=== PATIENT | female | born 1980 | race Caucasian/White ===

== ENCOUNTER 2023-11-29 10:17 | Outpatient (REF) | payer BC, SELFPAY ==
--- OUTSIDE RECORDS SUMMARY | 2023-11-29 10:22 | XMS_ITS | Referral Summary ---
Author Organization [facility] Address [address] [place] [address]. [place] [address] Care Team Providers Care Graphics Artist Name Role Phone Sanjuana Ambrocio PA-C Primary Care Provide r Encounters Date Type Department Care Team Description 09/10/2023 Medical Correspondence [facility] [address] [place] [address] Scan, Non-Provider 09/10/2023 Transcribe Orders GENERIC EXTERNAL DATA DEPARTMENT Provider, Generic External Data Hypothyroidism (Primary Dx) from Last 3 Months Allergies No known active allergies Medications Medication Sig Dispensed Refills Start Date End Date Status ARMOUR THYROID PO Take 135 mg by mouth daily 04/19/2020 Active Vit-Fe Fumarate-FA ( MULTIVITAMIN W/IRON) 27-0.8 MG tablet Take 1 tablet by mouth At Bedtime Active Vitamin D3 (CHOLECALCIFEROL) 25 mcg (1000 units) tablet Take 1 tablet by mouth daily Active oxyCODONE (ROXICODONE) 5 MG tabletIndications:Po stoperative pain One or two tablets PO q4h prn pain 12 tablet 08/24/2022 Active Additional Information Patient not taking.Reported on 09/25/2022 Active Problems Problem Noted Date Diagnosed Date Vaginal bleeding 08/23/2022 Hyponatremia 01/20/2022 Anemia due to blood loss, acute 01/20/2022 Hypothyroidism 01/20/2022 Pre-eclampsia, severe 01/20/2022 PIH ( induced hypertension) 01/16/2022 , 30 wks gestation 01/05/2022 Delivery with history of 04/21/2020 Status post 04/20/2020 Iron deficiency anemia, unspecified 01/26/2020 PIH ( induced hypertension), antepartum 04/07/2018 Resolved Problems Problem Noted Date Diagnosed Date Resolved Date Encounter for triage in patient 01/04/2022 01/05/2022 Social History Tobacco Use Types Packs/Day Years Used Date Smoking Tobacco: Never Smokeless Tobacco: Never Tobacco Cessation:Counseling Given: Not Answered Alcohol Use Standard Drinks/Week Comments Not Currently 0 (1 standard drink = 0.6 oz pur e alcohol) [place] Depression Scale Answer Date Recorded Last EPDS Total Score Not on file 01/21/2022 The thought of harming myself has occurred to me . Never 01/21/2022 Adolescent Education Answer Date Record ed Getting School Help Needed Not on file 01/12 Sex and Gender Information Value Date Recorded Sex Assigned at Not on file Gender Identity Not on file Sexual Orientation Not on file Last Filed Vital Signs Vital Sign Reading Time Taken Comments Blood Pressure 119/77 10/25/2022 11:48 AM CDT Pulse 62 10/25/2022 11:48 AM CDT Temperature 36.5 ??C (97.7 ??F) 10/25/2022 8:24 AM CD T Respiratory Rate 16 10/25/2022 8:24 AM CDT Oxygen Saturation 95% 10/25/2022 8:24 AM CDT Inhaled Oxygen Concentration - - Weight 89.9 kg (198 lb 3.1 oz) 08/23/2022 10:27 PM CDT Height 160 cm (5' 3) 08/23/2022 10:27 PM CDT Body Mass Index 35.11 08/23/2022 10:27 PM CDT Plan of Treatment Upcoming Encounters Date Type Department Care Team (Late st Contact Info) Description 05/05/2024 11:00 AM NREMT Virtual Visit [facility] [address] [place] [address] Lexi Low MD [address] [place] [address] Procedures Procedure Name Priority Date/Time Associated Diagnosis Comments GLUCOSE BY METER Routine 08/24/2022 6:02 AM CDT HIV 1&2 ANTIBODY (EXTERNAL RESULT) Routine 08/07/2021 from Last 3 Months or Most Recently Relevant to Health Maintenance Results * (ABNORMAL) Glucose by meter (08/24/2022 6:02 AM CDT) GLUCOSE BY METER POCT 127(H) 70 - 99 mg/dL 08/24/2022 6:09 AM CDT [facility] POCT RESULTS Blood, Capillary BLOOD SPECIMEN / Unknown 08/24/2022 6:02 AM CDT 08/24/2022 6:09 AM CDT Matheus Gordillo MD LAB - BEAKER POCT Performing Organization Address City/[facility]/ZIP Co de Phone Number [facility] POCT RESULTS [address] [place] [address] * HIV-1 Antibody (External Result) (08/07/2021) HIV 1&2 Antibody (External) Nonreactive Nonreactive EXTERNAL LAB 08/07/2021 Patient Reported LAB - HIM EXTERNAL R ESULT Performing Organization Address City/[facility]/ZIP Co de Phone Number EXTERNAL LAB External Lab from Last 3 Months or Most Recently Relevant to Health Maintenance Advance Directives For more information, please contact: [phone] * Full Code (Latest Code Status on File) Date Activated Date Inactivated Comments 08/23/2022 10:20 PM 08/24/2022 10:23 PM All basic an d advanced life-sustaining interventions are performed as appropriate Question Answer Comments Code status determined by: Other (please tucker t) * Full Code Date Activated Date Inactivated Comments 01/18/2022 12:15 PM 01/22/2022 4:37 PM All basic a nd advanced life-sustaining interventions are performed as appropriate Question Answer Comments Code status determined by: Other (please tucker t) * Full Code Date Activated Date Inactivated Comments 01/16/2022 7:34 PM 01/18/2022 12:15 PM All basic a nd advanced life-sustaining interventions are performed as appropriate Question Answer Comments Code status determined by: Other (please tucker t) * Full Code Date Activated Date Inactivated Comments 01/05/2022 6:11 AM 01/05/2022 2:12 PM All basic an d advanced life-sustaining interventions are performed as appropriate Question Answer Comments Code status determined by: Other (please tucker t) Care Teams Graphics Artist Relationship Specialty Start Date End Date Sanjuana Ambrocio PA-C [facility] [address] [place] [address] PCP - General deicer kit assembler 09/11/23
--- OUTSIDE RECORDS SUMMARY | 2023-11-29 10:22 | XMS_ITS | Clinical Summary ---
Author Organization [facility] Address [address] [place] [address] Care Team Providers Care Newsperson Name Role Phone Sanjuana Ambrocio PAKadie Primary Care Provide r Allergies No known active allergies Medications Medication [...] Encounter for triage in patient 01/04/2022 01/05/2022 Encounters Date Type Department Care Team Description 09/10/2023 Medical Correspondence [facility] Info Mgmt Srvcs [address] [address] Scan, Non-Provider 09/10/2023 Transcribe Orders GENERIC EXTERNAL DATA DEPARTMENT Provider, Generic External Data Hypothyroidism (Primary Dx) from Last 3 Months Social History Tobacco Use Types Packs/Day Years Used Date Smoking Tobacco: Never Smokeless Tobacco: Never Tobacco Cessation:Counseling Given: Not Answered Alcohol Use Standard Drinks/Week Comments Not Currently 0 (1 standard drink = 0.6 oz pur e alcohol) [place] Depression Scale Answer Date Recorded Last EPDS [...] st Contact Info) Description 05/05/2024 11:00 AM BROADCAST MAINTENANCE ENGINEER Virtual Visit [facility] [address] [place] [address] Lexi Low MD [address] [place] [address] Health Maintenance Due Date Last Done Comments ADVANCE CARE PLANNING 1981 ANNUAL REVIEW OF HM ORDERS 1981 MAMMO SCREENING 1981 TSH W/FREE T4 REFLEX 1981 YEARLY PREVENTIVE VISIT 1981 HEPATITIS C SCREENING 11/07/1999 HEPATITIS B IMMUNIZATION (1 of 3 - 19+ 3-dose series) 2000 DTAP/TDAP/TD IMMUNIZATION (1 - Tdap) 2006 LIPID 2021 PAP 10/28/2022 10/29/2019, 10/29/2019 COVID-19 Vaccine ( season) 2022 PHQ-2 (once per calendar year) 2023 INFLUENZA VACCINE (#1) 2023 GLUCOSE 08/24/2025 08/24/2022, 05/0 07/2022, 01/20/2022, Additional history exists HIV SCREENING Completed 08/07/2021, 08/07/2021 HPV IMMUNIZATION Aged Out No longer e ligible based on patient's age to complete this topic IPV IMMUNIZATION Aged Out No longer e ligible based on patient's age to complete this topic MENINGITIS IMMUNIZATION Aged Out No l onger eligible based on patient's age to complete this topic Pneumococcal Vaccine: Pediatrics (0 to 5 Years) and At-Risk Patients (6 to 64 Years) Aged Out No longer eligible based on patient's age to complete this topic RSV MONOCLONAL ANTIBODY Aged Out No l onger eligible based on patient's age to complete this topic Procedures Procedure Name Priority Date/Time Associated Diagnosis Comments GLUCOSE BY METER Routine 08/24/2022 6:02 AM CDT HIV 1&2 ANTIBODY (EXTERNAL RESULT) Routine 08/07/2021 from Last 3 Months or Most Recently Relevant to Health Maintenance Results * (ABNORMAL) Glucose by meter (08/24/2022 6:02 AM CDT) GLUCOSE BY METER POCT 127(H) 70 - 99 mg/dL 08/24/2022 6:09 AM CDT [facility] POCT RESULTS Blood, Capillary BLOOD SPECIMEN / Unknown 08/24/2022 6:02 AM CDT 08/24/2022 6:09 AM CDT Matheus Gordillo MD LAB - CHRYSTALAKER POCT [facility] POCT RESULTS [address] [place] [address] * HIV-1 Antibody (External Result) (08/07/2021) HIV 1&2 Antibody (External) Nonreactive Nonreactive EXTERNAL LAB 08/07/2021 Patient Reported LAB - HIM EXTERNAL R ESULT EXTERNAL LAB External Lab from Last 3 Months or Most Recently Relevant to Health Maintenance Advance Directives For more information, please contact: [phone] * Full Code (Latest Code Status on File) Date Activated Date Inactivated Comments 08/23/2022 10:20 PM 08/24/2022 10:23 PM All basic an d advanced life-sustaining interventions are performed as appropriate Question Answer Comments Code status determined by: Other (please documen t) * Full Code Date Activated Date Inactivated Comments 01/18/2022 12:15 PM 01/22/2022 4:37 PM All basic a nd advanced life-sustaining interventions are performed as appropriate Question Answer Comments Code status determined by: Other (please documen t) * Full Code Date Activated Date Inactivated Comments 01/16/2022 7:34 PM 01/18/2022 12:15 PM All basic a nd advanced life-sustaining interventions are performed as appropriate Question Answer Comments Code status determined by: Other (please documen t) * Full Code Date Activated Date Inactivated Comments 01/05/2022 6:11 AM 01/05/2022 2:12 PM All basic an d advanced life-sustaining interventions are performed as appropriate Question Answer Comments Code status determined by: Other (please tucker balderas) Care Teams Newsperson Relationship Specialty Start Date End Date Sanjuana Ambrocio PA-C [facility] [address] [address] PCP - General desktop support engineer 09/11/23
--- OUTSIDE RECORDS SUMMARY | 2023-11-29 10:23 | XMS_ITS | Encounter Summary ---
Author Organization [facility] Address [facility] [place] [address] Care Team Providers Care Epidemiology Intern Name Role Phone Luan Inman MD Primary Care Provide r Reason for Referral * Consultation (Routine) - Pending Review Specialty Diagnoses / Procedures Referred By Contac t Referred To Contact Endocrinology, Diabetes, and Metabolism Diagnoses Hypothyroidism Generic External Data Department Referral ID Status Reason Start Date Expiration Date V isits Requested Visits Authorized [id number] Pending Review 09/10/2023 09/09/2024 1 1 Question Answer Reason for Referral: Thyroid Scheduling Instructions: Link Trigger will call you to coordinate your care as prescribed by the provider. If you don? t hear from a entry level sales representative within 2 business days, please call [phone]. Comments Referred by: Nicolette Ambrocio [facility] Link Trigger will call you to coordinate your care as prescribed by the provider. If you don? t hear from a entry level sales representative within 2 business days, please call [phone]. Encounter Details Date Type Department Care Team (Latest Contact Info) Description 09/10/2023 Transcribe Orders GENERIC EXTERNAL DATA DEPARTMENT Provider, Generic External Data Hypothyroidism (Primary Dx) Social History Tobacco Use Types Packs/Day Years Used Date Smoking Tobacco: Never Smokeless Tobacco: Never Alcohol Use Standard Drinks/Week Comments Not Currently 0 (1 standard drink = 0.6 oz pur e alcohol) [place] Depression Scale Answer Date Recorded Last EPDS Total Score Not on file 01/21/2022 The thought of harming myself has occurred to me . Never 01/21/2022 Adolescent Education Answer Date Record ed Getting School Help Needed Not on file 01/12 Sex and Gender Information Value Date Recorded Sex Assigned at Not on file Gender Identity Not on file Sexual Orientation Not on file documented as of this encounter Plan of Treatment Upcoming Encounters Date Type Department Care Team (Late st Contact Info) Description 05/05/2024 11:00 AM ROOF FIXER Virtual Visit [facility] [address] [address] Lexi Low MD [address] [place] [address] Scheduled Referrals Name Type Priority Associated Diagnoses Orde r Schedule Adult Endocrinology Machinist Mechanic Referral Referral Routine Hypothyroidism Expected: 09/10/2023 (Approximate), Expires: 09/09/2024 documented as of this encounter Visit Diagnoses Diagnosis Hypothyroidism- Primary Unspecified hypothyroidism documented in this encounter Care Teams Epidemiology Intern Relationship Specialty Start Date End Date Luan Inman MD [facility] [address]TI [address] [address] PCP - General transition social worker 04/07/18 09/10/23 documented as of this encounter
--- OUTSIDE RECORDS SUMMARY | 2023-11-29 10:23 | XMS_ITS | Clinical Summary ---
Author Organization [facility] Address [address] [place] [address] Care Team Providers Care Mastic Sprayer Name Role Phone Dagoberto Hernández M.D. Primary Care Provider [phone] Source Comments Patient records contain information from all sites at [facility]. For routine questions regarding patient records, call [phone] during business hours, M-F 8:00 AM - 5:00 PM Central Time. Record requests for emergency care only can be directed to [phone] at any time.[facility] Allergies No known active allergies Medications Medication Sig Dispensed Refills Start Date End Date Status ibuprofen (ADVIL,MOTRIN) 800 mg tablet Take 800 mg by mouth. 04/10/2018 Active RUBBER CHEMIST THYROID 120 mg tablet Take 1 tablet (120 mg total) by mouth daily. 90 tablet 3 08/14/2018 Active medroxyPROGESTERone (PROVERA) 10 mg tablet 08/17/2019 Active multivitamin (Multiple Vitamins) tablet Take 1 tablet by mouth daily. Active thyroid, pork, ([place] Thyroid) 120 mg tablet Take 120 mg by mouth. Active estradioL (ESTRACE) 0.1 mg/g (0.01%) vaginal creamIndications:At rophy Vagina Due To Estrogen Deficiency Insert 1 g into the vagina as directed. Insert 1 gram vaginally at bedtime on MWF. 42.5 g 3 12/20/2022 12/20/2023 Active cholecalciferol, vitamin D3, 25 mcg (1,000 Unit) tablet Take 1 tablet by mouth daily. Active [place] Thyroid 30 mg tablet 01/28/2023 Active Active Problems Problem Noted Date Diagnosed Date Hypothyroidism 09/04/2019 Encounters Date Type Department Care Team Description 09/24/2023 Orders Only [facility] PCP [facility] MNT Dagoberto Hernández M.D. Hypothyroidism from Last 3 Months Social History Tobacco Use Types Packs/Day Years Used Date Smoking Tobacco: Never Smokeless Tobacco: Never Tobacco Cessation:Counseling Given: Not Answered Alcohol Use Standard Drinks/Week Comments No 0 (1 standard drink = 0.6 oz pur e alcohol) PHQ-2 Answer Date Recorded PHQ-2 Score 0 09/04/2019 Nutrition Answer Date Recorded Nutrition: EVOO Fat Source Unknown 06/20 Nutrition: Servings of Fruits/Vegetables per Day Not on file 06/20/2020 Dental Answer Date Recorded Dental: Regular Dentist Unknown 06/21/19 21 Sex and Gender Information Value Date Recorded Sex Assigned at Not on file Gender Identity Not on file Sexual Orientation Not on file Last Filed Vital Signs Vital Sign Reading Time Taken Comments Blood Pressure 128/87 01/06/2023 8:40 PM CDT Pulse 88 11/03/2020 3:14 PM CDT Temperature 36.8 ??C (98.2 ??F) 01/06/2023 8:40 PM CD T Respiratory Rate 20 01/06/2023 8:40 PM CDT Oxygen Saturation 98% 01/06/2023 8:40 PM CDT Inhaled Oxygen Concentration - - Weight 88.1 kg (194 lb 3.6 oz) 12/20/2022 8:30 A M CDT Height 160 cm (5' 2.99) 09/04/2019 2:44 PM CDT Body Mass Index 34.41 09/04/2019 2:44 PM CDT Plan of Treatment Health Maintenance Due Date Last Done Comments HIV Screening 1981 Hepatitis C Screening 1981 Lipid (Cholesterol) Screening 1981 Mammogram 1981 DTaP,Tdap,and Td Vaccines (1 - Tdap) 2000 Hepatitis B Vaccines (1 of 3 - 19+ 3-dose series) 2000 Thyroid Stimulating Hormone (TSH) test for thyroid function 06/16/2022 06/16/2021, 09/04/2019, 08/11/2018 COVID-19 Vaccine ( - 2022-2 4 season) 2022 Depression Screening (Annual PHQ-2) 04/22/2023 Influenza Vaccine (#1) 2024 HPV Vaccines Aged Out No longer eligi ble based on patient's age to complete this topic Pneumococcal vaccine (0-64 years) Aged Out No longer eligible b ased on patient's age to complete this topic Procedures Procedure Name Priority Date/Time Associated Diagnosis Comments THYROID-STIMULATING HORMONE-SENSITIVE (S-TSH) Routine 06/16/2021 3:42 PM ELECTRONIC GLUING MACHINE OPERATOR Hypothyroidism from Last 3 Months or Most Recently Relevant to Health Maintenance Results * S-TSH (Thyroid-Stimulating Hormone - Sensitive) (06/16/2021 3:42 PM ELECTRONIC GLUING MACHINE OPERATOR) TSH, Sensitive 0.3 0.3 - 4.2 mIU/L 06/16/2021 4:38 PM ELECTRONIC GLUING MACHINE OPERATOR CNFL Blood (Blood, Venous) 06/16/2021 3:42 PM ELECTRONIC GLUING MACHINE OPERATOR 06/16/2021 3:44 PM ELECTRONIC GLUING MACHINE OPERATOR Dagoberto Hernández M.D. LAB BLOOD ADD-ON [facility] [address] [place] [address], [place] CNFL [facility] [place] [id number] [place] [address] from Last 3 Months or Most Recently Relevant to Health Maintenance Care Teams Mastic Sprayer Relationship Specialty Start Date End Date Dagoberto Hernández M.D. [address] [place] [phone] PCP - General Family Medicine 08/11/18
--- OUTSIDE RECORDS SUMMARY | 2023-11-29 10:23 | XMS_ITS | Encounter Summary ---
Author Organization [facility] Address [address] [place] [address] Care Team Providers Care Yarn Mercerizer Operator Helper Name Role Phone Dagoberto Hernández M.D. Primary Care Provider [phone] Encounter Details Date Type Department Care Team ([facility] st Contact Info) Description 09/24/2023 Orders Only [facility] PCP [facility] Dagoberto Mays M.D. [address] [place] [phone] Hypothyroidism Social History Tobacco Use Types Packs/Day Years Used Date Smoking Tobacco: Never Smokeless Tobacco: Never Alcohol Use Standard Drinks/Week Comments No 0 [...] as of this encounter Plan of Treatment Scheduled Orders Name Type Priority Associated Diagnoses Orde r Schedule S-TSH (Thyroid-Stimulating Hormone - Sensitive) Lab Routine Hypothyroidism Expected: 10/08/2023, Expires: 03/22/2024 documented as of this encounter Visit Diagnoses Diagnosis Hypothyroidism documented in this encounter Care Teams Yarn Mercerizer Operator Helper Relationship Specialty Start Date End Date Dagoberto Hernández M.D. [address] [place] [phone] PCP - General Family Medicine 08/11/18 documented as of this encounter
--- OUTSIDE RECORDS SUMMARY | 2023-11-29 10:23 | XMS_ITS ---
Author Organization [facility] Address [address] [place] [address] Care Team Providers Care Living Supervisor Name Role Phone Unavailable Unavailable Unavailable Surgery Details Not on file Complications Check Surgery Details section. Procedure Estimated Blood Loss Check Surgery Details section. Procedure Findings Check Surgery Details section. Procedure Specimens Taken Check Surgery Details section.
--- OUTSIDE RECORDS SUMMARY | 2023-11-29 10:23 | XMS_ITS | Encounter Summary ---
Author Organization [facility] Address [address] [place] [address]. [place] [address] Care Team Providers Care Punch Out Crew Member Name Role Phone Luan Inman MD Primary Care Provide r Sanjuana Ambrocio PA-C Primary Care Provide r Encounter Details Date Type Department Care Team (Late Contact Info) Description 09/10/[address] [facility] Info Mgmt vcs [address] [place] [phone] Scan, Non-Provider Social History Tobacco Use Types Packs/Day Years Used Date Smoking Tobacco: Never Smokeless Tobacco: Never Alcohol Use Standard Drinks/Week Comments Not Currently 0 (1 standard drink = 0.6 oz pur e alcohol) [place] Depression Scale Answer Date Recorded Last EPDS [...] Encounters Date Type Department Care Team (Late Contact Info) Description 05/05/2024 11:00 AM FIRE SERVICES PLUMBER Virtual Visit [facility] [address] [place] [phone] Lexi Low MD [address] [place] [address] documented as of this encounter Visit Diagnoses Not on filedocumented in this encounter Care Teams Punch Out Crew Member Relationship Specialty Start Date End Date Luan Inman MD [facility] SHILPI BHATTI [address] [address] PCP - General bookkeeper assistant 04/07/18 09/10/23 Sanjuana Ambrocio PA-C [facility] [address] [place] [address] PCP - General bookkeeper assistant 09/11/23 documented as of this encounter
--- OUTSIDE RECORDS SUMMARY | 2023-11-29 10:23 | XMS_ITS | Referral Summary ---
Author Organization [facility] Address [address] [place] [address] Care Team Providers Care Ward Assistant Name Role Phone Dagoberto Hernández M.D. Primary Care Provider [phone] Source Comments Patient records contain information from all sites at [facility]. For routine questions regarding patient records, call [phone] during business hours, M-F 8:00 AM - 5:00 PM Central Time. Record requests for emergency care only can be directed to [phone] at any time.[facility] Encounters Date Type Department Care Team Description 09/24/2023 Orders Only [facility] MNT Dagoberto Hernández M.D. Hypothyroidism from Last 3 Months Allergies No known active allergies Medications Medication Sig Dispensed Refills Start Date End Date Status ibuprofen (ADVIL,MOTRIN) 800 mg tablet Take 800 mg by mouth. 04/10/2018 Active CUSTOMS INVESTIGATOR THYROID 120 mg tablet Take 1 tablet (120 mg total) by mouth daily. 90 tablet 3 08/14/2018 Active medroxyPROGESTERone (PROVERA) 10 mg tablet 08/17/2019 Active multivitamin (Multiple Vitamins) tablet Take 1 tablet by mouth daily. Active thyroid, pork, ([place] Thyroid) 120 mg tablet Take 120 mg by mouth. Active estradioL (ESTRACE) 0.1 mg/g (0.01%) vaginal creamIndications:At rophy Vagina Due To Estrogen Deficiency Insert 1 g into the vagina as directed. Insert 1 gram vaginally at bedtime on MWF. 42.5 g 3 12/20/2022 12/20/2023 Active cholecalciferol, vitamin D3, 25 mcg (1,000 Unit) tablet Take 1 tablet by mouth daily. Active [place] Thyroid 30 mg tablet 01/28/2023 Active Active Problems Problem Noted Date Diagnosed Date Hypothyroidism 09/04/2019 Social History Tobacco Use Types Packs/Day Years [...] 09/04/2019 2:44 PM CDT Plan of Treatment Not on file Procedures Procedure Name Priority Date/Time Associated Diagnosis Comments THYROID-STIMULATING HORMONE-SENSITIVE (S-TSH) Routine 06/16/2021 3:42 PM SHOOTER'S HELPER Hypothyroidism from Last 3 Months or Most Recently Relevant to Health Maintenance Results * S-TSH (Thyroid-Stimulating Hormone - Sensitive) (06/16/2021 3:42 PM SHOOTER'S HELPER) TSH, Sensitive 0.3 0.3 - 4.2 mIU/L 06/16/2021 4:38 PM SHOOTER'S HELPER CNFL Blood (Blood, Venous) 06/16/2021 3:42 PM SHOOTER'S HELPER 06/16/2021 3:44 PM SHOOTER'S HELPER Dagoberto Hernández M.D. LAB BLOOD ADD-ON [facility] [address] [place] [address], [place] CNFL [facility] in [address] [address] from Last 3 Months or Most Recently Relevant to Health Maintenance Care Teams Ward Assistant Relationship Specialty Start Date End Date Dagoberto Hernández M.D. [address] [place] [phone] PCP - General Family Medicine 08/11/18
--- OUTSIDE RECORDS SUMMARY | 2023-11-29 10:23 | XMS_ITS | Encounter Summary ---
Author Organization [place] Address [address] [place] [address] Care Team Providers Care Pasting Machine Operator Name Role Phone Luan Inman MD Primary Care Provide r Sanjuana Ambrocio PA-C Primary Care Provide r Encounter Details Date Type Department Care Team (Late st Contact Info) Description 11/17/2020 Documentation Only INTERFACED REPORT Unknown, Provider Social History Tobacco Use Types Packs/Day Years Used Date Smoking Tobacco: Never Smokeless Tobacco: Never Alcohol Use Standard Drinks/Week Comments Not Currently 0 (1 standard drink = 0.6 oz pur e alcohol) Sex and Gender Information Value Date Recorded Sex Assigned at Not on file Gender Identity Not on file Sexual Orientation Not on file documented as of this encounter Plan of Treatment Upcoming Encounters Date Type Department Care Team (Late st Contact Info) Description 05/05/2024 11:00 AM PRODUCTION HARDENER Virtual Visit [facility] End[facility]inology Clinic [address] [address] Lexi Low MD [address] [place] [phone] documented as of this encounter Visit Diagnoses Not on filedocumented in this encounter Care Teams Pasting Machine Operator Relationship Specialty Start Date End Date Luan Inman MD [address] [place] [address] PCP - General hide shaker 04/07/18 09/10/23 Sanjuana Ambrocio PA-C [facility] [address] [place] [address] PCP - General hide shaker 09/11/23 documented as of this encounter
[2023-11-29 10:53] LABS: Albumin* 4.3 g/dL (3.3-5.0); Chloride* 104 mmol/L (96-114)
[2023-11-29 10:54] LABS: Potassium* 4.2 mmol/L (3.6-5.1); Sodium* 138 mmol/L (135-149)
[2023-11-29 10:56] LABS: Alkaline Phosphatase* 69 U/L (40-150); Anion Gap 7 mEq/L (7-15); Aspartate Amino Transferase* 28 U/L (12-35); Bilirubin Direct* 0.3 mg/dL (0.0-0.5); Bilirubin Total* 0.8 mg/dL (0.1-1.5); Blood Urea Nitrogen* 15 mg/dL (5-24); Carbon Dioxide* 27 mmol/L (20-32); Cholesterol* 212 mg/dL (90-199); Creatinine* 0.6 mg/dL (0.5-1.5); Estimated Glomerular Filt Rate 115 ml/min; Total Protein* 7.5 g/dL (6.0-8.3)
[2023-11-29 10:57] LABS: Alanine Aminotransferase* 15 U/L (4-35); Calcium* 9.2 mg/dL (8.4-10.6); Glucose* 89 mg/dL (60-115); HDL Cholesterol* 48 mg/dL (>=50); Triglycerides* 97 mg/dL (40-149)
[2023-11-29 11:03] LABS: C Reactive Protein* < 0.5 mg/dL (0.5-1.0); LDL Cholesterol Calculated 145 mg/dL (<100)
[2023-11-29 11:13] LABS: Free T4 Free Thyroxine* 0.58 ng/dL (0.70-1.85)
[2023-11-29 11:59] LABS: Erythrocyte SedimentationRate* 5 mm/hr (2-20)
[2023-11-30 12:19] LABS: Estradiol Premenol Female 159 pg/mL
[2023-11-30 13:06] LABS: Prolactin 9.7 ng/mL (2.8-29.2)
[2023-11-30 18:42] LABS: Cortisol, Serum 14.7 ug/dL; Follicle Stimulating Hormone 1.8 IU/L; Luteinizing Hormone, Serum 4.2 IU/L
[2023-11-30 19:04] LABS: Free T3 2.4 pg/mL (2.5-4.3)
[2023-12-01 02:35] LABS: DHEAS 133 ug/dL (61-337)
[2023-12-04 00:44] LABS: Testosterone, Low Level 26 ng/dL (9-55)
[2023-12-04 01:52] LABS: Progesterone, HPLC-MS/MS 9.37 ng/mL
== END 2023-11-29 10:18 | disposition home or self-care (01) ==
LOC: NPINS 10:17
PROVIDERS: Visit Provider Family Medicine
DX: R53.83 Other fatigue (principal); E28.9 Ovarian dysfunction, unspecified; E03.9 Hypothyroidism, unspecified; E78.49 Other hyperlipidemia; E06.3 Autoimmune thyroiditis
CPT/HCPCS: 80048; 80061; 80076; 82533; 82627; 82670; 83001; 83002; 84144; 84146; 84403; 84439; 84443; 84481; 85651; 86140; 86376

== ENCOUNTER 2024-02-10 13:05 | Outpatient (REF) | payer BC, SELFPAY ==
--- OUTSIDE RECORDS SUMMARY | 2024-02-10 13:09 | XMS_ITS | Clinical Summary ---
Author Organization [place] Address [address] [place] [address] Care Team Providers Care Warping Machine Operator Name Role Phone Sanjuana Ambrocio PAKadie Primary [...] drink = 0.6 oz pur e alcohol) [place] Depression Scale Answer Date Recorded Last EPDS [...] st Contact Info) Description 05/05/2024 11:00 AM COMMUNICATIONS SUPERVISOR Virtual Visit [facility] Endocrinology Clinic [address] 3rd [place] [address] Lexi Low MBBS [address] [facility] [address] [place] [address] Health Maintenance Due Date Last Done Comments ADVANCE CARE PLANNING 1981 ANNUAL REVIEW OF HM ORDERS 1981 MAMMO SCREENING 1981 TSH W/FREE T4 REFLEX 1981 YEARLY PREVENTIVE VISIT 1981 HEPATITIS C SCREENING 11/07/1999 HEPATITIS B IMMUNIZATION (1 of 3 - 19+ 3-dose series) 2000 DTAP/TDAP/TD IMMUNIZATION (1 - Tdap) 2006 LIPID 2021 PAP 10/28/2022 10/29/2019, 10/29/2019 PHQ-2 (once per calendar year) 2023 COVID-19 Vaccine ( - 2023-25 season) 2023 INFLUENZA VACCINE (#1) 2023 GLUCOSE 08/24/2025 08/24/2022, 05/0 07/2022, 01/20/2022, Additional history exists RSV VACCINE (1 - 1-dose 75+ series) 2056 HIV SCREENING Completed 08/07/2021, 08/07/2021 HPV IMMUNIZATION [...] - 99 mg/dL 08/24/2022 6:09 AM CDT [facility] POCT RESULTS Blood, Capillary BLOOD SPECIMEN / Unknown 08/24/2022 6:02 AM CDT 08/24/2022 6:09 AM CDT Matheus Gordillo MD LAB - BEAKER POCT [facility] POCT RESULTS [address] [place] [address] * HIV-1 Antibody (External Result) (08/07/2021) HIV 1&2 Antibody (External) Nonreactive Nonreactive EXTERNAL LAB 08/07/2021 Patient Reported LAB - HIM EXTERNAL R ESULT EXTERNAL LAB External Lab from Last 3 Months or Most Recently Relevant to Health Maintenance Advance Directives For more information, please contact: [phone] * Full Code (Latest Code Status on [...] Comments Code status determined by: Other (please docgracie t) * Full Code Date Activated Date [...] Comments Code status determined by: Other (please docslickn t) Care Teams Warping Machine Operator Relationship Specialty Start Date End Date Sanjuana Ambrocio PA-C [facility] [address] [place] [address] PCP - General gum scoring machine operator 09/11/23
--- OUTSIDE RECORDS SUMMARY | 2024-02-10 13:09 | XMS_ITS | Referral Summary ---
Author Organization [facility] Address [address] [place] [address] Care Team Providers Care Business Analyst Consultant Name Role Phone Dagoberto Hernández M.D. Primary Care Provider [phone] Source Comments Patient records contain information from all sites at [facility]. For routine questions regarding patient records, call [phone] during business hours, M-F 8:00 AM - 5:00 PM Central Time. Record requests for emergency care only can be directed to [phone] at any time.[facility] Encounters Date Type Department Care Team Description 12/24/2023 Orders Only [facility] MNT Dagoberto Hernández M.D. Screening Lipid from Last 3 Months Allergies No known active allergies Medications * This document contains information received from the source organization and may not represent a complete record from that organization. ibuprofen (ADVIL,MOTRIN) 800 mg tablet Take 800 mg by mouth. 8 Active DIRECTOR CHANNEL THYROID 120 mg tablet Take 1 tablet (120 mg total) by mouth daily. 90 tablet 3 9 Active medroxyPROGESTE Karlo (PROVERA) 10 mg tablet 0 Active multivitamin (Multiple Vitamins) tablet Take 1 tablet by mouth daily. Active thyroid, pork, ([place] Thyroid) 120 mg tablet Take 120 mg by mouth. Active estradioL (ESTRACE) 0.1 mg/g (0.01%) vaginal creamIndication s:Atrophy Vagina Due To Estrogen Deficiency Insert 1 g into the vagina as directed. Insert 1 gram vaginally at bedtime on MWF. 42.5 g 3 3 Active cholecalciferol , vitamin D3, 25 mcg (1,000 Unit) tablet Take 1 tablet by mouth daily. Active [place] Thyroid 30 mg tablet Active Active Problems Problem Noted Date Diagnosed [...] Recorded Dental: Regular Dentist Unknown 06/21/19 21 Comments No Sex and Gender Information Value Date Recorded Sex Assigned at Not on file Legal Sex Female 1:15 PM CDT Gender Identity Not on file Sexual Orientation [...] THYROID-STIMULATING HORMONE-SENSITIVE (S-TSH) Routine 06/16/2021 3:42 PM BOARDER STEAM Hypothyroidism from Last 3 Months or Most Recently Relevant to Health Maintenance Results * S-TSH (Thyroid-Stimulating Hormone - Sensitive) (06/16/2021 3:42 PM BOARDER STEAM) TSH, Sensitive 0.3 0.3 - 4.2 mIU/L 06/16/2021 4:38 PM BOARDER STEAM CNFL Blood (Blood, Venous) 06/16/2021 3:42 PM BOARDER STEAM 06/16/2021 3:44 PM BOARDER STEAM us Dagoberto Hernández M.D. LAB BLOOD ADD-ON Final Resu lt [facility] [address] [place] [id number], [facility] CNFL [facility] in [address] [address] from Last 3 Months or Most Recently Relevant to Health Maintenance Insurance [facility] Care Teams Business Analyst Consultant Relationship Specialty Start Date End Date Dagoberto Hernández M.D. [address] [place] [phone] PCP - General Family Medicine 08/11/18
--- OUTSIDE RECORDS SUMMARY | 2024-02-10 13:09 | XMS_ITS | Clinical Summary ---
Author Organization [facility] Address [address] [place] [address] Care Team Providers Care Clothes Shaker Name Role Phone Dagoberto Hernández M.D. Primary Care Provider [phone] Source Comments Patient records contain information from all sites at [facility]. For routine questions regarding patient records, call [phone] during business hours, M-F 8:00 AM - 5:00 PM Central Time. Record requests for emergency care only can be directed to [phone] at any time.[facility] Allergies No known active allergies Medications * This document contains information received from the source organization and may not represent a complete record from that organization. ibuprofen (ADVIL,MOTRIN) 800 mg tablet Take 800 mg by mouth. 8 Active BRICK CLEANER THYROID 120 mg tablet Take 1 tablet (120 mg total) by mouth daily. 90 tablet 3 9 Active medroxyPROGESTE Karlo (PROVERA) 10 mg tablet 0 Active multivitamin (Multiple Vitamins) tablet Take 1 tablet by mouth daily. Active thyroid, pork, ([place] Thyroid) 120 mg tablet Take 120 mg by mouth. Active estradioL (ESTRACE) 0.1 mg/g (0.01%) vaginal creamIndication s:Atrophy Vagina Due To Estrogen Deficiency Insert 1 g into the vagina as directed. Insert 1 gram vaginally at bedtime on MWF. 42.5 g 3 3 Active cholecalciferol , vitamin D3, 25 mcg (1,000 Unit) tablet Take 1 tablet by mouth daily. Active [place] Thyroid 30 mg tablet 3 Active Active Problems Problem Noted Date Diagnosed Date Hypothyroidism 09/04/2019 Encounters Date Type Department Care Team Description 12/24/2023 Orders Only [facility] Dagoberto Hernández M.D. Screening Lipid from Last 3 Months Social History Tobacco [...] for thyroid function 06/16/2022 06/16/2021, 09/04/2019, 08/11/2018 Depression Screening (Annual PHQ-2) 04/22/2023 COVID-19 Vaccine (2023-2 5 season) 2023 Influenza Vaccine (#1) 2024 HPV Vaccines Aged Out No longer eligi ble based on patient's age to complete this topic Pneumococcal vaccine (0-64 years) Aged Out No longer eligible b ased on patient's age to complete this topic Procedures Procedure Name Priority Date/Time Associated Diagnosis Comments THYROID-STIMULATING HORMONE-SENSITIVE (S-TSH) Routine 06/16/2021 3:42 PM SEWAGE TREATMENT PLANT OPERATOR Hypothyroidism from Last 3 Months or Most Recently Relevant to Health Maintenance Results * S-TSH (Thyroid-Stimulating Hormone - Sensitive) (06/16/2021 3:42 PM SEWAGE TREATMENT PLANT OPERATOR) TSH, Sensitive 0.3 0.3 - 4.2 mIU/L 06/16/2021 4:38 PM SEWAGE TREATMENT PLANT OPERATOR CNFL Blood (Blood, Venous) 06/16/2021 3:42 PM SEWAGE TREATMENT PLANT OPERATOR 06/16/2021 3:44 PM SEWAGE TREATMENT PLANT OPERATOR us Dagoberto Hernández M.D. LAB BLOOD ADD-ON Final Resu lt [facility] [address] [place] [phone], [facility] CNFL [facility] in [address] [address] from Last 3 Months or Most Recently Relevant to Health Maintenance Insurance [facility] Care Teams Clothes Shaker Relationship Specialty Start Date End Date Dagoberto Hernández M.D. [id number] [phone] PCP - General Family Medicine 08/11/18
--- OUTSIDE RECORDS SUMMARY | 2024-02-10 13:09 | XMS_ITS | Referral Summary ---
Author Organization [place] Address [address] [place] [address] Care Team Providers Care Beam Carrier Hauler Pusher Name Role Phone Sanjuana Ambrocio PAKadie Primary [...] drink = 0.6 oz pur e alcohol) [place] Depression Scale Answer Date Recorded Last EPDS [...] st Contact Info) Description 05/05/2024 11:00 AM RICE MILLING SUPERVISOR Virtual Visit [facility] Endocrinology Clinic [address] 3rd [place] [address] Lexi Low MBBS 420 [facility], [facility] [address] [place] [address] Procedures Procedure Name Priority Date/Time Associated Diagnosis Comments GLUCOSE BY METER Routine 08/24/2022 6:02 AM CDT HIV 1&2 ANTIBODY (EXTERNAL RESULT) Routine 08/07/2021 from Last 3 Months or Most Recently Relevant to Health Maintenance Results * (ABNORMAL) Glucose by meter (08/24/2022 6:02 AM CDT) GLUCOSE BY METER POCT 127(H) 70 - 99 mg/dL 08/24/2022 6:09 AM CDT [facility] POCT RESULTS Blood, Capillary BLOOD SPECIMEN / Unknown 08/24/2022 6:02 AM CDT 08/24/2022 6:09 AM CDT Matheus Gordillo MD LAB - BEAKER POCT [facility] POCT RESULTS [address] [place] [address] * HIV-1 Antibody (External Result) (08/07/2021) HIV 1&2 Antibody (External) Nonreactive Nonreactive EXTERNAL LAB 08/07/2021 Patient Reported LAB - HIM EXTERNAL R ESULT EXTERNAL LAB External Lab from Last 3 Months or Most Recently Relevant to Health Maintenance Advance Directives For more information, please contact: [phone] * Full Code (Latest Code Status on File) Date Activated Date Inactivated Comments 08/23/2022 10:20 PM 08/24/2022 10:23 PM All basic an d advanced life-sustaining interventions are performed as appropriate Question Answer Comments Code status determined by: Other (please tucker balderas) * Full Code Date Activated Date Inactivated [...] by: Other (please tucker t) Care Teams Beam Carrier Hauler Pusher Relationship Specialty Start Date End Date Sanjuana Ambrocio PA-C [facility] [address] [place] [address] PCP - General paint preparer 09/11/23
--- OUTSIDE RECORDS SUMMARY | 2024-02-10 13:09 | XMS_ITS | Encounter Summary ---
Author Organization [facility] Address [address] [place] [address] Care Team Providers Care Pugger Helper Name Role Phone Dagoberto Hernández M.D. Primary Care Provider [phone] Encounter Details Date Type Department Care Team ([facility] st Contact Info) Description 12/24/2023 [facility] M.D. [address] [place] [phone] Screening Lipid Social History Tobacco Use Types Packs/Day Years [...] Type Priority Associated Diagnoses Orde r Schedule Lipid Panel Lab Routine Screening Lipid Expected: 01/07/2024, Expires: 06/21/2024 documented as of this encounter Visit Diagnoses Diagnosis Screening Lipid documented in this encounter Care Teams Pugger Helper Relationship Specialty Start Date End Date Dagoberto Hernández M.D. [address] [place] [phone] PCP - General Family Medicine 08/11/18 documented as of this encounter
--- OUTSIDE RECORDS SUMMARY | 2024-02-10 13:09 | XMS_ITS ---
Author Organization [facility] Address [address] [place] [address] Care Team Providers Care Composite Assembler Name Role Phone Unavailable Unavailable Unavailable Surgery Details Not on file Complications Check Surgery Details section. Procedure Estimated Blood Loss Check Surgery Details section. Procedure Findings Check Surgery Details section. Procedure Specimens Taken Check Surgery Details section.
--- OUTSIDE RECORDS SUMMARY | 2024-02-10 13:09 | XMS_ITS | Encounter Summary ---
Author Organization [place] Address [address] [place] [address] Care Team Providers Care Shoe Singer Name Role Phone Luan Imnan MD Primary Care Provide r Sanjuana Ambrocio [...] st Contact Info) Description 05/05/2024 11:00 AM CLUB ATTENDANT Virtual Visit [facility] End[facility]ology [facility] [place] [address] [place] [address] Lexi Low MBBS [address] [facility] [address] [place] [address] documented as of this encounter Visit Diagnoses Not on filedocumented in this encounter Care Teams Shoe Singer Relationship Specialty Start Date End Date Luan Inman MD [address] [address] PCP - General manager line 04/07/18 09/10/23 Sanjuana Ambrocio PA-C [facility] [address] [facility] [facility] [place] [address] PCP - General manager line 09/11/23 documented as of this encounter
[2024-02-10 15:24] LABS: Free T4 Free Thyroxine* 0.64 ng/dL (0.70-1.85)
[2024-02-13 08:38] LABS: Free T3 7.1 pg/mL (2.5-4.3)
== END 2024-02-10 13:06 | disposition home or self-care (01) ==
LOC: NPINS 13:05
PROVIDERS: Visit Provider Family Medicine
DX: E03.9 Hypothyroidism, unspecified (principal)
CPT/HCPCS: 84439; 84443; 84481

== ENCOUNTER 2024-03-16 12:21 | Outpatient (REF) | payer BC, SELFPAY ==
--- OUTSIDE RECORDS SUMMARY | 2024-03-16 12:25 | XMS_ITS | Encounter Summary ---
Author Organization [facility] Address [address] [place] [address] Care Team Providers Care Record Filing Clerk Name Role Phone Dagoberto Hernández M.D. Primary Care Provider [phone] Encounter Details Date Type Department Care Team ([facility] st Contact Info) Description 12/24/2023 Orders Only [facility] PCP [facility] MNT Dagoberto Hernández M.D. [address] [place] [phone] Screening Lipid Social History Tobacco Use [...] Lipid documented in this encounter Care Teams Record Filing Clerk Relationship Specialty Start Date End Date Dagoberto Hernández M.D. [address] [place] [phone] PCP - General Family Medicine 08/11/18 documented as of this encounter
--- OUTSIDE RECORDS SUMMARY | 2024-03-16 12:25 | XMS_ITS | Clinical Summary ---
Author Organization [place] Address [address] [place] [address] Care Team Providers Care Belt Glass Sander Name Role Phone Sanjuana Ambrocio PAKadie Primary Care Provide r Allergies No known active allergies Medications ARMOUR THYROID PO Take 135 mg by mouth daily 0 Active Vit-Fe Fumarate-FA ( MULTIVITAMIN W/IRON) 27-0.8 MG tablet Take 1 tablet by mouth At Bedtime Active Vitamin D3 (CHOLECALCIFEROL ) 25 mcg (1000 units) tablet Take 1 tablet by mouth daily Active oxyCODONE (ROXICODONE) 5 MG tabletIndication s:Postoperative pain One or two tablets PO q4h prn pain 12 tablet 3 Active Additional Information Patient not taking.Reported on [...] drink = 0.6 oz pur e alcohol) [place] Depression Scale Answer Date Recorded Last EPDS Total Score Not on file 01/21/2022 The thought of harming myself has occurred to me . Never 01/21/2022 Adolescent Education Answer Date Record ed Getting School Help Needed Not on file 01/12 Comments No Sex and Gender Information Value Date Recorded Sex Assigned at Not on file Legal Sex Female 5:01 PM CDT Gender Identity Not on file Sexual Orientation Not on file Last Filed Vital Signs Vital Sign Reading Time Taken Comments Blood Pressure 119/77 10/25/2022 11:48 AM CDT Pulse 62 10/25/2022 11:48 AM CDT Temperature 36.5 C (97.7 F) 10/25/2022 8:24 AM CDT Respiratory Rate 16 10/25/2022 8:24 AM CDT [...] st Contact Info) Description 05/05/2024 11:00 AM FOOD AND BEVERAGE CONTROLLER Virtual Visit [facility] Endocrinology Clinic [address]rd [place] [address] Lexi Low, TOVA [address] [facility], [facility] [address] [place] [address] Health Maintenance Due Date Last Done Comments [...] calendar year) 2023 COVID-19 Vaccine ( - season) 2023 INFLUENZA VACCINE (#1) 2023 GLUCOSE [...] - 99 mg/dL 08/24/2022 6:09 AM CDT [facility] POCT RESULTS Blood, Capillary BLOOD SPECIMEN / Unknown 08/24/2022 6:02 AM CDT 08/24/2022 6:09 AM CDT Matheus Gordillo MD [facility] POCT Fi nal Result Performing Organization Address City/[facility]/ZIP Co de Phone Number [facility] POCT RESULTS [address] [place] [address] * HIV-1 Antibody (External Result) (08/07/2021) HIV 1&2 Antibody (External) Nonreactive Nonreactive EXTERNAL LAB 08/07/2021 us Patient Reported LAB - HIM EXTERNAL RESULT Final Result Performing Organization Address City/[facility]/ZIP Co de Phone Number EXTERNAL LAB External Lab from Last 3 Months or Most Recently Relevant to Health Maintenance Insurance [facility] Advance Directives For more information, please contact: [phone] * Full Code (Latest Code Status on File) Date Activated Date Inactivated Comments 08/23/2022 10:20 PM 08/24/2022 10:23 PM All basic an d advanced life-sustaining interventions are performed as appropriate Question Answer Comments Code status determined by: Other (please docslickn t) * Full Code Date Activated Date Inactivated Comments 01/18/2022 12:15 PM 01/22/2022 4:37 PM All basic a nd advanced life-sustaining interventions are performed as appropriate Question Answer Comments Code status determined by: Other (please docslickn t) * Full Code Date Activated Date [...] by: Other (please tucker t) Care Teams Belt Glass Sander Relationship Specialty Start Date End Date Sanjuana Ambrocio PA-C [address] [address] PCP - General cycle director 09/11/23
--- OUTSIDE RECORDS SUMMARY | 2024-03-16 12:25 | XMS_ITS | Referral Summary ---
Author Organization [facility] Address [address] [place] [address] Care Team Providers Care President Practicing Urologist Name Role Phone Dagoberto Hernández M.D. Primary Care Provider [phone] Source Comments Patient records contain information from all sites at [facility]. For routine questions regarding patient records, call [phone] during business hours, M-F 8:00 AM - 5:00 PM Central Time. Record requests for emergency care only can be directed to [phone] at any time.[facility] Encounters Date Type Department Care Team Description 12/24/2023 Orders Only [facility] PCP [facility] MNT Dagoberto Hernández M.D. Screening Lipid from Last 3 Months Allergies No known active allergies Medications * This document contains information received from the source organization and may not represent a complete record from that organization. ibuprofen (ADVIL,MOTRIN) 800 mg tablet Take 800 mg by mouth. 8 Active UNDERGROUND MINER THYROID 120 mg tablet Take 1 tablet (120 mg total) by mouth daily. 90 tablet 3 9 Active medroxyPROGESTE Karlo (PROVERA) 10 mg tablet 0 Active multivitamin (Multiple Vitamins) tablet Take 1 tablet by mouth daily. Active thyroid, pork, ([place] Thyroid) 120 mg tablet Take 120 mg by mouth. Active estradioL (ESTRACE) 0.1 mg/g (0.01%) vaginal creamIndication s:Atrophy Vagina Due To Estrogen Deficiency Insert 1 g into the vagina as directed. Insert 1 gram vaginally at bedtime on MWF. 42.5 g 3 3 Active cholecalciferol , vitamin D3, 25 mcg (1,000 Unit) tablet Take 1 tablet by mouth daily. Active [place] Thyroid 30 mg tablet 3 Active Active [...] 88 11/03/2020 3:14 PM CDT Temperature 36.8 C (98.2 F) 01/06/2023 8:40 PM CDT Respiratory Rate 20 01/06/2023 8:40 PM CDT [...] THYROID-STIMULATING HORMONE-SENSITIVE (S-TSH) Routine 06/16/2021 3:42 PM KNAPSACK SPRAYER Hypothyroidism from Last 3 Months or Most Recently Relevant to Health Maintenance Results * S-TSH (Thyroid-Stimulating Hormone - Sensitive) (06/16/2021 3:42 PM KNAPSACK SPRAYER) TSH, Sensitive 0.3 0.3 - 4.2 mIU/L 06/16/2021 4:38 PM KNAPSACK SPRAYER CNFL Blood (Blood, Venous) 06/16/2021 3:42 PM KNAPSACK SPRAYER 06/16/2021 3:44 PM KNAPSACK SPRAYER Dagoberto Hernández M.D. LAB BLOOD ADD-ON Final Re sult [facility] [address] [place] [address], [facility] CNFL [facility] in [address] [address] from Last 3 Months or Most Recently Relevant to Health Maintenance Insurance [facility] C[facility] Care Teams President Practicing Urologist Relationship Specialty Start Date End Date Dagoberto Hernández M.D. [address] [place] [phone] PCP - General Family Medicine 08/11/18
--- OUTSIDE RECORDS SUMMARY | 2024-03-16 12:25 | XMS_ITS | Clinical Summary ---
Author Organization [facility] Address [address] [place] [address] Care Team Providers Care Top Installer Name Role Phone Dagoberto Hernández M.D. Primary Care Provider [phone] Source Comments Patient records contain information from all sites at [facility]. For routine questions regarding patient records, call [phone] during business hours, M-F 8:00 AM - 5:00 PM Central Time. Record requests for emergency care only can be directed to [phone] at any time.[facility] Allergies No known active allergies Medications * This document contains information received from the source organization and may not represent a complete record from that organization. ibuprofen (ADVIL,MOTRIN) 800 mg tablet Take 800 mg by mouth. 8 Active QUICK SERVICE TECHNICIAN THYROID 120 mg tablet Take 1 tablet (120 mg total) by mouth daily. 90 tablet 3 9 Active medroxyPROGESTE Karlo (PROVERA) 10 mg tablet 0 Active multivitamin (Multiple Vitamins) tablet Take 1 tablet by mouth daily. Active thyroid, pork, ([place]ena Thyroid) 120 mg tablet Take 120 mg by mouth. Active estradioL (ESTRACE) 0.1 mg/g (0.01%) vaginal creamIndication s:Atrophy Vagina Due To Estrogen Deficiency Insert 1 g into the vagina as directed. Insert 1 gram vaginally at bedtime on MWF. 42.5 g 3 3 Active cholecalciferol , vitamin D3, 25 mcg (1,000 Unit) tablet Take 1 tablet by mouth daily. Active Mena Thyroid 30 mg tablet 3 Active Active Problems Problem Noted Date Diagnosed Date Hypothyroidism 09/04/2019 Encounters Date Type Department Care Team Description 12/24/2023 Orders Only [facility] Dagoberto Mays M.D. Screening Lipid from Last 3 Months [...] patient's age to complete this topic IPV Vaccines Aged Out No longer eligi ble based on patient's age to complete this topic Pneumococcal vaccine (0-64 years) Aged Out No longer eligible b ased on patient's age to complete this topic Procedures Procedure Name Priority Date/Time Associated Diagnosis Comments THYROID-STIMULATING HORMONE-SENSITIVE (S-TSH) Routine 06/16/2021 3:42 PM SUGARCANE RESEARCH TECHNICIAN Hypothyroidism from Last 3 Months or Most Recently Relevant to Health Maintenance Results * S-TSH (Thyroid-Stimulating Hormone - Sensitive) (06/16/2021 3:42 PM SUGARCANE RESEARCH TECHNICIAN) TSH, Sensitive 0.3 0.3 - 4.2 mIU/L 06/16/2021 4:38 PM SUGARCANE RESEARCH TECHNICIAN CNFL Blood (Blood, Venous) 06/16/2021 3:42 PM SUGARCANE RESEARCH TECHNICIAN 06/16/2021 3:44 PM SUGARCANE RESEARCH TECHNICIAN us Dagoberto Hernández M.D. LAB BLOOD ADD-ON Final Re sult [facility] Organization Address City/State/ZIP Co de Phone Number [facility] [address] [place] [id number], [place] CNFL [facility] in [address] [address] from Last 3 Months or Most Recently Relevant to Health Maintenance Insurance [facility] Care Teams Top Installer Relationship Specialty Start Date End Date Dagoberto Hernández M.D. [id number] [phone] PCP - General Family Medicine 08/11/18
--- OUTSIDE RECORDS SUMMARY | 2024-03-16 12:25 | XMS_ITS | Referral Summary ---
Author Organization [facility] Address [address] [place] [address] Care Team Providers Care Fox Raiser Name Role Phone Sanjuana Ambrocio PAKadie Primary [...] drink = 0.6 oz pur e alcohol) [place] Depression Scale Answer Date Recorded Last EPDS [...] st Contact Info) Description 05/05/2024 11:00 AM AUTISM TUTOR Virtual Visit [facility] [place] [address] [facility] 3rd [place] [address] Lexi Low, TOVA [address] [facility] [address] [place], [place] [address] Procedures Procedure Name Priority Date/Time Associated Diagnosis Comments GLUCOSE BY METER Routine 08/24/2022 6:02 AM CDT HIV 1&2 ANTIBODY (EXTERNAL RESULT) Routine 08/07/2021 from Last 3 Months or Most Recently Relevant to Health Maintenance Results * (ABNORMAL) Glucose by meter (08/24/2022 6:02 AM CDT) GLUCOSE BY METER POCT 127(H) 70 - 99 mg/dL 08/24/2022 6:09 AM CDT [facility] POCT RESULTS Blood, Capillary BLOOD SPECIMEN / Unknown 08/24/2022 6:02 AM CDT 08/24/2022 6:09 AM CDT us Matheus Gordillo MD LAB - BE[facility] POCT Fi nal Result Performing Organization Address City/[facility]/ZIP Co de Phone Number [facility] POCT RESULTS [address] [place] [address] * HIV-1 Antibody (External Result) (08/07/2021) HIV 1&2 Antibody (External) Nonreactive Nonreactive EXTERNAL LAB 08/07/2021 us Patient Reported LAB - HIM EXTERNAL RESULT Final Result EXTERNAL LAB External Lab from Last 3 Months or Most Recently Relevant to Health Maintenance [place] [address] [place] [address] Advance Directives For more information, please contact: [phone] * Full Code (Latest Code Status on [...] by: Other (please tucker t) Care Teams Fox Raiser Relationship Specialty Start Date End Date Sanjuana Ambrocio PA-C [facility] [address] [place] [address] PCP - General staff radiographer 09/11/23
--- OUTSIDE RECORDS SUMMARY | 2024-03-16 12:25 | XMS_ITS | Encounter Summary ---
Author Organization [facility] Address [address] [place] [address] Care Team Providers Care Coupon Manifest Clerk Name Role Phone Luan Inman MD Primary [...] drink = 0.6 oz pur e alcohol) Comments Unknown Sex and Gender Information Value Date Recorded Sex Assigned at Not on file Legal Sex Female 5:01 PM CDT Gender Identity Not on file Sexual Orientation Not on file documented as of this encounter Plan of Treatment Upcoming Encounters Date Type Department Care Team (Late st Contact Info) Description 05/05/2024 11:00 AM WOUND TREATMENT RN Virtual Visit [facility] [place] [address] [facility] 3rd [place] [address] Lexi Low, TOVA [address] [facility] [address] [place], [place] [address] documented as of this encounter Visit Diagnoses Not on filedocumented in this encounter Care Teams Coupon Manifest Clerk Relationship Specialty Start Date End Date [facility] Inman [facility] [address] [address] PCP - General event marketing intern 04/07/18 09/10/23 Sanjuana Ambrocio PA-C [facility] [address] [place] [address] PCP - General event marketing intern 09/11/23 documented as of this encounter
--- OUTSIDE RECORDS SUMMARY | 2024-03-16 12:25 | XMS_ITS ---
Author Organization [facility] Address [address] [place] [address] Care Team Providers Care Financial Operations Consultant Name Role Phone Unavailable Unavailable Unavailable Surgery Details Not on file Complications Check Surgery Details section. Procedure Estimated Blood Loss Check Surgery Details section. Procedure Findings Check Surgery Details section. Procedure Specimens Taken Check Surgery Details section.
[2024-03-16 13:00] LABS: Free T4 Free Thyroxine* 1.16 ng/dL (0.70-1.85)
[2024-03-17 23:13] LABS: Free T3 2.1 pg/mL (2.5-4.3)
== END 2024-03-16 12:22 | disposition home or self-care (01) ==
LOC: NPINS 12:21
PROVIDERS: Visit Provider Family Medicine
DX: E03.9 Hypothyroidism, unspecified (principal)
CPT/HCPCS: 84439; 84443; 84481

== ENCOUNTER 2024-04-18 10:56 | Outpatient (CLI) | payer BC, SELFPAY | END 2024-04-18 10:57 | disposition home or self-care (01) | LOC: NFLDREF 04-21 10:19 | DX: N39.0 Urinary tract infection, site not specified (principal) | CPT/HCPCS: 87086; 87186 ==

== ENCOUNTER 2024-07-27 14:03 | Outpatient (CLI) | payer BC, SELFPAY ==
[2024-07-27 17:57] LABS: Free T4 Free Thyroxine* 0.77 ng/dL (0.70-1.85)
[2024-07-29 16:31] LABS: Total T3 73 ng/dL (80-200)
== END 2024-07-27 14:04 | disposition home or self-care (01) ==
LOC: NPINS 14:04
PROVIDERS: Visit Provider Student in an Organized Health Care Education/Training Program
DX: E03.9 Hypothyroidism, unspecified (principal)
CPT/HCPCS: 84439; 84443; 84480

== ENCOUNTER 2024-08-08 10:57 | Emergency (ER) | payer BC, SELFPAY ==
--- OUTSIDE RECORDS SUMMARY | 2024-08-08 11:00 | XMS_ITS | Encounter Summary ---
Author Organization [place] Address [facility] [place] [address] Care Team Providers Care Polishing Machine Operator Name Role Phone Sanjuana Ambrocio PA-C Primary Care Provide r Isabelle Dumont MD Unavailable [phone] Isabelle Duomnt MD Unavailable [phone] Lexi Low Unavailable [phone] Reason for Referral * Consultation (Routine) - Pending Review Specialty Diagnoses / Procedures Referred By Contac t Referred To Contact Cardiovascular Disease Diagnoses Heart palpitations Isabelle Dumont MD [address] [place] [address] Phone: tel: fax: Referral ID Status Reason Start Date Expiration Date V isits Requested Visits Authorized [id number] Pending Review 07/20/2024 07/20/2025 1 1 Question Answer Follow-up with: Self Patient Scheduling Instructions: [facility] will call you to coordinate your care as prescribed by your provider. If you have concerns about scheduling, please call [phone]. Comments [facility] will call you to coordinate your care as prescribed by your provider. If you have concerns about scheduling, please call [phone]. Encounter Details Date Type Department Care Team (Latest Contact Info) Description 07/13/2024 MyC Medical Advice M [address] [place] [phone] Isabelle Dumont MD [address] [place] [address] Heart palpitations (Primary Dx) Social History Tobacco Use Types Packs/Day Years Used Date Smoking Tobacco: Never Smokeless Tobacco: Never Alcohol Use Standard Drinks/Week Comments Not Currently 0 (1 standard drink = 0.6 oz pur e alcohol) PHQ-2 Answer Date Recorded PHQ-2 Score 0 05/05/2024 [place] Depression Scale Answer Date Recorded Last EPDS [...] Care Team (Late st Contact Info) Description 08/24/2024 8:20 AM CDT Office Visit [address] [place] [phone] Isabelle Dumont MD [address] [place] [address] Scheduled Referrals Name Type Priority Associated Diagnoses Orde r Schedule Follow-Up with Cardiology Referral Routine: Next available opening Heart palpitations Expected: 07/20/2024 (Approximate), Expires: 07/20/2025 documented as of this encounter Visit Diagnoses Diagnosis Heart palpitations- Primary Palpitations documented in this encounter Care Teams Polishing Machine Operator Relationship Specialty Start Date End Date Sanjuana Ambrocio PA-C [facility] [address] [place] [address] PCP - General director multiple sclerosis center 09/11/23 Isabelle Dumont MD [address] [place] [address] Interventional Cardiology 04/23/24 Isabelle Dumont MD [address] [place] [address] Assigned Heart and Vascular Provider 05/14/24 Lexi Low MBBS [address] [place] [address] [address] [place] [address] Assigned Endocrinology Provider 05/14/24 documented as of this encounter
--- OUTSIDE RECORDS SUMMARY | 2024-08-08 11:00 | XMS_ITS | Clinical Summary ---
Author Organization [facility] Address [address] [place] [address] Care Team Providers Care Assistant Professor Of Criminal Justice Name Role Phone Dagoberto Hernández M.D. Primary Care Provider [phone] Source Comments Patient records contain information from all sites at [facility]. For routine questions regarding patient records, call [phone] during business hours, M-F 8:00 AM - 5:00 PM Central Time. Record requests for emergency care only can be directed to [phone] at any time.[facility] Allergies No known active allergies Medications * This document contains information received from the source organization and may not represent a complete record from that organization. ibuprofen (ADVIL,MOTRIN) 800 mg tablet Take 800 mg by mouth. 8 Active CLASS C TRUCK DRIVER THYROID 120 mg tablet Take 1 tablet (120 mg total) by mouth daily. 90 tablet 3 9 Active medroxyPROGESTE Karlo (PROVERA) 10 mg tablet 0 Active multivitamin (Multiple Vitamins) tablet Take 1 tablet by mouth daily. Active thyroid, pork, ([place] Thyroid) 120 mg tablet Take 120 mg by mouth. Active estradioL (ESTRACE) 0.1 mg/g (0.01%) vaginal creamIndication s:Atrophy Vagina Due To Estrogen Deficiency Insert 1 g into the vagina as directed. Insert 1 gram vaginally at bedtime on MWF. 42.5 g 3 3 Active cholecalciferol , vitamin D3, 25 mcg (1,000 Unit) tablet Take 1 tablet by mouth daily. Active [place] Thyroid 30 mg tablet 3 Active Active Problems Problem Noted Date Diagnosed Date Hypothyroidism 09/04/2019 Encounters Date Type Department Care Team Description 06/23/2024 Orders Only [facility] MNT Dagoberto Hernández M.D. Screening Lipid 06/12/2024 Clinical Communication Department of Family Medicine, [facility], in [address] [phone] Dagoberto Hernández M.D. Health Maintenance from Last 3 Months Social History Tobacco [...] test for thyroid function 06/16/2022 06/16/2021, 09/04/2019, 08/11/2018, Additional history exists COVID-19 Vaccine ( - 2023- season) 2023 Influenza Vaccine (#1) 2024 Depression Screening (Annual PHQ-2) 04/22/2024 HPV Vaccines Aged Out No longer eligi ble based on patient's age to complete this topic IPV Vaccines Aged Out No longer eligi ble based on patient's age to complete this topic Pneumococcal vaccine (0-49 years) Aged Out No longer eligible based on patient's age to complete this topic Procedures Procedure Name Priority Date/Time Associated Diagnosis Comments THYROID-STIMULATING HORMONE-SENSITIVE (S-TSH) Routine 06/16/2021 3:42 PM INFORMATION DIRECTOR Hypothyroidism from Last 3 Months or Most Recently Relevant to Health Maintenance Results * S-TSH (Thyroid-Stimulating Hormone - Sensitive) (06/16/2021 3:42 PM INFORMATION DIRECTOR) TSH, Sensitive 0.3 0.3 - 4.2 mIU/L 06/16/2021 4:38 PM INFORMATION DIRECTOR CNFL Blood (Blood, Venous) 06/16/2021 3:42 PM INFORMATION DIRECTOR 06/16/2021 3:44 PM INFORMATION DIRECTOR us Dagoberto Hernández M.D. LAB BLOOD ADD-ON Final Re sult [facility] [address] [place] [address], [facility] CNFL [facility] in [address] [address] from Last 3 Months or Most Recently Relevant to Health Maintenance Insurance [facility] [place] [address] Care Teams Assistant Professor Of Criminal Justice Relationship Specialty Start Date End Date Dagoberto Hernández M.D. [address] [place] [phone] PCP - General Family Medicine 08/11/18
--- OUTSIDE RECORDS SUMMARY | 2024-08-08 11:00 | XMS_ITS | Encounter Summary ---
Author Organization [facility] Address [address] [place] [address] Care Team Providers Care Senior Data Architect Name Role Phone Sanjuana Ambrocio PA-C Primary Care Provide r Isabelle Dumont MD Unavailable [phone] Isabelle Dumont MD Unavailable [phone] Lexi Low Unavailable [phone] Reason for Visit * Reason Comments RECHECK Encounter Details Date Type Department Care Team (Late st Contact Info) Description 08/04/2024 1:30 PM CDT Virtual Visit [facility] [place] [address] [facility] 3rd [place] [address] Lexi Low MBBS [address] [facility] [address] [place], [place] [phone] Hypothyroidism, unspecified type (Primary Dx); Chronic fatigue Social History Tobacco Use Types Packs/Day Years Used Date Smoking Tobacco: Never Smokeless Tobacco: Never Alcohol Use Standard Drinks/Week Comments Not Currently 0 (1 standard drink = 0.6 oz pur e alcohol) PHQ-2 Answer Date Recorded PHQ-2 Score 0 08/04/2024 [place] Depression Scale Answer Date Recorded Last EPDS [...] on file documented as of this encounter Patient Instructions * Patient Instructions* Lexi Low MBBS - 08/04/2024 1:30 PM CDT - To change levothyroxine to 125 mcg and continue cytomel 5 mcg daily - To get lab test after three months before the visit - To get morning labs at 08:00 am for rechecking the cortisol and ACTH documented in this encounter Progress Notes * Lexi Low MBBS - 08/04/2024 1:30 PM CDT Endocrinology Clinic Visit 08/04/2024 Video-Visit Details Type of service: Video Visit Video Start Time (time video started): 1:43 PM Video End Time (time video stopped): 1:55 PM Originating Location (pt. Location): Home Distant Location (provider location): Off-site Mode of Communication: Video Conference via [facility] Physician has received verbal consent for a Video Visit from the patient? Yes I spent a total of 28 minutes on the date of encounter reviewing medical records, evaluating the patient, coordinating care and documenting in the EHR, as detailed above. The longitudinal plan of care for the diagnosis(es)/condition(s) as documented were addressed during this visit. Due to the added complexity in care, I will continue to support Pam in the subsequent management and with ongoing continuity of care. NAME: Pam Muro PCP: Sanjuana Ambrocio Reason for Consult: Follow-up for history of hypothyroidism. Requesting Provider: Lexi Low Chief Complaint Chief Complaint Patient presents with RECHECK History of Present Illness Pam Muro is a 43 year old female who is seen in video visit for follow- up for history of hypothyroidism. Last visit was on 05/05/2024. She has background history of -induced hypertension, hyponatremia hypothyroidism and history of severe preeclampsia s/p hysterectomy in August 2022 due to bleeding. History of hypothyroidism: She was diagnosed with hypothyroidism at age of [age] years old , after the diagnosis started on levothyroxine and continued with it until 2002 and switched to Armor thyroid throughout her pregnancies until 2 years ago she had the last daughter then started to have menorrhagia had hysterectomy done , after that started to have high T3 while on Armor thyroid and started to get palpitation then the dose was lowered and then test showed was too low then the dose was increased but developed recurrenceof palpitation then switched to levothyroxine in the last fall. At the switch started on levothyroxine 100 mcg then developed hyupothyroid symptoms then the dose was increased to 112 mcg and started on Cytomel 5 mcg once daily in 03/18/2024 She takes levothyroxine properly. Takes vitamin D vitamin C and biotin powder, takes it after at least 4 hours after taking levothyroxine In the first visit she stated She has ongoing fatigue usually start after in the day after 3 pm hadit ongoing since she had hysterectomy no recent change, lately started to develop cold intolerance,has ongoing constipation, also struggling with weight loss , no muscle weakness, has ongoing hair loss , no excessive dryness but has some dryness. On the last visit on 05/05/2024: Was switched from liothyronine 5 mcg daily to liothyronine 2.5 mcg twice daily given she was complaining of losing energy with the progression of the day. And she was continued on levothyroxine 112 mcg daily. Interval change in the symptoms:no change in the symptoms since the last visit , continues to have fatigue with the progression of the day. Palpitation improved significantly after she stopped Armor thyroid but still gets it at rest occasionally,no heat intolerance no excessive sweating , no tremor. She had previously normal TFTs up to March 2013: 04/08/2013: Free T40.9, TSH 2.41. 08/10/2013: TSH was low 0.14, free T4 was 0.8. 03/03/2014: TSH normal 1.86, free T4 was normal 0.7. 07/07/2014: TSH was low 0.08, 11/03/2049: Free T40.7, TSH 0.77. 03/01/2015 TSH was low 0.11, free T4 was 0.8. 05/24/2015 TSH was normal at 3.41, free T4 was normal 0.7. 08/14/2017 TSH was high 9.56. 01/02/2018: TSH normal 1.27, free T4 normal 0.7. 08/11/2018: TSH was normal at 0.5. 09/03/2021: TSH was normal at 3.7. 06/16/2021: TSH normal 3.7, free T4 normal 1.0. 04/27/2024: Free T4 normal 1.2, free T3 normal 3.2, TSH normal 2.5. 05/11/2024: At 8:30 AM cortisol 11.5, ACTH 12, 07/27/2024: [facility] at [facility] TSH 3.8 (0.27-4.0), free T4 0.77 (0.7-1.85) Problem List Patient Active Problem List Diagnosis PIH ( induced hypertension), antepartum Iron deficiency anemia, unspecified Status post Delivery with history of , 30 wks gestation PIH ( induced hypertension) Hyponatremia Anemia due to blood loss, acute Hypothyroidism Pre-eclampsia, severe Vaginal bleeding Medications Current Outpatient Medications Medication Sig Dispense Refill levothyroxine (SYNTHROID/LEVOTHROID) 125 MCG tablet Take 1 tablet (125 mcg) by mouth daily. 90 tablet 3 liothyronine (CYTOMEL) 5 MCG tablet Take 1 tablet (5 mcg) by mouth daily. 90 tablet 3 progesterone (PROMETRIUM) 200 MG capsule Vitamin D3 (CHOLECALCIFEROL) 25 mcg (1000 units) tablet Take 1 tablet by mouth daily No current facility-administered medications for this visit. Allergies No Known Allergies Medical / Surgical History Past Medical History: Diagnosis Date Complication of anesthesia takes a long time to come out of it Delivery with history of 04/21/2020 Disease of thyroid gland History of blood transfusion Hypertension Past Surgical History: Procedure Laterality Date C/SECTION, LOW TRANSVERSE SECTION N/A 04/07/2018 Procedure: SECTION; Surgeon: Luan Inman MD; [facility]; Service: Obstetrics SECTION N/A 04/19/2020 Procedure: SECTION; Surgeon: uLan Inman MD; Location: [facility] OR; Service: Obstetrics SECTION N/A 01/18/2022 Procedure: SECTION; Surgeon: Matheus Gordillo MD; Location: [facility] OR DILATION AND CURETTAGE DILATION AND CURETTAGE, OPERATIVE HYSTEROSCOPY, COMBINED N/A 08/03/2022 Procedure: HYSTEROSCOPY DILATION AND CURETTAGE WITH SUCTION; Surgeon: Georgia Parks MD; Location: [facility] OR HYSTERECTOMY VAGINAL Bilateral 08/23/2022 Procedure: HYSTERECTOMY, VAGINAL.; Surgeon: Matheus Gordillo MD; Location: [facility] OR LAPAROSCOPY DIAGNOSTIC (STRAIGHT TRUCK DRIVER) N/A 08/23/2022 Procedure: LAPAROSCOPY; Surgeon: Matheus Gordillo MD; Location: [facility] OR LAPAROSCOPY DIAGNOSTIC (STRAIGHT TRUCK DRIVER) N/A 08/23/2022 Procedure: LAPAROSCOPY; Surgeon: Matheus Gordillo MD; Location: [facility] OR wisdom teeth Social History Social History Socioeconomic History Marital status: Spouse name: Not on file Number of children: Not on file Years of education: Not on file Highest education level: Not on file Occupational History Not on file Tobacco Use Smoking status: Never Smokeless tobacco: Never Substance and Sexual Activity Alcohol use: Not Currently Drug use: Never Sexual activity: Yes Partners: Male Other Topics Concern Not on file Social History Narrative Not on file Social Drivers of Health Financial Resource Strain: Not on file Food Insecurity: Not on file Transportation Needs: Not on file Physical Activity: Not on file Stress: Not on file Social Connections: Not on file Interpersonal Safety: Not on file Housing Stability: Not on file Family History No family history on file. ROS 12 ROS completed, pertinent positive and negative in HPI Physical Exam There were no vitals taken for this visit. GENERAL: alert and no distress EYES: Eyes grossly normal to inspection. No discharge or erythema, or obvious scleral/conjunctival abnormalities. RESP: No audible wheeze, cough, or visible cyanosis. SKIN: Visible skin clear. No significant rash, abnormal pigmentation or lesions. NEURO: Cranial nerves grossly intact. Mentation and speech appropriate for age. PSYCH: Appropriate affect, tone, and pace of words Labs/Imaging Pertinent Labs were reviewed and discussed briefly. Radiology Results were reviewed and discussed briefly. Summary of recent findings: No results found for: A1C No results found for: TSH, T4 Creatinine Date Value Ref Range Status 08/23/2022 0.69 0.51 - 0.95 mg/dL Final No results for input(s): CHOL, HDL, LDL, TRIG, CHOLHDLRATIO in the last 50542 hours. No results found for: [id number], [id number], [id number] I personally reviewed the patient's outside records from [employer] EMR, Care Everywhere, and faxed records. Summary of pertinent findings in HPI. Impression / Plan 1. Hypothyroidism: Most recent TSH 3.8. Continues to be symptomatic. Plan: -Will aim for TSH at the lower half of the normal range and will keep assessing for resolution of symptoms. To increase levothyroxine dose to 125 mcg daily continue liothyronine 5 mcg daily. To get TFTs in 3 months. 2. Chronic fatigue: - To get repeat 8 a.m. cortisol and ACTH Test and/or medications prescribed today: Orders Placed This Encounter Procedures TSH T4 free Cortisol Adrenal corticotropin Follow up: 3 months with labs prior to the visit [facility] Endocrinology, Diabetes and Metabolism [facility] Note: Chart documentation done in part with [employer] Voice Recognition software. Although reviewed after completion, some word and grammatical errors may remain. Please consider this when interpreting information in this chart documented in this encounter Nursing Notes * Jazmin Adam - 08/04/2024 1:30 PM CDT Current patient location: [place] Is the patient currently in the state of [place]? YES Visit mode: VIDEO If the visit is dropped, the patient can be reconnected by:VIDEO VISIT: Text to cell phone: Telephone Information: Will anyone else be joining the visit? NO (If patient encounters technical issues they should call [phone]) Are changes needed to the allergy or medication list? No Are refills needed on medications prescribed by this physician? NO Rooming Documentation: Questionnaire(s) completed Reason for visit: RECHECK Jazmin Adam VVF documented in this encounter Plan of Treatment Upcoming Encounters Date Type Department Care Team (Late st Contact Info) Description 08/24/2024 8:20 AM CDT Office Visit [facility] [address] [facility] [address] [place] [phone] Isabelle Dumont MD [address] [place] [address] Scheduled Orders Name Type Priority Associated Diagnoses Orde r Schedule TSH Lab Routine Hypothyroidism, unspecified type Expected: 11/03/2024 (Approximate), Expires: 08/04/2025 T4 free Lab Routine Hypothyroidism, unspecified type Expected: 11/03/2024 (Approximate), Expires: 08/04/2025 Cortisol Lab Routine Chronic fatigue Expected: 08/04/2024 (Approximate), Expires: 08/04/2025 Adrenal corticotropin Lab Routine Chronic fatigue Expected: 08/04/2024 (Approximate), Expires: 08/04/2025 documented as of this encounter Visit Diagnoses Diagnosis Hypothyroidism, unspecified type- Primary Chronic fatigue Other malaise and fatigue documented in this encounter Care Teams Senior Data Architect Relationship Specialty Start Date End Date Sanjuana Ambrocio PA-C [facility] [address] [place] [address] PCP - General walking dragline operator 09/11/23 Isabelle Dumont MD [address] [place] [address] Interventional Cardiology 04/23/24 Isabelle Dumont MD [address] [place] [address] Assigned Heart and Vascular Provider 05/14/24 Lexi Low MBBS [address] [place] [address] Assigned Endocrinology Provider 05/14/24 documented as of this encounter
--- OUTSIDE RECORDS SUMMARY | 2024-08-08 11:00 | XMS_ITS | Clinical Summary ---
Author Organization [facility] Address [address] [place] [address] Care Team Providers Care Client Operations Manager Name Role Phone Sanjuana Ambrocio PA-C Primary Care Provide r Isabelle Dumont MD Unavailable [phone] Isabelle Dumont MD Unavailable [phone] Lexi Low Unavailable [phone] Allergies No known active allergies Medications Vitamin D3 (CHOLECALCIFERO L) 25 mcg (1000 units) tablet Take 1 tablet by mouth daily Active progesterone (PROMETRIUM) 200 MG capsule 04/07/20 24 Active liothyronine (CYTOMEL) 5 MCG tabletIndicatio ns:Hypothyroidi sm, unspecified type Take 1 tablet (5 mcg) by mouth daily. 90 tablet 3 08/05/19 25 Active levothyroxine (SYNTHROID/LEVO THROID) 125 MCG tabletIndicatio ns:Hypothyroidi sm, unspecified type Take 1 tablet (125 mcg) by mouth daily. 90 tablet 3 08/05/19 25 Active levothyroxine (SYNTHROID/LEVO THROID) 112 MCG tablet 04/19/20 24 025 Discontinued liothyronine (CYTOMEL) 5 MCG tablet Take 5 mcg by mouth daily. 025 Discontinued(Re order (No AVS)) Active Problems Problem Noted Date Diagnosed Date [...] Encounters Date Type Department Care Team Description 08/06/[address] [place] [address] [facility] Endocrinology [address] [phone] Paulino Franco 08/04/2024 1:30 PM CDT Virtual Visit [facility] Endocrinology [address] [phone] Lexi Low MBBS Hypothyroidism, unspecified type (Primary Dx); Chronic fatigue 07/20/[address] [place] [address] [facility] [address] [phone] Lexi Low MBBS 07/13/[address] [place] [address] [facility] Heart Care [address] [place] [phone] Isabelle Dumont MD Heart palpitations (Primary Dx) 05/14/[address] [facility] Endocrinology [address] [phone] Lexi Low MBBS Orders 05/11/2024 8:30 AM [facility] [address] [place] [address] Chronic fatigue 05/11/2024 Travel from Last 3 Months Social History Tobacco Use Types Packs/Day Years Used Date Smoking Tobacco: Never Smokeless Tobacco: Never Tobacco Cessation:Counseling Given: Not Answered Alcohol Use Standard Drinks/Week Comments Not Currently 0 (1 standard drink = 0.6 oz pur e alcohol) PHQ-2 Answer Date Recorded PHQ-2 Score 0 08/04/2024 [place] Depression Scale Answer Date Recorded Last EPDS [...] Sign Reading Time Taken Comments Blood Pressure 122/83 04/28/2024 3:55 PM [facility]ER Pulse 72 04/28/2024 3:55 PM [facility] Temperature 36.5 C (97.7 F) 10/25/2022 8:24 AM CDT Respiratory Rate 16 10/25/2022 8:24 AM CDT Oxygen Saturation 98% 04/28/2024 3:55 PM [facility] Inhaled Oxygen Concentration - - Weight 80.7 kg (178 lb) 04/28/2024 3:55 PM [facility] Height 160 cm (5' 3) 04/28/2024 3:55 PM [facility] Body Mass Index 31.53 04/28/2024 3:55 PM [facility] Plan of Treatment Upcoming Encounters Date Type Department Care Team (Late st Contact Info) Description 08/24/2024 8:20 AM CDT Office Visit [facility] [address] [place] [phone] Isabelle Dumont MD [address] [place], [place] [phone] Health Maintenance Due Date Last Done Comments ADVANCE CARE PLANNING 1981 ANNUAL REVIEW OF HM ORDERS 1981 MAMMO SCREENING 1981 YEARLY PREVENTIVE VISIT 1984 HEPATITIS C SCREENING 11/07/1999 HEPATITIS B IMMUNIZATION (1 of 3 - 19+ 3-dose series) 2000 DTAP/TDAP/TD IMMUNIZATION (1 - Tdap) 2006 LIPID 2021 PAP 10/28/2022 10/29/2019, 10/29/2019 COVID-19 Vaccine ( - season) 2023 INFLUENZA VACCINE (#1) 2023 TSH W/FREE T4 REFLEX 07/27/2025 07/27/2024 DIABETES SCREENING 08/24/2025 08/24/2022, 0 08/23/2022, 01/20/2022, Additional history exists ZOSTER IMMUNIZATION (1 of 2) 11/07/2031 HIV SCREENING Completed 08/07/2021, 08/07/2021 PHQ-2 (once per calendar year) Completed 08/04/2024, 05/05/2024, 04/28/2024 HPV IMMUNIZATION Aged Out No longer e ligible based on patient's age to complete this topic MENINGITIS IMMUNIZATION Aged Out No l onger eligible based on patient's age to complete this topic Pneumococcal Vaccine: Pediatrics (0 to 5 Years) and At-Risk Patients (6 to 49 Years) Aged Out No longer eligible based on patient's age to complete this topic Procedures Procedure Name Priority Date/Time Associated Diagnosis Comments THYROID STIMULATING HORMONE (TSH) (EXTERNAL RESULT) Routine 07/27/2024 2:05 PM CDT LAB RESULT - HIM SCAN 07/27/2024 12:00 AM CDT ZIO PATCH MAIL OUT Routine 06/03/2024 2: 11 PM [facility] Heart palpitations ADRENAL CORTICOTROPIN Routine 05/11/2024 8:33 AM [facility] Chronic fatigue CORTISOL Routine 05/11/2024 8:33 AM [facility] Chronic fatigue GLUCOSE BY METER Routine 08/24/2022 6:02 AM CDT HIV 1&2 ANTIBODY (EXTERNAL RESULT) Routine 08/07/2021 from Last 3 Months or Most Recently Relevant to Health Maintenance Results * Thyroid Stimulating Hormone (TSH) (External Result) (07/27/2024 2:05 PM CDT) TSH (External) 3.800 0.270 - 4.20 uIU/mL [facility] Blood 07/27/2024 2:05 PM CDT Narrative [facility] - 07/27/2024 2:05 PM CDT [facility]- External Lab Results us Provider Outside LAB - HIM EXTERNAL RESULT Final Result [facility] [address] [phone] * Lab Result - HIM Scan (07/27/2024 12:00 AM CDT) 07/27/2024 us Provider Outside NON-BEAKER LAB TESTING Final Result * ZIO PATCH MAIL OUT (06/03/2024 2:11 PM [facility]) [facility]io Prelim Results Patient had a min HR of 42 bpm, max HR of 140 bpm, and avg HR of 72 bpm. Predominant underlying rhythm was Sinus Rhythm. Isolated SVEs were rare (<1.0%), SVE Couplets were rare (<1.0%), and SVE Triplets were rare (<1.0%). Isolated VEs were rare (<1.0%), and no VE Couplets or VE Triplets were present. CARDIOLOGY RESULTS Anatomical Region Laterality Modality Other 06/03/2024 2:11 PM [facility] Narrative 06/03/2024 4:32 PM [facility] Zio monitoring from 05/06/2024 to 05/20/2024 (duration 14d). Predominant underlying rhythm was sinus rhythm, 42 to 140bpm, average 72bpm. No nonsustained or sustained tachyarrhythmias. No atrial fibrillation. There were no pauses of greater than 3 seconds. Rare supraventricular ectopic beats (<1%). Rare premature ventricular contractions (<1%). Symptom triggers correlated with sinus rhythm with rare PVCs. Electronically signed by Berto Morales MD 06/03/2024 4:31 PM Isabelle Dumont MD [facility] C[facility] ORDERABLES Final Result * Cortisol (05/11/2024 8:33 AM [facility]) Cortisol 11.5 ug/dL 05/11/2024 4:24 PM [facility] Comment: 6 months and older: 6 to 10 AM Cortisol Reference Range: 4-22 ug/dL 4 to 8 PM Cortisol Reference Range: 3-17 ug/dL Blood BLOOD SPECIMEN / Unknown Venipuncture / Unknown 05/11/2024 8:33 AM [facility] 05/11/2024 8:36 AM [facility] - BLOOD ORDERABLES Final Re sult [facility] [address] [facility], [address] * Adrenal corticotropin (05/11/2024 8:33 AM BARREL RAISER) Adrenal Corticotropin 12 <47 pg/mL 05/12/2024 11:58 AM [facility]/PROT/END O Blood BLOOD SPECIMEN / Unknown Venipuncture / Unknown 05/11/2024 8:33 AM [facility] 05/11/2024 8:36 AM [facility] Result [facility] LAB - BLOOD ORDERABLES Final Re sult [facility]/PROT/ENDO [facility]/Prot/Endo [address] [facility] [address], Room [address] * (ABNORMAL) Glucose by meter (08/24/2022 6:02 AM CDT) GLUCOSE BY METER POCT 127(H) 70 - 99 mg/dL 08/24/2022 6:09 AM CDT [facility] POCT RESULTS Blood, Capillary BLOOD SPECIMEN / Unknown 08/24/2022 6:02 AM CDT 08/24/2022 6:09 AM CDT us Matheus Gordillo MD LAB - BEAKER POCT Fi nal Result [facility] POCT RESULTS [address] [place] [address] * HIV-1 Antibody (External Result) (08/07/2021) HIV 1&2 Antibody (External) Nonreactive Nonreactive EXTERNAL LAB 08/07/2021 us Patient Reported LAB - HIM EXTERNAL RESULT Final Result EXTERNAL LAB External Lab from Last 3 Months or Most Recently Relevant to Health Maintenance Insurance [employer] Advance Directives For more information, please contact: [phone] * Full Code (Latest Code Status on [...] by: Other (please docslickn t) Care Teams Client Operations Manager Relationship Specialty Start Date End Date Sanjuana Ambrocio PA-C [facility] [address] [place] [address] PCP - General nylon operator 09/11/23 Isabelle Dumont MD [address] [place] [address] Interventional Cardiology 04/23/24 Isabelle Dumont MD [address] [place] [address] Assigned Heart and Vascular Provider 05/14/24 Lexi Low MBBS [address] [place] [address] Assigned Endocrinology Provider 05/14/24
--- OUTSIDE RECORDS SUMMARY | 2024-08-08 11:00 | XMS_ITS | Encounter Summary ---
Author Organization [facility] Address [address] [place] [address] Care Team Providers Care Lithographic Camera Operator Name Role Phone Sanjuana Ambrocio PA-C Primary Care Provide r Isabelle Dumont MD Unavailable [phone] Isabelle Dumont MD Unavailable [phone] Lexi Low Unavailable [phone] Encounter Details Date Type Department Care Team (Late st Contact Info) Description 07/20/2024 [place] Medical Advice [facility] End[facility]inology [facility] [place] [address] [facility] 3rd [place] [address] Lexi Low MBBS [address] [facility] [address] [place], [place] [address] Social History Tobacco Use Types Packs/Day Years Used Date Smoking Tobacco: Never Smokeless Tobacco: Never Alcohol Use Standard Drinks/Week Comments Not Currently 0 (1 standard drink = 0.6 oz pur e alcohol) PHQ-2 Answer Date Recorded PHQ-2 Score 0 05/05/2024 [place] Depression Scale Answer Date Recorded Last EPDS [...] Description 08/24/2024 8:20 AM CDT Office Visit [place] [id number] [facility] [address] [place] [address] Isabelle Dumont MD [address] [place] [address] documented as of this encounter Visit Diagnoses Not on filedocumented in this encounter Care Teams Lithographic Camera Operator Relationship Specialty Start Date End Date Sanjuana Ambrocio PA-C [facility] [address] [place] [address] PCP - General airport location manager 09/11/23 Isabelle Dumont MD [address] [place] [address] Interventional Cardiology 04/23/24 Isabelle Dumnot MD [address] [place] [address] Assigned Heart and Vascular Provider 05/14/24 Lexi Low MBBS [address] [place] [address] Assigned Endocrinology Provider 05/14/24 documented as of this encounter
--- OUTSIDE RECORDS SUMMARY | 2024-08-08 11:00 | XMS_ITS | Encounter Summary ---
Author Organization [facility] Address [address] [place] [address] Care Team Providers Care Reducing Salon Attendant Name Role Phone Sanjuana Ambrocio PA-C Primary Care Provide r Isabelle Dumont MD Unavailable [phone] Isabelle Dumont MD Unavailable [phone] Lexi Low Unavailable [phone] Reason for Visit * Reason Comments Video Visit Consult * Consultation (Routine) - Pending Review Specialty Diagnoses / Procedures Referred By Contac t Referred To Contact Endocrinology, Diabetes, and Metabolism Diagnoses Hypothyroidism GENERIC EXTERNAL DATA DEPARTMENT Referral ID Status Reason Start Date Expiration Date V isits Requested Visits Authorized [id number] Pending Review 09/10/2023 09/09/2024 1 1 Encounter Details Date Type Department Care Team (Late st Contact Info) Description 05/05/2024 11:00 AM ROTARY FILTER OPERATOR Virtual Visit [facility] [place] [address] [facility] 3rd [place] [address] Lexi Low MBBS [address] [facility] [address] [place], [place] [address] Chronic fatigue (Primary Dx); Hypothyroidism, unspecified type Social History Tobacco Use Types Packs/Day Years Used Date Smoking Tobacco: Never Smokeless Tobacco: Never Alcohol Use Standard Drinks/Week Comments Not Currently 0 (1 standard drink = 0.6 oz pur e alcohol) PHQ-2 Answer Date Recorded PHQ-2 Score 0 08/04/2024 Oxford Depression Scale Answer Date Recorded Last EPDS [...] * Patient Instructions* Lexi Low MBBS - 05/05/2024 11:00 AM ROTARY FILTER OPERATOR - To get lab test at 08:00 am - To continue with the current dose of levothyroxine 112 mcg and to change cytomel (liothyronine) to half tablet twice daily. - To get lab test in 3 months to check thyroid hormones do it 1-2 days before the visit. Imaging (DEXA, CT, MRI, XRAY) [facility] ([facility], [facility] [place]) [phone] [facility] ([place], [place]) [phone] [facility] ([facility]) [phone] [facility] ([facility]) [phone] Lab General [facility] [phone] [place] [phone] [facility] [phone] [facility] [phone] [place] [phone] [facility]) [phone] [facility] Walk-In Only [place] [phone] [place] [phone] [place] [phone] [place] [phone] Infusion [facility] [phone] [place] [phone] [place] [phone] [place] [phone] [place] [phone] [place] [phone] [facility] [phone] For any questions, please reach out to the Endocrinology Clinic Number for assistance: [phone]. RY FILTER OPERATOR documented in this encounter Progress Notes * Lexi Low MBBS - 05/05/2024 11:00 AM CST Endocrinology Clinic Visit 05/05/2024 Video-Visit Details Type of service: Video Visit Video Start Time (time video started): 11:05 AM Video End Time (time video stopped): 11:47 AM Originating Location (pt. Location): Home Distant Location (provider location): Off-site Mode of Communication: Video Conference via Travee Physician has received verbal consent for a Video Visit from the patient? Yes I spent a total of 78 minutes on the date of encounter reviewing [...] Muro PCP: Sanjuana Ambrocio Reason for Consult: Hypothyroidism Requesting Provider: Sanjuana Ambrocio Chief Complaint Chief Complaint Patient presents with Video Visit Consult History of Present Illness Pam Muro is a 43 year old female who is seen in video visit for hypothyroidism. She has background history of -induced hypertension, hyponatremia hypothyroidism and history of severe preeclampsia s/p hysterectomy in August 2022 due to bleeding.. She had previously normal TFTs up to [...] free T3 normal 3.2, TSH normal 2.5. She was diagnosed with hypothyroidism at age [...] Cytomel 5 mcg once daily in 03/18/2024 Currently she takes 112 mcg of levothyroxine +Cytomel 5 mcg daily. She takes levothyroxine properly. Takes vitamin D vitamin C and biotin powder, takes it after at least 4 hours after taking levothyroxine Has ongoing fatigue usually start after in the day after 3 pm had it ongoing since she had hysterectomy no recent change, lately started to develop cold intolerance, has ongoing constipation, also struggling with weight loss , no muscle weakness, has ongoing hair loss , no excessive dryness but hassome dryness. Palpitation improved significantly after she stopped Armor thyroid but still gets it at rest occasionally,no heat intolerance no excessive sweating , no tremor. Family history of thyroid disease: Mother : hypothyroidism and adrenal insufficiency , sisters x2 hypothyroidism , maternal grand mother : hypothyroidism, and two of her daughters with hypothyroidism Problem List Patient Active Problem List Diagnosis PIH ( induced hypertension), antepartum Iron deficiency anemia, unspecified Status post Delivery with history of , 30 wks gestation PIH ( induced hypertension) Hyponatremia Anemia due to blood loss, acute Hypothyroidism Pre-eclampsia, severe Vaginal bleeding Medications Current Outpatient Medications Medication Sig Dispense Refill levothyroxine (SYNTHROID/LEVOTHROID) 112 MCG tablet liothyronine (CYTOMEL) 5 MCG tablet progesterone (PROMETRIUM) 200 MG capsule Vitamin D3 [...] Procedure: SECTION; Surgeon: Luan Inman MD; Location: [facility] OR; Service: Obstetrics SECTION N/A 04/19/2020 Procedure: SECTION; Surgeon: Luan Inman MD; Location: [facility] OR; Service: Obstetrics SECTION N/A 01/18/2022 Procedure: SECTION; Surgeon: Matheus Gordillo MD; Location: [facility] DILATION AND CURETTAGE DILATION AND CURETTAGE, OPERATIVE HYSTEROSCOPY, COMBINED N/A 08/03/2022 Procedure: HYSTEROSCOPY DILATION AND CURETTAGE WITH SUCTION; Surgeon: Georgia Parks MD; Location: [facility] HYSTERECTOMY VAGINAL Bilateral 08/23/2022 Procedure: HYSTERECTOMY, VAGINAL.; Surgeon: Matheus Gordillo MD; Location: [facility] OR LAPAROSCOPY DIAGNOSTIC (PET GROOMER) N/A 08/23/2022 Procedure: LAPAROSCOPY; Surgeon: Matheus Gordillo MD; Location: [facility] OR LAPAROSCOPY DIAGNOSTIC (PET GROOMER) N/A 08/23/2022 Procedure: LAPAROSCOPY; Surgeon: Matheus Gordillo MD; Location: [facility] OR wisdom teeth Social History Social History [...] HDL, LDL, TRIG, CHOLHDLRATIO in the last [id number] hours. No results found for: [id number], [id number], [id number] I personally reviewed the patient's outside records from [employer] EMR, Care Everywhere, and faxed records. Summary of pertinent findings in HPI. Impression / Plan 1. Hypothyroidism: Known history of hypothyroidism since age of [age] years old. She was on Crawford Thyroid for years however started to develop's symptoms of hyperthyroidism after that the dose was reduced developed hypothyroidism then taken off Crawford Thyroid and placed on levothyroxine and later on liothyronine was added.. Currently she is on levothyroxine 112 mcg daily and she takes as well Cytomel 5 mcg daily. Most recent TFTs on 04/27/2024 free T4, free T3, TSH within normal range. She has ongoing fatigue and cold intolerance as well as constipation with no interval change after switching to levothyroxine and liothyronine. Plan: -To switch from taking Cytomel 5 mcg once a day in the morning to take it 2.5 mcg twice daily. -Continue with levothyroxine 112 mcg daily. -To get repeat TFTs prior to the next visit in 3 months. 2. History of fatigue: Ongoing fatigue for years. No change with changing treatment for hypothyroidism. She has family history of primary AI. Plan: -To get morning cortisol/ACTH. Test and/or medications prescribed today: Orders Placed This Encounter Procedures Cortisol Adrenal corticotropin TSH T4 free T3 total Follow up: 3 months with labs [facility] Endocrinology, Diabetes and Metabolism [facility] Note: Chart documentation done in part with eXelate Voice Recognition software. Although reviewed after completion, some word and grammatical errors may remain. Please consider this when interpreting information in this chart RY FILTER OPERATOR documented in this encounter Nursing Notes * Jazmin Pastrana - 05/05/2024 11:00 AM CST Current patient location: [place] Is the patient currently in the state of [place]? YES Visit mode: VIDEO If the visit is dropped, the patient can be reconnected by:VIDEO VISIT: Text to cell phone: Telephone Information: Will anyone else be joining the visit? NO (If patient encounters technical issues they should call [phone]) Are changes needed to the allergy or medication list? No Are refills needed on medications prescribed by this physician? NO Rooming Documentation: Questionnaire(s) completed Reason for visit: Video Visit and Consult Jazmin Pastrana VVF RY FILTER OPERATOR documented in this encounter Plan of Treatment Upcoming Encounters Date Type Department Care Team (Late st Contact Info) Description 08/24/2024 8:20 AM CDT Office Visit [facility] [address] [facility] [address] [place] [phone] Isabelle Dumont MD [address] [place] [address] Scheduled Orders Name Type Priority Associated Diagnoses Orde r Schedule TSH Lab Routine Hypothyroidism, unspecified type Expected: 08/03/2024 (Approximate), Expires: 05/05/2025 T4 free Lab Routine Hypothyroidism, unspecified type Expected: 08/03/2024 (Approximate), Expires: 05/05/2025 T3 total Lab Routine Hypothyroidism, unspecified type Expected: 08/03/2024 (Approximate), Expires: 05/05/2025 documented as of this encounter Results * Adrenal corticotropin (05/11/2024 8:33 AM ROTARY FILTER OPERATOR) Adrenal Corticotropin 12 <47 pg/mL 05/12/2024 11:58 AM ROTARY FILTER OPERATOR SPECIALTY CORE/PROT/END O Blood BLOOD SPECIMEN / Unknown Venipuncture / Unknown 05/11/2024 8:33 AM ROTARY FILTER OPERATOR 05/11/2024 8:36 AM ROTARY FILTER OPERATOR Lexi BERNARDO LAB - BLOOD ORDERABLES Final Re sult Performing Organization Address City/[facility]/ZIP Co de Phone Number SPECIALTY CORE/PROT/ENDO Specialty Core/Prot/Endo [address] [facility], [address] * Cortisol (05/11/2024 8:33 AM ROTARY FILTER OPERATOR) Cortisol 11.5 ug/dL 05/11/2024 4:24 PM ROTARY FILTER OPERATOR [facility] Comment: 6 months and older: 6 to 10 AM Cortisol Reference Range: 4-22 ug/dL 4 to 8 PM Cortisol Reference Range: 3-17 ug/dL Blood BLOOD SPECIMEN / Unknown Venipuncture / Unknown 05/11/2024 8:33 AM ROTARY FILTER OPERATOR 05/11/2024 8:36 AM ROTARY FILTER OPERATOR Lexi BERNARDO LAB - BLOOD ORDERABLES Final Re sult [facility] [place] [facility] [address] [facility] [place], [address] documented in this encounter Visit Diagnoses Diagnosis Chronic fatigue- Primary Other malaise and fatigue Hypothyroidism, unspecified type documented in this encounter Care Teams Reducing Salon Attendant Relationship Specialty Start Date End Date Sanjuana Ambrocio PA-C [facility] [address] [place] [address] PCP - General tomato grader 09/11/23 Isabelle Dumont MD [address] [place] [address] Interventional Cardiology 04/23/24 Isabelle Dumont MD [address] [place] [address] Assigned Heart and Vascular Provider 05/14/24 Lexi Low MBBS [address] [place] [address] [address] [place] [address] Assigned Endocrinology Provider 05/14/24 documented as of this encounter
--- OUTSIDE RECORDS SUMMARY | 2024-08-08 11:00 | XMS_ITS | Encounter Summary ---
Author Organization [facility] Address [address] [place] [address] Care Team Providers Care Underwater Photographer Name Role Phone Sanjuana Ambrocio PA-C Primary Care Provide r Isabelle Dumont MD Unavailable [phone] Isabelle Dumont MD Unavailable [phone] Lexi Low Unavailable [phone] Encounter Details Date Type Department Care Team (Late st Contact Info) Description 04/28/2024 [facility] [place] [address] [facility] [address] [place] [address] Reported, Patient Social History Tobacco Use Types Packs/Day Years Used Date Smoking Tobacco: Never Smokeless Tobacco: Never Alcohol Use Standard Drinks/Week Comments Not Currently 0 (1 standard drink = 0.6 oz pur e alcohol) PHQ-2 Answer Date Recorded PHQ-2 Score 0 04/28/2024 Newcomb Depression Scale Answer Date Recorded Last EPDS [...] Description 08/24/2024 8:20 AM CDT Office Visit [facility] [address] [facility] [address] [place] [address] Isabelle Dumont MD [address] [place] [address] documented as of this encounter Procedures Procedure Name Priority Date/Time Associated Diagnosis Comments LAB RESULT - HIM SCAN Routine 04/07/2024 10:28 AM VISUAL JOURNALIST documented in this encounter Results * Lab Result - HIM Scan (04/07/2024 10:28 AM VISUAL JOURNALIST) us Patient Reported [facility] NON-BEAKER LAB TESTING Final Result documented in this encounter Visit Diagnoses Not on filedocumented in this encounter Care Teams Underwater Photographer Relationship Specialty Start Date End Date Sanjuana Ambrocio PA-C [facility] [address] [place] [address] PCP - General garland machine operator 09/11/23 Isabelle Dumont MD [address] [place] [address] Interventional Cardiology 04/23/24 Isabelle Dumont MD [address] [place] [address] Assigned Heart and Vascular Provider 05/14/24 Lexi Low MBBS [address] [place] [address], [facility] [address] [place] [address] Assigned Endocrinology Provider 05/14/24 documented as of this encounter
--- OUTSIDE RECORDS SUMMARY | 2024-08-08 11:00 | XMS_ITS | Data Portability ---
Author Organization [facility] [employer] [employer], [id number] Address [address] [place] [id number] Assessment Encounter Date Assessment Date Assessment LastModified by Organization Details LastModified Time 04/11/2020 04/11/2020 This service was provided using telemedicine including synchronous audio and/or video approved technology. The patient verbally to telemedicine services, virtual check-ins and evisits. Start Time: End Time: Telemedicine consultation via Synchronous Audio and Video Call . Assessment and Plan for this visit include the following: [email or web address] Not available 04/11/2020 15:55:42 Plan of Treatment Reminders Order Date Submit Date Provider Last Modified By Organization Details Last Modified Time Details Appointments None recorded. Lab None recorded. Referral None recorded. Procedures None recorded. Surgeries None recorded. Imaging US, obstetric, biophysical profile [id number] [email or web address] jose elias, [address] [place] [address], [id number], 0 11:52:38 Medication Orders None recorded. Patient TargetsNo targets recorded. Patient Instructions Encounter Date Encounter Id Patient Instructions Last Modified By Organization Details Last Modified Time 04/11/2020 [id number] Doing well. Questions answered. Not available 04/04/2020 17:28:55 04/19/2020 [id number] Not available 04/19 09:55:14 Doing well. Questions answered. Not available 04/19/2020 09:55:19 05/02/2020 [id number] - You can use vitamin E oil or coconut oil on incision. Not available 04/25/2020 13:57:26 - Reviewed post-op incision care. We discussed post-op exercise and restrictions. She may resume light activity. Not available 04/25/2020 13:57:29 05/30/2020 [id number] - Discussed returning to normal activities including exercise and intercourse. Recommend continuing vitamin until cessation of breast feeding. Reviewed when to expect menses. Still bleeding. US 1 mo if not resolved [email or web address] Not available 05/30/2020 14:41:52 Reason for Referral None Reported. Results Created Date Observation Date Name Description Value Unit Range Abnormal Flag Note LastModifiedBy Organization Detail LastModifiedTime 03/28/20 20 03/28/2020 CBC w/ diff WBC 10.8 K/uL 4.3-10 .8 Not Available [facility] Lab [address] [place], [address], 03/28/2020 22:56:19 03/28/20 20 03/28/2020 CBC w/ diff RBC 4.08 M/uL 4.20-5 .40 low Not Available [facility] Lab [address] [place], [address], 03/28/2020 22:56:19 03/28/20 20 03/28/2020 CBC w/ diff hemoglobin 11.1 gm/dL 12.0-1 6.0 low Not Available [facility] [address] [place], [address], 03/28/2020 22:56:19 03/28/20 20 03/28/2020 CBC w/ diff hematocrit 35.0 % 36.0-4 8.0 low Not Available [facility] Lab [address] [place], [address], 03/28/2020 22:56:19 03/28/20 20 03/28/2020 CBC w/ diff MCV 86 fL 80-100 Not Available [facility] Lab [address] [place], [address], 03/28/2020 22:56:19 03/28/20 20 03/28/2020 CBC w/ diff MCH 27 pg 27-33 Not Available [facility] [address] [place], [address], 03/28/2020 22:56:19 03/28/20 20 03/28/2020 CBC w/ diff MCHC 32 gm/dL 33-36 low Not Available [facility] Lab [address] [place], [address], 03/28/2020 22:56:19 03/28/20 20 03/28/2020 CBC w/ diff RDW 13.9 % 11.5-1 4.5 Not Available [facility] [address] [place], [address], 03/28/2020 22:56:19 03/28/20 20 03/28/2020 CBC w/ diff platelet count 226 K/uL 150-40 0 Not Available [facility] [address] [place], [address], 03/28/2020 22:56:19 03/28/20 20 03/28/2020 CBC w/ diff MPV 10.5 6.5-12 Not Available [facility] [address] [place], [address], 03/28/2020 22:56:19 03/28/20 20 03/28/2020 CBC w/ diff PMN % 73.7 % Not Available [facility] [address] [place], [address], 03/28/2020 22:56:19 03/28/20 20 03/28/2020 CBC w/ diff Ig% 1.3 % <=1.0 high Immat ure granu locyt es often indic ate left shift when outsi de of escobar l limit s. Not Available [facility] [address] [place], [address], 03/28/2020 22:56:19 03/28/20 20 03/28/2020 CBC w/ diff lymph % 15.4 % Not Available [facility] [address] [place], [address], 03/28/2020 22:56:19 03/28/20 20 03/28/2020 CBC w/ diff mono % 7.9 % Not Available [facility] [address] [place], [address], 03/28/2020 22:56:19 03/28/20 20 03/28/2020 CBC w/ diff eos % 1.0 % Not Available [facility] [address] [place], [address], 03/28/2020 22:56:19 03/28/20 20 03/28/2020 CBC w/ diff baso % 0.7 % Not Available [facility] [address] [place], [address], 03/28/2020 22:56:19 03/28/20 20 03/28/2020 CBC w/ diff PMN absolute 7.93 K/uL 1.80-7 .80 high Not Available [facility] [address] [place], [address], 03/28/2020 22:56:19 03/28/20 20 03/28/2020 CBC w/ diff Ig absolute 0.14 K/uL Not Available [facility] [address] [place], [address], 03/28/2020 22:56:19 03/28/20 20 03/28/2020 CBC w/ diff lymph absolute 1.66 K/uL 1.00-4 .00 Not Available [facility] [address] [place], [address], 03/28/2020 22:56:19 03/28/20 20 03/28/2020 CBC w/ diff mono absolute 0.85 K/uL 0.00-1 .00 Not Available [facility] [address], [address], 03/28/2020 22:56:19 03/28/20 20 03/28/2020 CBC w/ diff eos absolute 0.11 K/uL 0.00-0 .45 Not Available [facility] [address], [address], 03/28/2020 22:56:19 03/28/20 20 03/28/2020 CBC w/ diff baso absolute 0.07 K/uL 0.00-0 .20 Not Available [facility] [place], [address], 03/28/2020 22:56:19 03/28/20 20 03/28/2020 CBC w/ diff nucl RBC % 0.0 /100_ WBC 0.0-0. 0 Not Available [facility] [place], [address], 03/28/2020 22:56:19 03/28/20 20 03/28/2020 CBC w/ diff nucl RBC absolute 0.00 K/uL 0.00-0 .00 Not Available [facility] [place], [address], 03/28/2020 22:56:19 03/28/20 20 03/28/2020 uric acid, serum or plasm a uric acid 3.8 mg/dL 2.6-6. 0 Not Available [facility] [address] [place], [address], 03/28/2020 22:56:20 03/28/20 20 03/28/2020 CMP, serum or plasm a sodium 139 mmol/ L 136-14 5 Not Available [facility] [address], [address], 03/28/2020 22:56:20 03/28/20 20 03/28/2020 CMP, serum or plasm a potassium 3.7 mmol/ L 3.5-5. 1 Not Available [facility] [address] [place], [address], 03/28/2020 22:56:20 03/28/20 20 03/28/2020 CMP, serum or plasm a chloride 108 mmol/ L 98-112 Not Available [facility] [address] [place], [address], 03/28/2020 22:56:20 03/28/20 20 03/28/2020 CMP, serum or plasm a carbon dioxide 24 mmol/ L 21-32 Not Available [facility] [address] [place], [address], 03/28/2020 22:56:20 03/28/20 20 03/28/2020 CMP, serum or plasm a BUN (urea nitro) 4 mg/dL 7-24 low Not Available [facility] [address] [place], [address], 03/28/2020 22:56:20 03/28/20 20 03/28/2020 CMP, serum or plasm a creatinine 0.39 mg/dL 0.55-1 .02 low Not Available [facility] [address] [place], [address], 03/28/2020 22:56:20 03/28/20 20 03/28/2020 CMP, serum or plasm a est GFR (CKD-epi) >60 mL/mi n >60 Not Available [facility] [address] [place], [address], 03/28/2020 22:56:20 03/28/20 20 03/28/2020 CMP, serum or plasm a est GFR if AM >60 mL/mi n >60 Not Available [facility] [address] [place], [address], 03/28/2020 22:56:20 03/28/20 20 03/28/2020 CMP, serum or plasm a glucose 83 mg/dL 74-106 Not Available [facility] [place], [address], 03/28/2020 22:56:20 03/28/20 20 03/28/2020 CMP, serum or plasm a calcium, serum 8.9 mg/dL 8.5-10 .1 Not Available [place] [address] [place], [address], 03/28/2020 22:56:20 03/28/20 20 03/28/2020 CMP, serum or plasm a anion gap 7.0 mmol/ L 0.0-15 .0 Not Available [facility] [address] [place], [address], 03/28/2020 22:56:20 03/28/20 20 03/28/2020 CMP, serum or plasm a albumin 2.8 g/dL 3.4-5. 0 low Not Available [facility] [address] [place], [address], 03/28/2020 22:56:20 03/28/20 20 03/28/2020 CMP, serum or plasm a bilirubin-to mel 0.3 mg/dL 0.2-1. 0 Not Available [facility] [address] [place], [address], 03/28/2020 22:56:20 03/28/20 20 03/28/2020 CMP, serum or plasm a alkaline P'tase 109 IU/L 45-117 Not Available [facility] [address] [place], [address], 03/28/2020 22:56:20 03/28/20 20 03/28/2020 CMP, serum or plasm a protein total 6.3 g/dL 6.4-8. 2 low Not Available [facility] [address] [place], [address], 03/28/2020 22:56:20 03/28/20 20 03/28/2020 CMP, serum or plasm a AST (SGOT) 8 IU/L 12-37 low Not Available [facility] [address], [address], 03/28/2020 22:56:20 03/28/20 20 03/28/2020 CMP, serum or plasm a ALT (SGPT) 11 IU/L 12-68 low Not Available [facility] [address], [address], 03/28/2020 22:56:20 07/16/19 21 07/15/2020 T4, free, serum T4 free 0.71 NG/dL 0.76-1 .46 low Not Available [facility] [address], [address], 07/15/2020 23:20:22 07/16/19 21 07/15/2020 thyro tropi n, quant , blood TSH 0.416 uIU/m L 0.358- 3.740 Not Available [facility] [address] [place], [address], 07/15/2020 23:20:22 07/16/19 21 07/15/2020 T3, free, serum or plasm a T3 free 4.21 pg/mL 2.18-3 .98 high Not Available [facility] [address] [place], [address], 07/15/2020 23:20:22 07/16/19 21 07/15/2020 thyro id perox idase (tpo) Ab, serum thyroperoxid ase antibody 450 units /mL <=60 high Not Available [facility] [address] [place], [address], 07/15/2020 23:20:23 03/28/20 US, obste tric, bioph ysica l profi le No observ ation record ed. [email or web address] [address], [place], [address], 03/28/2020 15:00:47 04/19/20 US, obste tric, bioph ysica l profi le No observ ation record ed. [email or web address] [address], [place], [address], 04/19/2020 11:57:42 Result Notes None recorded. Problems Name Problem SNOMED Code Status Onset Date Resolution Date Notes Provider Name and Address Organization Details Recorded Time 79686802 Completed 201904/25/2020 Wade Lena (TERMED) null, [place] [facility] 13:53:10 COVID-19 903823083 Completed 201904/10/2020 Wade Lena (TERMED) [place], [place] [facility] 11:29:56 Problem Notes None recorded. Procedures Surgical History Date Name Laterality Status Provider Name and Address Organization Details Recorded Time 1 Suture / Staple Removal Procedure Note ([facility]) completed Wade Lena (TERMED) [place] [facility] 04/25/2020 13:56:23 0 section completed Wade Lena (TERMED[place] [facility] 05/27/2020 11:40:14 0 Date of Last Pap Smear completed Wade Lena (TERMED) [place] [facility] 05/27/2020 11:30:31 section completed Not Available [facility] 11/26/2019 05:09:11 Imaging Results Imaging Date Name Status LastModified by Organiz ation Details LastModified Time 03/28/2020 US, obstetric, biophysical profile completed [email or web address] [address], [place], [address], 03/28/2020 15:00:47 04/19/2020 US, obstetric, biophysical profile completed [email or web address] [address], [place], [address], 04/19/2020 11:57:42 Procedure Notes None recorded. Medical Equipment None Reported. Allergies No known drug allergies Medications Name Sig Start Date Stop Date Status Note LastModified by Organization Details LastModified Time Prescription - Prior Authorization Request active Not Available Not Available Not Available medroxyproges terone 10 mg tablet active Not Available Not Available Not Available ibuprofen 800 mg tablet 05/30 completed Not Available Not Available Not Available Red Jacket Thyroid 120 mg tablet Take 1 tablet( s) every day by oral route. 2021 active Last MONA Not Available Not Available Not Available amoxicillin 875 mg-potassium clavulanate 125 mg tablet TAKE 1 TABLET BY MOUTH EVERY 12 HOURS FOR 7 DAYS 05/30 completed Not Available Not Available Not Available oxycodone 5 mg tablet 05/30 completed Not Available Not Available Not Available [place] Thyroid active Not Available Not Available Not Available Vitals Date Recorded Body height Body mass index (BMI) Systolic blood pressure Diastolic blood pressure Provider Name and Address Organization Details Last Updated DateTime 04/19/2020 162.4584 cm 35.1 kg/m2 150 mm[Hg] 92 mm[Hg] Wade Paredes (TERMED) [place] [facility] 04/19/2020 10:33:32 Date Recorded Body weight Provider Name an d Address Organization Details Last Updated DateTime 04/19/2020 [address] [place] [address] [facility],[address], [place], [address], [place] [facility] [employer] 04/19/2020 20:49:14 Date Recorded Body height Body mass index (BMI) Body weight Systolic blood pressure Diastolic blood pressure Provider Name and Address Organization Details Last Updated DateTime 05/02/2020 162.4584 cm 31.5 kg/m2 12664.4 g 160 mm[Hg] 96 mm[Hg] Wade Paredes (TERMED) [facility] [employer] 1 16:24:43 Date Recorded Body height Body mass index (BMI) Body weight Systolic blood pressure Diastolic blood pressure Provider Name and Address Organization Details Last Updated DateTime 05/30/2020 162.4584 cm 31.3 kg/m2 45016.81 g 112 mm[Hg] 60 mm[Hg] Wade Paredes (TERMED) [facility] [employer] [facility] 14:16:21 Social History Question Answer Notes LastModified by Gotcha Ninjas Details LastModified Time Tobacco Smoking Status Never Smoker Tobacco *Status: Never *Note: - Phreesia 02/23/2018 *Screenin02/23/2018 Not Available [facility] 11/30/2019 11:16:06 What Is Your Level Of Alcohol Consumption? None Alcohol *Status: Never *Note: - [employer]rees[employer] 02/23/2018 Information not available 11/30/2019 Sex: Unknown Functional Status Question Answer Note LastModified by Gotcha Ninjas Details LastModified Time What is your exercise level? Heavy Heavy Amount of Exercise (4 or more times weekly) *Note: - [employer]rees[employer] 01/26/2019 Information not available 11/30/2019 Mental Status None recorded. Family History Relationship Description Onset Age of this Age Resolved Age Notes LastModified by Organization Details LastModified Time Mother Family history of endocrine disorders Family Histor y of Thyroi d Disord er: - Claudeees ia 2017 [email or web address] Not available 11/26/2019 05:34:42 Medical History Condition Response Endocrinology- Thyroid Problems Urology- Recurrent Urinary Tract Infecti ons Gynecological History Statement/Question Response Date of Last Pap Smear 10/29/2019 Age at Menarche: 16 HPV Test Negative Obstetrics History GPAL:G 11 P 11 0 0 12 Type Value Multiple Births 1 Full Term 11 Induced 0 Spontaneous 0 Premature 0 Living 12 Ectopics 0 Total 11 Past Encounters Encounter ID Performer Location Encounter Start Date Encounter Closed Date Diagnosis/Indication Diagnosis SNOMED-CT Code Diagnosis ICD10 Code Diagnosis Note [id number] LUAN SINGH MD [id number] RO_[facility] [address] [place] [address] 12/24/2019 14:47:25 12/29/2019 18:38:38 [id number] LUAN SINGH MD [id number] [facility] [address] 12/24/2019 14:47:55 12/24/2019 15:29:53 Routine care 933889172 Z34.92 [id number] LUAN SINGH MD [id number] [facility] [address] [place], [place] [address] [address] 01/21/2020 15:28:05 01/25/2020 12:29:33 [id number] LUAN SINGH MD [id number] [facility] [place] [address] 02/29/2020 09:23:29 02/29/2020 10:40:27 Thyroid disorder screening 575443134 Z13.29 Venereal d isease screening 009959924 Z11.3 screening 2437 [address] Z36.89 Anemia of 4 2003 O99.433 [id number] LUAN SINGH MD [id number] [facility] [address] [place], [place] [address] [address] [place] [id number] 02/29/2020 09:23:29 02/29/2020 09:55:51 Large for gestation age fetus 285193273 O35.8XX9 [id number] LUAN SINGH MD [id number] [facility] [place] [address] 03/14/2020 10:53:06 03/14/2020 11:26:40 Routine care 415382792 Z34.92 [id number] LUAN SINGH MD [id number] [facility] [place] [address] 03/28/2020 10:47:40 03/28/2020 11:48:18 Routine care 596233225 Z34.92 - induced hypertension 73119079 O13.9 [id number] LUAN SINGH MD [id number] [facility] [address] [place] [address] 03/28/2020 11:35:38 03/28/2020 11:57:32 Large for gestation age fetus 217142832 O35.8XX9 [id number] LUAN SINGH MD [id number] RO_[facility] [facility] DOCMARYMireya FERRER [address] [place] [id number] 04/11/2020 15:36:25 04/11/2020 16:39:50 Routine care 155665350 Z34.92 [id number] LUAN SINGH MD [id number] RO_[facility] [address] [place] [address] 04/19/2020 09:28:49 04/19/2020 12:13:29 Routine care 846464749 Z34.92 [id number] LUAN SINGH MD [id number] RO[facility] [address] [place] [address] 04/19/2020 09:28:26 04/19/2020 09:57:51 Multigravida of advanced maternal age 393834018 O09.434 [id number] LUAN SINGH MD [id number] [facility] [address] [address] 05/02/2020 15:45:20 05/10/2020 11:17:33 Postoperative visit 615952482 Z09 [id number] LUAN SINGH MD [id number] RO[facility] [address] [place] [address] 05/30/2020 14:06:10 05/30/2020 15:10:29 care 676038578 Z39.2 Health Concerns Section Related Observation LastModified by Organization Detai ls LastModified Time None Recorded Concern Status LastModified by Organization Details LastModified Time None Recorded Advance Directives Directive None Recorded Payers Encounter Date Sequence Insurance Name Policy Number Policy Garnica Covered Member ID Garnica Member ID Guarantor Name 04/11/2020 1 [place] [facility] Pam B [place] [id number] Pam B Bhaskar 04/19/2020 1 [place] [facility] Pam B [place] [id number] Pam B [place] 04/19/2020 1 [place] [facility] Pam B [place] [id number] Pam B Bhaskar 05/02/2020 1 [place] [facility] Pam B Bhaskar [id number] Pam B Bhaskar 05/30/2020 1 [place] [facility] Pam B [place] [id number] Pam B [place] Notes Date Note Type Note Provider Name and Address Organization Details Recorded Time 05/02/2020 text/html Surgery Date: {{04/19/2020# enter in date}}. Patient presents for her {{post-operative firs t post-operative* secon d post-operative third post-operative hyster oscopy follow-up}} evaluation. Surgical procedure: {{ Section* Suction D&C Diagnostic Laparoscopy Robotic TLH, Bilateral Salpingectomy and Cystoscopy Hysterosco py, D&C and Endometrial ablation Tubal Ligation TVT-Placemen t TVT-O Vaginal Hysterectomy LAVH LAV H/BSO RoboticTLH Robo tic TLH, BSO with Cystoscopy Anterior & Posterior Repair a right oophorectomy a left oophorectomy Bilatera l Oophorectomy Dilation & Curettage Cystocele repair Rectocele repair mid-urethral sling Robotic assisted laparoscopic excision of endometriosis Robotic supracervical hysterectomy, Bilateral Salpingectomy, Sacralcolpopexy and Cystoscopy lysis of adhesions tubal dye study appendectomy cy stoscopy bilateral salpingo-ophorectomy sacrocervicopexy post erior repair perineorraphy Other:}}. Indication: {{Previous , preeclampsia# Missed AB Myomatous Uterus Pelvic Pain Dysmenorrhea Men orrhagia Infertility Urinary stress incontinence Dysmenor doron Post-menopausal bleeding Pelvic floor prolapse Cystocele Re ctocele Previous Breech Malpr esentation Failure to progress in labor Failure to descend distress Patient refusal of labor Failed induction of labor HELLP Syndrome Severe preeclampsia Other:}} . The procedure was done by: {{DO Padmaja Gabriel MD Thomas E. Grande, MD Kevin A. [place], MD* MD Hoda Langston MD Rachel S. Parritz, MD}}. She {{has no current complaints* has no unusual complaints reports:}} . - Here for staple removal today. [place] m[place] [address] [facility],[address], [place], [address], [facility] 05/08/2020 17:00:02 05/30/2020 text/html The patient pres ents for a exam. Delivery date: {{04/19/2020# enter delivery date}}. Delivered by: {{Mónica Sevilla MD# who delivered the patient}}. The baby was a {{boy* girl}}, weight {{6lbs 14oz# enter weight in pounds and oz}}, Name of baby {{Reji# enter baby name}}. Gestational Diabetes: {{ Yes No *}} Gestational Hypertension: {{Yes* No}} Last Tetanus Shot: {{unknown# input last tetanus shot}} The patient {{is not breast feeding is breast feeding without difficulty is breast and bottle feeding* is pumping and bottle feeding is breast feeding but having difficulty}}. The patient {{denies any breast lumps or issues* complains of breast lump(s) complains of breast issues not related to breast feeding}}. The patient {{does not need a Pap Smear at this time. Last pap done 10/29/2019 WNL NEG HPV# is due for a Pap Smear does not need a Pap Smear at this time will return for a Pap Smear}}. She had {{an uncomplicated vaginal delivery a primary a repeat * a repeat and bilateral salpingectomy a vaginal delivery complicated by: a vacuum-assisted vaginal delivery a forceps vaginal delivery}}. Depression: {{Yes No*}}. Infant(s) Status: {{Doing well* Other:}} She {{has not had any significant problems since her delivery has not had any significant problems since her * has developed:}}. The patient {{would like to use an oral contraceptive for control would like to use condoms/barrier methods for contraception would like to use an IUD for contraception would like to use a diaphragm would like to use no contraception* would like permanent sterilization had Depo-Provera in the hospital had permanent sterilization in the hospital has already started the Mini-Pill would like to use NuvaRing for contraception would like to use Nexplanon for contraception}}. Other {{the patient has no other concerns to address at this visit* the patient c/o:}}. - Still bleeding[place] [address] [facility],[address], [place], [address], [place] [facility] 05/30/2020 14:42:23 OBGyn Episode Ob Episode Information Episode Created Date Number of Fetuses Patient Bloodtype Patient rh Status Prepregnancy Weight lbs Domestic Partner Domestic Partner Phone Father Name Printing Manager Status 12/20/19 20 1 A Positive 177 Uriel (spouse) CLOSED Fetus Data First Name Last Name Admitted to NICU Weight (g) Sex Living Outcome Pediatric Complications Fetus ID Race Codes Race Delivery Type 3118.44 5 M Full Term 5658 Enrrique Calculation Initial Enrrique Date Initial Exam Date Initial Exam Provider Initial Ultrasound Date Last Menstrual Period Date Ultra Sound Weeks Gestation 05/08/2020 09/29/2019 aantonic 09/16/2019 08/02/2019 6 Eighteen To Twenty Week Enrrique Update Ultra Sound Date Fundal Height At Umbil Quickening Date Ultra Sound Latest Weeks Gestation Final Enrrique Confirmed By Final Enrrique Confirmed Date Final Enrrique Date Ultra Sound Latest Days Gestation 0 02/26/2020 05/08/19 21 0 Pre- Flowsheet Flowsheet Date 12/24/2019 Voss Score Blood Edema Fundus Height Fundus Units Glucose Ketones Leukocytes Nitrite Labor Signs Protein Cervic Dilation Cervic Effacement Cervic Station Type Weight in lbs Pre/Post Dialysis Refused BP Diastolic BP Location Tested BP Systolic BP Type Fetus Heart Rate Present Fetus Movement Comments Flowsheet Date 12/24/2019 Voss Score Blood Edema Fundus Height Fundus Units Glucose Ketones Leukocytes Nitrite Labor Signs Protein Cervic Dilation Cervic Effacement Cervic Station Type Weight in lbs Pre/Post Dialysis Refused Weight 187.640154312771 BP Diastolic BP Location Tested BP Systolic BP Type 82 130 sitting Fetus Heart Rate Present Fetus Movement Comments Normal FAS. Doing well Flowsheet Date 01/21/2020 Voss Score Blood Edema Fundus Height Fundus Units Glucose Ketones Leukocytes Nitrite Labor Signs Protein Cervic Dilation Cervic Effacement Cervic Station Type Weight in lbs Pre/Post Dialysis Refused Weight 193.11632719746 BP Diastolic BP Location Tested BP Systolic BP Type 76 142 sitting Fetus Heart Rate Present Fetus Movement Comments BP at home good. Baby active . S>D. US NOV Flowsheet Date 02/29/2020 Voss Score Blood Edema Fundus Height Fundus Units Glucose Ketones Leukocytes Nitrite Labor Signs Protein Cervic Dilation Cervic Effacement Cervic Station Type Weight in lbs Pre/Post Dialysis Refused BP Diastolic BP Location Tested BP Systolic BP Type Fetus Heart Rate Present Fetus Movement Comments Flowsheet Date 02/29/2020 Voss Score Blood Edema Fundus Height Fundus Units Glucose Ketones Leukocytes Nitrite Labor Signs Protein Cervic Dilation Cervic Effacement Cervic Station Type Weight in lbs Pre/Post Dialysis Refused Weight 199.633584691889 BP Diastolic BP Location Tested BP Systolic BP Type 86 132 sitting Fetus Heart Rate Present Fetus Movement Comments S=D. Check labs. Baby active . FU 2 weeks. CO fatigue Flowsheet Date 03/14/2020 Voss Score Blood Edema Fundus Height Fundus Units Glucose Ketones Leukocytes Nitrite Labor Signs Protein Cervic Dilation Cervic Effacement Cervic Station wks Type Weight in lbs Pre/Post Dialysis Refused Weight 200.953012624487 BP Diastolic BP Location Tested BP Systolic BP Type 78 132 sitting Fetus Heart Rate Present A 140 Present Fetus Movement A Yes Comments worried about possib le - pros and cons? Recommend - reviewed. Wondering if she needs iron infusion. HGB on 02/29/20 = 11.2, will hold off on iron infusion. Maintain a healthy diet. RTC in 2 wks. Flowsheet Date 03/28/2020 Voss Score Blood Edema Fundus Height Fundus Units Glucose Ketones Leukocytes Nitrite Labor Signs Protein Cervic Dilation Cervic Effacement Cervic Station Type Weight in lbs Pre/Post Dialysis Refused Weight 203.97751412353 BP Diastolic BP Location Tested BP Systolic BP Type 82 144 sitting Fetus Heart Rate Present Fetus Movement Comments BP Recheck:138/78. S=D. Baby active. All questions answered. Doing well Flowsheet Date 03/28/2020 Voss Score Blood Edema Fundus Height Fundus Units Glucose Ketones Leukocytes Nitrite Labor Signs Protein Cervic Dilation Cervic Effacement Cervic Station Type Weight in lbs Pre/Post Dialysis Refused BP Diastolic BP Location Tested BP Systolic BP Type Fetus Heart Rate Present Fetus Movement Comments S=D. Baby active. All questi ons answered. Doing well BPP 8/8. FU 1 week Flowsheet Date 04/11/2020 Voss Score Blood Edema Fundus Height Fundus Units Glucose Ketones Leukocytes Nitrite Labor Signs Protein Cervic Dilation Cervic Effacement Cervic Station Type Weight in lbs Pre/Post Dialysis Refused 0.0 Not Performed BP Diastolic BP Location Tested BP Systolic BP Type Fetus Heart Rate Present Fetus Movement Comments Teleheath visit. + sx Covd. Baby active. Was seen in ER. No contractions. FU 1 week. Flowsheet Date 04/19/2020 Voss Score Blood Edema Fundus Height Fundus Units Glucose Ketones Leukocytes Nitrite Labor Signs Protein Cervic Dilation Cervic Effacement Cervic Station Type Weight in lbs Pre/Post Dialysis Refused BP Diastolic BP Location Tested BP Systolic BP Type Fetus Heart Rate Present Fetus Movement Comments Flowsheet Date 04/19/2020 Voss Score Blood Edema Fundus Height Fundus Units Glucose Ketones Leukocytes Nitrite Labor Signs Protein Cervic Dilation Cervic Effacement Cervic Station Type Weight in lbs Pre/Post Dialysis Refused Weight 204.681148148624 BP Diastolic BP Location Tested BP Systolic BP Type 92 150 Fetus Heart Rate Present Fetus Movement Comments To [facility] [place] Menstrual History Last Menstrual Date Menses Monthly On Bcp Conception Prior Menses Frequency Hcg Plus Date Menarche Onset Age 0408/02/2019 15 Genetic Screening And Infection History Question Response Note Any Other Genetic History false Lucina Disease false Other Infection History false Thalassemia (Marshallese, Guatemalan, Mediterranean, Or Background): MCV < 80 false Patient Or Baby's Father Had A Child With Defects Not Listed Above false Patient's Age Will Be 35 Yea rs Or Older At Estimated Date of Delivery true Patient Recurrent Loss, Or A Stillbirth false Maternal Metabolic Disorder (eg, Type 1 Diabetes , PKU) false Muscular Dystrophy false History Of STD, Gonorrhea, Chlamydia, HPV, Syphi lis false History of Hepatitis false Prior GBS-infected child false If Yes, Was Person Tested For Fragile X? false If Yes, Agent(s) And Strength/Dosage false Rash Or Viral Illness Since Last Menstrual Perio d false Muscular Dystrophy false Cystic Fibrosis false Mental Retardation/Autism false Live With Someone With TB Or Exposed To TB false Thalassemia (Marshallese, Guatemalan, Mediterranean, Or Background): MCV < 80 false Sickle Cell Disease Or Trait () false Intellectual Disability/Autism false Patient Or Partner Has History Of Genital Herpes false History of HIV false Oziel-Sachs (eg, Tenriism, Cajun, Equatorial Guinean-Algerian) f alse Neural Tube Defect (Meningomyelocele, Spina Bifi da, Or Anencephaly) false Hemophilia Or Other Blood Disorders false Talbot's Chorea false Congenital Heart Defect false Other Inherited Genetic Or Chromosomal Disorder false Down Syndrome false Sickle Cell Disease Or Trait () false Congenital Heart Defect false Talbot's Chorea false Medications (including Suppl ements, Vitamins, Herbs, OTC Drugs), Illicit/Recreational Drugs, Alcohol false Cystic Fibrosis false Down Syndrome false Plans and Education First Trimester Discussed Date Discussion Item Discussion Note Discuss ed By 12/20/2019 HIV and other routine tests [facility] 12/20/2019 Risk factors identif ied by history [facility] 12/20/2019 Anticipated course of care [facility] 12/20/2019 Nutrition counseling ; special diet; dietary precautions (mercury, listeriosis) [facility] 12/20/2019 Weight gain counseling [facility] 12/20/2019 Toxoplasmosis precautions (cats/raw meat) [facility] 12/20/2019 Sexual activity [facility] 12/20/2019 Exercise [facility] 12/20/2019 Dental care [facility] 12/20/2019 Environmental/work hazards [facility] 12/20/2019 [facility] of saunas or [facility]s [facility]/2019 Teratogens [facility] 12/20/2019 Travel [facility] 12/20/2019 Tobacco/smoking cess ation counseling (ask, advise, assess, assist, and arrange) [facility] 12/20/2019 Alcohol [facility] 12/20/2019 Illicit/recreational drugs [facility] 12/20/2019 [facility] 12/20/2019 Screening for aneuploidy [facility] 12/20/2019 Use of any medicatio ns (including supplements, vitamins, herbs, or OTC drugs) [facility] 12/20/2019 Indications for ultrasonography [facility] 12/20/2019 Intimate partner violence [facility] 12/20/2019 Seat belt use [facility] 12/20/2019 Childbirth classes/hospital facilities [facility] Second Trimester Discussed Date Discussion Item Discussion Note Discuss ed By Third Trimester Discussed Date Discussion Item Discussion Note Discuss ed By Delivery Information Delivery Date Delivery Type Labor Anesthesia Weeks Gestation Incision Type Labor Labor Length Hrs Delivered By Post Complications Tubal Sterilization Discharge Date Comments 0 Regional-Sp inal 37.2 Low Transvers e Luan Rivera MD 04/21/2020 preeclamp megan Discharge Information Feeding Method Contraceptive Method Maternal HG B and HCT Levels Ob Episode Information Episode Created Date Number of Fetuses Patient Bloodtype Patient rh Status Prepregnancy Weight lbs Domestic Partner Domestic Partner Phone Father Name Printing Manager Status 05/27/19 21 1 CLOSED Fetus Data First Name Last Name Admitted to NICU Weight (g) Sex Living Outcome Pediatric Complications Fetus ID Race Codes Race Delivery Type 3430.06 2704 M Full Term [id number] Enrrique Calculation Initial Enrrique Date Initial Exam Date Initial Exam Provider Initial Ultrasound Date Last Menstrual Period Date Ultra Sound Weeks Gestation 0 Eighteen To Twenty Week Enrrique Update Ultra Sound Date Fundal Height At Umbil Quickening Date Ultra Sound Latest Weeks Gestation Final Enrrique Confirmed By Final Enrrique Confirmed Date Final Enrrique Date Ultra Sound Latest Days Gestation 0 0 Menstrual History Last Menstrual Date Menses Monthly On Bcp Conception Prior Menses Frequency Hcg Plus Date Menarche Onset Age Delivery Information Delivery Date Delivery Type Labor Anesthesia Weeks Gestation Incision Type Labor Labor Length Hrs Delivered By Post Complications Tubal Sterilization Discharge Date Comments 3 None 38 false Discharge Information Feeding Method Contraceptive Method Maternal HG B and HCT Levels Ob Episode Information Episode Created Date Number of Fetuses Patient Bloodtype Patient rh Status Prepregnancy Weight lbs Domestic Partner Domestic Partner Phone Father Name Printing Manager Status 05/27/19 21 2 CLOSED Fetus Data First Name Last Name Admitted to NICU Weight (g) Sex Living Outcome Pediatric Complications Fetus ID Race Codes Race Delivery Type F Full Term [id number] F Full Term [id number] Enrrique Calculation Initial Enrrique Date Initial Exam Date Initial Exam Provider Initial Ultrasound Date Last Menstrual Period Date Ultra Sound Weeks Gestation 0 Eighteen To Twenty Week Enrrique Update Ultra Sound Date Fundal Height At Umbil Quickening Date Ultra Sound Latest Weeks Gestation Final Enrrique Confirmed By Final Enrrique Confirmed Date Final Enrrique Date Ultra Sound Latest Days Gestation 0 0 Menstrual History Last Menstrual Date Menses Monthly On Bcp Conception Prior Menses Frequency Hcg Plus Date Menarche Onset Age Delivery Information Delivery Date Delivery Type Labor Anesthesia Weeks Gestation Incision Type Labor Labor Length Hrs Delivered By Post Complications Tubal Sterilization Discharge Date Comments 5 Regional-Sp inal 37 false preeclam p megan Discharge Information Feeding Method Contraceptive Method Maternal HG B and HCT Levels Ob Episode Information Episode Created Date Number of Fetuses Patient Bloodtype Patient rh Status Prepregnancy Weight lbs Domestic Partner Domestic Partner Phone Father Name Printing Manager Status 05/27/19 21 1 CLOSED Fetus Data First Name Last Name Admitted to NICU Weight (g) Sex Living Outcome Pediatric Complications Fetus ID Race Codes Race Delivery Type 3628.73 6 F Full Term [id number] Enrrique Calculation Initial Enrrique Date Initial Exam Date Initial Exam Provider Initial Ultrasound Date Last Menstrual Period Date Ultra Sound Weeks Gestation 0 Eighteen To Twenty Week Enrrique Update Ultra Sound Date Fundal Height At Umbil Quickening Date Ultra Sound Latest Weeks Gestation Final Enrrique Confirmed By Final Enrrique Confirmed Date Final Enrrique Date Ultra Sound Latest Days Gestation 0 0 Menstrual History Last Menstrual Date Menses Monthly On Bcp Conception Prior Menses Frequency Hcg Plus Date Menarche Onset Age Delivery Information Delivery Date Delivery Type Labor Anesthesia Weeks Gestation Incision Type Labor Labor Length Hrs Delivered By Post Complications Tubal Sterilization Discharge Date Comments 5 None 40 false Discharge Information Feeding Method Contraceptive Method Maternal HG B and HCT Levels Ob Episode Information Episode Created Date Number of Fetuses Patient Bloodtype Patient rh Status Prepregnancy Weight lbs Domestic Partner Domestic Partner Phone Father Name Printing Manager Status 05/27/19 21 1 CLOSED Fetus Data First Name Last Name Admitted to NICU Weight (g) Sex Living Outcome Pediatric Complications Fetus ID Race Codes Race Delivery Type 3628.73 6 M Full Term 02156 Enrrique Calculation Initial Enrrique Date Initial Exam Date Initial Exam Provider Initial Ultrasound Date Last Menstrual Period Date Ultra Sound Weeks Gestation 0 Eighteen To Twenty Week Enrrique Update Ultra Sound Date Fundal Height At Umbil Quickening Date Ultra Sound Latest Weeks Gestation Final Enrrique Confirmed By Final Enrrique Confirmed Date Final Enrrique Date Ultra Sound Latest Days Gestation 0 0 Menstrual History Last Menstrual Date Menses Monthly On Bcp Conception Prior Menses Frequency Hcg Plus Date Menarche Onset Age Delivery Information Delivery Date Delivery Type Labor Anesthesia Weeks Gestation Incision Type Labor Labor Length Hrs Delivered By Post Complications Tubal Sterilization Discharge Date Comments 4 Regional-Ep idural 40 false Discharge Information Feeding Method Contraceptive Method Maternal HG B and HCT Levels Ob Episode Information Episode Created Date Number of Fetuses Patient Bloodtype Patient rh Status Prepregnancy Weight lbs Domestic Partner Domestic Partner Phone Father Name Printing Manager Status 05/27/19 21 1 CLOSED Fetus Data First Name Last Name Admitted to NICU Weight (g) Sex Living Outcome Pediatric Complications Fetus ID Race Codes Race Delivery Type 3628.73 6 F Full Term 68075 Enrrique Calculation Initial Enrrique Date Initial Exam Date Initial Exam Provider Initial Ultrasound Date Last Menstrual Period Date Ultra Sound Weeks Gestation 0 Eighteen To Twenty Week Enrrique Update Ultra Sound Date Fundal Height At Umbil Quickening Date Ultra Sound Latest Weeks Gestation Final Enrrique Confirmed By Final Enrrique Confirmed Date Final Enrrique Date Ultra Sound Latest Days Gestation 0 0 Menstrual History Last Menstrual Date Menses Monthly On Bcp Conception Prior Menses Frequency Hcg Plus Date Menarche Onset Age Delivery Information Delivery Date Delivery Type Labor Anesthesia Weeks Gestation Incision Type Labor Labor Length Hrs Delivered By Post Complications Tubal Sterilization Discharge Date Comments 2 None 41 false Discharge Information Feeding Method Contraceptive Method Maternal HG B and HCT Levels Ob Episode Information Episode Created Date Number of Fetuses Patient Bloodtype Patient rh Status Prepregnancy Weight lbs Domestic Partner Domestic Partner Phone Father Name Printing Manager Status 05/27/19 21 1 CLOSED Fetus Data First Name Last Name Admitted to NICU Weight (g) Sex Living Outcome Pediatric Complications Fetus ID Race Codes Race Delivery Type 3628.73 6 F Full Term 64273 Enrrique Calculation Initial Enrrique Date Initial Exam Date Initial Exam Provider Initial Ultrasound Date Last Menstrual Period Date Ultra Sound Weeks Gestation 0 Eighteen To Twenty Week Enrrique Update Ultra Sound Date Fundal Height At Umbil Quickening Date Ultra Sound Latest Weeks Gestation Final Enrrique Confirmed By Final Enrrique Confirmed Date Final Enrrique Date Ultra Sound Latest Days Gestation 0 0 Menstrual History Last Menstrual Date Menses Monthly On Bcp Conception Prior Menses Frequency Hcg Plus Date Menarche Onset Age Delivery Information Delivery Date Delivery Type Labor Anesthesia Weeks Gestation Incision Type Labor Labor Length Hrs Delivered By Post Complications Tubal Sterilization Discharge Date Comments 7 None 40 false Discharge Information Feeding Method Contraceptive Method Maternal HG B and HCT Levels Ob Episode Information Episode Created Date Number of Fetuses Patient Bloodtype Patient rh Status Prepregnancy Weight lbs Domestic Partner Domestic Partner Phone Father Name Printing Manager Status 05/27/19 21 1 CLOSED Fetus Data First Name Last Name Admitted to NICU Weight (g) Sex Living Outcome Pediatric Complications Fetus ID Race Codes Race Delivery Type 3628.73 6 M Full Term [id number] Enrrique Calculation Initial Enrrique Date Initial Exam Date Initial Exam Provider Initial Ultrasound Date Last Menstrual Period Date Ultra Sound Weeks Gestation 0 Eighteen To Twenty Week Enrrique Update Ultra Sound Date Fundal Height At Umbil Quickening Date Ultra Sound Latest Weeks Gestation Final Enrrique Confirmed By Final Enrrique Confirmed Date Final Enrrique Date Ultra Sound Latest Days Gestation 0 0 Menstrual History Last Menstrual Date Menses Monthly On Bcp Conception Prior Menses Frequency Hcg Plus Date Menarche Onset Age Delivery Information Delivery Date Delivery Type Labor Anesthesia Weeks Gestation Incision Type Labor Labor Length Hrs Delivered By Post Complications Tubal Sterilization Discharge Date Comments 1 Regional- idural 40 false Discharge Information Feeding Method Contraceptive Method Maternal HG B and HCT Levels Ob Episode Information Episode Created Date Number of Fetuses Patient Bloodtype Patient rh Status Prepregnancy Weight lbs Domestic Partner Domestic Partner Phone Father Name Printing Manager Status 05/27/19 21 1 CLOSED Fetus Data First Name Last Name Admitted to NICU Weight (g) Sex Living Outcome Pediatric Complications Fetus ID Race Codes Race Delivery Type 2721.55 2 F Full Term 57525 Enrrique Calculation Initial Enrrique Date Initial Exam Date Initial Exam Provider Initial Ultrasound Date Last Menstrual Period Date Ultra Sound Weeks Gestation 0 Eighteen To Twenty Week Enrrique Update Ultra Sound Date Fundal Height At Umbil Quickening Date Ultra Sound Latest Weeks Gestation Final Enrrique Confirmed By Final Enrrique Confirmed Date Final Enrrique Date Ultra Sound Latest Days Gestation 0 0 Menstrual History Last Menstrual Date Menses Monthly On Bcp Conception Prior Menses Frequency Hcg Plus Date Menarche Onset Age Delivery Information Delivery Date Delivery Type Labor Anesthesia Weeks Gestation Incision Type Labor Labor Length Hrs Delivered By Post Complications Tubal Sterilization Discharge Date Comments 8 None 38 false preeclam p megan Discharge Information Feeding Method Contraceptive Method Maternal HG B and HCT Levels Ob Episode Information Episode Created Date Number of Fetuses Patient Bloodtype Patient rh Status Prepregnancy Weight lbs Domestic Partner Domestic Partner Phone Father Name Printing Manager Status 05/27/19 21 1 CLOSED Fetus Data First Name Last Name Admitted to NICU Weight (g) Sex Living Outcome Pediatric Complications Fetus ID Race Codes Race Delivery Type M Full Term [id number] Enrrique Calculation Initial Enrrique Date Initial Exam Date Initial Exam Provider Initial Ultrasound Date Last Menstrual Period Date Ultra Sound Weeks Gestation 0 Eighteen To Twenty Week Enrrique Update Ultra Sound Date Fundal Height At Umbil Quickening Date Ultra Sound Latest Weeks Gestation Final Enrrique Confirmed By Final Enrrique Confirmed Date Final Enrrique Date Ultra Sound Latest Days Gestation 0 0 Menstrual History Last Menstrual Date Menses Monthly On Bcp Conception Prior Menses Frequency Hcg Plus Date Menarche Onset Age Delivery Information Delivery Date Delivery Type Labor Anesthesia Weeks Gestation Incision Type Labor Labor Length Hrs Delivered By Post Complications Tubal Sterilization Discharge Date Comments 0 None 40 false Discharge Information Feeding Method Contraceptive Method Maternal HG B and HCT Levels Ob Episode Information Episode Created Date Number of Fetuses Patient Bloodtype Patient rh Status Prepregnancy Weight lbs Domestic Partner Domestic Partner Phone Father Name Printing Manager Status 05/27/19 21 1 CLOSED Fetus Data First Name Last Name Admitted to NICU Weight (g) Sex Living Outcome Pediatric Complications Fetus ID Race Codes Race Delivery Type M Full Term 70601 Enrrique Calculation Initial Enrrique Date Initial Exam Date Initial Exam Provider Initial Ultrasound Date Last Menstrual Period Date Ultra Sound Weeks Gestation 0 Eighteen To Twenty Week Enrrique Update Ultra Sound Date Fundal Height At Umbil Quickening Date Ultra Sound Latest Weeks Gestation Final Enrrique Confirmed By Final Enrrique Confirmed Date Final Enrrique Date Ultra Sound Latest Days Gestation 0 0 Menstrual History Last Menstrual Date Menses Monthly On Bcp Conception Prior Menses Frequency Hcg Plus Date Menarche Onset Age Delivery Information Delivery Date Delivery Type Labor Anesthesia Weeks Gestation Incision Type Labor Labor Length Hrs Delivered By Post Complications Tubal Sterilization Discharge Date Comments 8 Regional-Sp inal 38 false Discharge Information Feeding Method Contraceptive Method Maternal HG B and HCT Levels
--- OUTSIDE RECORDS SUMMARY | 2024-08-08 11:00 | XMS_ITS | Encounter Summary ---
Author Organization [facility] Address [address] [place] [id number] Care Team Providers Care Choir Teacher Name Role Phone Luan Inman MD Primary Care Provide r Sanjuana Ambrocio PA-C Primary Care Provide r Isabelle Dumont MD Unavailable [phone] Isabelle Dumont MD Unavailable [phone] Lexi Low Unavailable [phone] Encounter Details Date Type Department Care Team (Late st Contact Info) Description 11/17/2020 Documentation Only INTERFACED REPORT Unknown, Provider Social History Tobacco Use Types Packs/Day Years Used Date Smoking Tobacco: Never Smokeless Tobacco: Never Alcohol Use Standard Drinks/Week Comments Not Currently 0 (1 standard drink = 0.6 oz pur e alcohol) PHQ-2 Answer Date Recorded PHQ-2 Score 0 08/04/2024 [place] Depression Scale Answer Date Recorded Last EPDS Total Score Not on file 01/21/2022 The thought of harming myself has occurred to me . Never 01/21/2022 Adolescent Education Answer Date Record ed Getting School Help Needed Not on file 01/12 Comments Unknown Sex and Gender Information Value Date Recorded Sex Assigned at Not on file Legal Sex Female 5:01 PM CDT Gender Identity Not on file Sexual Orientation Not on file COVID-19 Exposure Response Date Recorded In the last 10 days, have yo u been in contact with someone who was confirmed or suspected to have Coronavirus/COVID-19? No / Unsure 10/25/2022 8:05 AM CDT documented as of this encounter Plan of Treatment Upcoming Encounters Date Type Department Care Team (Late st Contact Info) Description 08/24/2024 8:20 AM CDT Office Visit [facility] [address] [place] [address] Isabelle Dumont MD [address] [place] [address] documented as of this encounter Visit Diagnoses Not on filedocumented in this encounter Care Teams Choir Teacher Relationship Specialty Start Date End Date Luan Inman MD [address] [place] [address] [address] [place] [address] PCP - General coater operator insulation board 04/07/18 09/10/23 Sanjuana Ambrocio PA-C [facility] [address] [place] [address] PCP - General coater operator insulation board 09/11/23 Isabelle Dumont MD [address] [place] [address] Interventional Cardiology 04/23/24 Isabelle Dumont MD [address] [place] [address] Assigned Heart and Vascular Provider 05/14/24 Lexi Low MBBS [address] [place] [address] [address] [place] [address] Assigned Endocrinology Provider 05/14/24 documented as of this encounter
--- OUTSIDE RECORDS SUMMARY | 2024-08-08 11:00 | XMS_ITS | Encounter Summary ---
Author Organization [place] Address [address] [place] [address] Care Team Providers Care International Marketing Coordinator Name Role Phone Sanjuana Ambrocio PA-C Primary Care Provide r Isabelle Dumont MD Unavailable [phone] Isabelle Dumont MD Unavailable [phone] Lexi Low Unavailable [phone] Encounter Details Date Type Department Care Team (Late st Contact Info) Description 08/06/2024 [facility] [address] 3rd [place] [address] Paulino Franco Social History Tobacco Use Types Packs/Day Years Used Date Smoking Tobacco: Never Smokeless Tobacco: Never Alcohol Use Standard Drinks/Week Comments Not Currently 0 (1 standard drink = 0.6 oz pur e alcohol) PHQ-2 Answer Date Recorded PHQ-2 Score 0 08/04/2024 [place] Depression Scale Answer Date Recorded Last EPDS [...] Description 08/24/2024 8:20 AM CDT Office Visit [facility] [address] [facility] [address] [place] [address] Isabelle Dumont MD [address] [place] [address] documented as of this encounter Visit Diagnoses Not on filedocumented in this encounter Care Teams International Marketing Coordinator Relationship Specialty Start Date End Date Sanjuana Ambrocio PA-C [facility] [address] [place] [address] PCP - General baker pie 09/11/23 Isabelle Dumont MD [address] [place] [address] Interventional Cardiology 04/23/24 Isabelle Dumont MD [address] [place] [address] Assigned Heart and Vascular Provider 05/14/24 Lexi Low MBBS [address] [place] [address] [address] [place] [address] Assigned Endocrinology Provider 05/14/24 documented as of this encounter
--- OUTSIDE RECORDS SUMMARY | 2024-08-08 11:00 | XMS_ITS | Encounter Summary ---
Author Organization [place] Address [address] [place] [address] Care Team Providers Care Plating And Point Assembly Supervisor Name Role Phone Sanjuana Ambrocio PA-C Primary Care Provide r Isabelle Dumont MD Unavailable [phone] Isabelle Dumont MD Unavailable [phone] Lexi Low Unavailable [phone] Encounter Details Date Type Department Care Team (Late st Contact Info) Description 05/07/2024 [facility]ology [facility] [place] [address] [facility] 3rd [place] [address] Lexi Low MBBS [address] [facility], [facility] [address] [place], [place] [address] Social History Tobacco Use Types Packs/Day Years Used Date Smoking Tobacco: Never Smokeless Tobacco: Never Alcohol Use Standard Drinks/Week Comments Not Currently 0 (1 standard drink = 0.6 oz pur e alcohol) PHQ-2 Answer Date Recorded PHQ-2 Score 0 05/05/2024 [place] Depression Scale Answer Date Recorded Last EPDS [...] Description 08/24/2024 8:20 AM CDT Office Visit [place] [id number] [facility] [address] [place] [address] Isabelle Dumont MD [address] [place] [address] documented as of this encounter Visit Diagnoses Not on filedocumented in this encounter Care Teams Plating And Point Assembly Supervisor Relationship Specialty Start Date End Date Sanjuana Ambrcoio PA-C [facility] [address] [facility] [address] PCP - General education reporter 09/11/23 Isabelle Dumont MD [address] [place] [address] Interventional Cardiology 04/23/24 Isabelle Dumont MD [address] [place] [address] Assigned Heart and Vascular Provider 05/14/24 Lexi Low MBBS [address] [place] [address] Assigned Endocrinology Provider 05/14/24 documented as of this encounter
--- NOTE | 2024-08-08 11:05 | ED.GENADULT ---
HPI - General Adult General Time Seen by Provider: 11:05 Date Seen: 08/08/24 Chief complaint: Fever Stated complaint: head pain, fever, cough Time Seen by Provider: 08/08/24 11:04 Source: patient, RN notes reviewed and old records reviewed Mode of arrival: ambulatory Limitations: no limitations History of Present Illness HPI narrative: 43-year-old female who presents today with fever and headache. Patient was seen today in urgent care. She presents with 6 days posterior headache, neck pain, cough, subjective fever, chills, malaise, decreased appetite. Other family members had a more typical upper respiratory infection prior to this. She denies nausea but says her stomach feels poorly, no diarrhea, no chest pain, no abdominal pain, some shortness breath with exertion. Taking Tylenol and ibuprofen. Initially went to urgent care and was directed to the emergency department due to their concern of meningitis. Related Data Home Medications ?Medication ?Instructions ?Recorded ?Confirmed levothyroxine 112 mcg tablet 112 mcg PO DAILY 04/18/24 08/08/24 liothyronine 5 mcg tablet 5 mcg PO DAILY 04/18/24 08/08/24 Previous Rx's ?Medication ?Instructions ?Recorded amoxicillin 875 mg-potassium 1 tab PO Q12H #14 tabs 08/08/24 clavulanate 125 mg tablet azithromycin 250 mg tablet 250 mg PO DAILY 4 days #4 tabs 08/08/24 Allergies Allergy/AdvReac Type Severity Reaction Status Date / Time No Known Drug Allergies Allergy Verified 08/08/24 09:59 PFSH PFSH Social History Smoking Status: Former smoker Do you use any of these nicotine containing products: None Second hand tobacco smoke exposure: No How often do you have a drink containing alcohol: never AUDIT-C Alcohol total score: 0 Non-prescribed substance use: denies use service: No Exam Narrative: Exam Narrative: General: Well-developed and well-nourished, no acute distress Head: Atraumatic and normocephalic Eyes: Pupils are equal reactive, extraocular motions intact, conjunctiva clear ENT: External nose and ears are normal, posterior pharynx without erythema or exudate Neck: No midline cervical tenderness, full spontaneous range of motion the neck, trachea midline, no adenopathy Heart: Regular rate and rhythm no murmurs or thrills Lungs: Crackles on the right Abdomen: Soft, nontender, nondistended with active bowel sounds Musculoskeletal: No tenderness, deformity, or edema Neurologic: Awake, alert, and oriented x3, no gross focal neurologic deficits, cranial nerves intact as tested Psych: Mood and affect are appropriate Skin: No rashes Const: Vital Signs, click to edit/add: Vital Signs - 24 hr 08/08/24 11:07 Temperature 99.2 F Pulse Rate [Pulse Oximeter] 93 Respiratory Rate 18 Blood Pressure [Ri ght Upper Arm] 144/86 H Pulse Oximetry 98 Oxygen Delivery Me thod Room Air Course Course ED Course: Reviewed note from urgent care today when patient seen for same symptoms, was sent to the emergency department due to concern for meningitis. Patient with cough and posterior headache going on for the last 6 days, no photophobia, no nausea vomiting, no confusion. Clinically patient does not have meningitis and would not recommend lumbar puncture further testing at this time. She does have cough and subjective fevers, she is afebrile here with no hypoxia. Trace crackles on the right on lung exam, no abdominal tenderness, no lower extremity swelling. Labs ordered along with IV fluids, Toradol, dexamethasone for symptom management. Anticipate discharge. Low risk by Wells criteria, PERC negative, no indication for D-dimer CT PE study for pulmonary embolism evaluation. Reevaluation(s) Time of Reevaluation #1: 12:12 Reevaluation #1: Chest x-ray and bili interpreted by me with right sided infiltrate consistent with community-acquired pneumonia, Rocephin and azithromycin ordered for the emergency department with Augmentin and azithromycin for home. Respiratory panel and panel interpreted by me negative for influenza, COVID, RSV. Patient rechecked and updated results. Anticipate discharge Time of Reevaluation #2: 12:16 Reevaluation #2: Labs in the pill interpreted by me with normal CBC, normal basic panel. Patient is stable for discharge. Vital Signs Vital signs: Initial Vital Signs Temperature 99.2 F 08/08/24 11:07 Temperature Source Temporal Artery Scan 08/08/24 11:07 Pulse Rate 93 08/08/24 11:07 Respiratory Rate 18 08/08/24 11:07 Blood Pressure 144/86 H 08/08/24 11:07 Blood Pressure Mean 105 08/08/24 11:07 Pulse Oximetry 98 08/08/24 11:07 Oxygen Delivery Method Room Air 08/08/24 11:07 Vital Signs Temperature 99.2 F 08/08/24 11:07 Pulse Rate 93 08/08/24 11:07 Respiratory Rate 18 08/08/24 11:07 Blood Pressure 144/86 H 08/08/24 11:07 Pulse Oximetry 98 08/08/24 11:07 Oxygen Delivery Method Room Air 08/08/24 11:07 Temperature 99.2 F 08/08/24 11:07 Pulse Rate 93 08/08/24 11:07 Respiratory Rate 18 08/08/24 11:07 Blood Pressure 144/86 H 08/08/24 11:07 Pulse Oximetry 98 08/08/24 11:07 Oxygen Delivery Method Room Air 08/08/24 11:07 Medications Administered Medications: Generic Name Dose Route Start Last Admin Trade Name Freq PRN Reason Stop Dose Admin Sodium Chloride 1,000 mls @ 1,000 mls/hr 08/08/24 11:30 08/08/24 11:45 0.9 % Sodium Chloride 1000 Ml IV 08/08/24 12:29 1,000 mls/hr .Q1H ELVIRA Administration Discontinued Medications Generic Name Dose Route Start Last Admin Trade Name Freq PRN Reason Stop Dose Admin Azithromycin 500 mg 08/08/24 11:58 08/08/24 12:09 Azithromycin 250 Mg Tablet PO 08/08/24 11:59 500 mg ONCE ONE Administration Dexamethasone 10 mg 08/08/24 11:46 08/08/24 11:53 Dexamethasone 10 Mg/Ml Pf IVP 08/08/24 11:47 10 mg ONCE ONE Administration Ceftriaxone Sodium 2 gm/ 100 mls @ 200 mls/hr 08/08/24 11:58 08/08/24 12:09 Sodium Chloride IVPB 08/08/24 11:59 200 mls/hr ONCE ONE Administration Ketorolac Tromethamine 15 mg 08/08/24 11:26 08/08/24 11:45 Ketorolac 15 Mg/Ml Inj IVP 08/08/24 11:27 15 mg ONCE ONE Administration Medical Decision Making Lab Data Labs: Lab Results 08/08/24 08/08/24 Range/Units 11:09 11:45 WBC 7.57 (4.50-11.00) K/uL RBC 4.92 (4.00-5.20) m/uL Hgb 13.9 (12.0-16.0) gm/dL Hct 41.1 (33.0-51.0) % MCV 84 (80-100) fL MCH 28 (26-34) pg MCHC 34 (32-36) gm/dL RDW Coeff of Richard 12.7 (11.5-15.5) % Plt Count 276 (140-440) K/uL Neut % (Auto) 74.7 H (42.0-72.0) % Lymph % (Auto) 10.7 L (20-44) % [place] % (Auto) 11.6 H (0.0-11.0) % Eos % (Auto) 1.5 (0.0-7.0) % Baso % (Auto) 0.4 (0.0-3.0) % Neut # (Auto) 5.70 (1.7-7.0) K/uL Lymph # (Auto) 0.80 L (0.90-2.90) K/uL [place] # (Auto) 0.90 (0.00-0.90) K/UL Eos # (Auto) 0.11 (0.00-0.50) K/uL Baso # (Auto) 0.03 (0.00-0.30) K/uL Abs Immat Gran (auto) 0.08 (0.00-0.30) K/uL Imm/Tot Granulo (auto) 1.1 % Sodium 137 (135-149) mmol/L Potassium 3.6 (3.6-5.1) mmol/L Chloride 100 (96-114) mmol/L Carbon Dioxide 29 (20-32) mmol/L Anion Gap 8 (7-15) mEq/L BUN 10 (5-24) mg/dL Creatinine 0.8 (0.5-1.5) mg/dL Estimated Creat Clear 75.78 Estimated GFR 94 ml/min Glucose 92 (60-115) mg/dL Calcium 8.9 (8.4-10.6) mg/dL SARS-CoV-2 (PCR) Negative SARS-CoV-2 (Negative) Influenza Type A (PCR) Negative PCR FLU A (Negative) Influenza Type B (PCR) Negative PCR FLU B (Negative) RSV (PCR) Negative PCR RSV (Negative) Discharge Plan Discharge Clinical Impression: Community acquired bacterial pneumonia Patient Disposition: Home, Self-Care Condition: Stable Instructions: Community Acquired Pneumonia (DC) Additional Instructions: Lots of fluids and rest Tylenol and ibuprofen scheduled Take antibiotics as prescribed starting tomorrow morning Activity Level: Activity as Tolerated Discharge Diet: Regular Prescriptions: New amoxicillin-pot clavulanate 875-125 mg tablet 1 tab PO Q12H Qty: 14 0RF azithromycin 250 mg tablet 250 mg PO DAILY 4 Days Qty: 4 0RF Rx Instructions: Start on 08/09/24 No Action levothyroxine 112 mcg tablet 112 mcg PO DAILY liothyronine 5 mcg tablet 5 mcg PO DAILY Follow Up/Referrals: Provider,Not a Local [Primary Care Provider] - Stand Alone Forms: [employer] Info Instructions
[2024-08-08 11:07] VITALS: BP 144/86; PULSE 93; RESP 18; TEMP 37.3; O2SAT 98; BMI 31.9
--- NOTE | 2024-08-08 11:26 | CRLHL7_ITS ---
For Patients: As a result of the Cures Act, medical imaging exams and procedure reports are released immediately into your electronic medical record. You may view this report before your referring provider. If you have questions, please contact your health care provider. INDICATION: Cough and fever. COMPARISON: None available. TECHNIQUE: 2 views. FINDINGS: Medical Devices: None. Lung Volumes: Adequate inspiration. No significant atelectasis. Lungs: Right middle lobe consolidation consistent with pneumonia. The left lung is clear. Pleura and Pleural spaces: No significant pleural effusion. No pneumothorax. Mediastinum: Normal cardiomediastinal silhouette. Bony Thorax and Soft Tissues: No significant incidental findings. IMPRESSION: Right middle lobe consolidation consistent with pneumonia. Dictated by Yomi Gonsales MD @ 08/08/2024 1:01:56 PM (Electronically Signed)
--- OUTSIDE RECORDS SUMMARY | 2024-08-08 11:40 | XMS_ITS | Encounter Summary ---
Author Organization [place] Address [address] [place] [address] Care Team Providers Care Keyboard Operator Name Role Phone Sanjuana Ambrocio PA-C Primary Care Provide r Isabelle Dumont MD Unavailable [phone] Isabelle Dumont MD Unavailable [phone] Lexi Low Unavailable [phone] Encounter Details Date Type Department Care Team (Late st Contact Info) Description 08/06/2024 [facility] End[facility] Clinic [address] 3rd [place] [address] Paulino Franco Social History Tobacco Use Types Packs/Day Years Used Date Smoking Tobacco: Never Smokeless Tobacco: Never Alcohol Use Standard Drinks/Week Comments Not Currently 0 (1 standard drink = 0.6 oz pur e alcohol) PHQ-2 Answer Date Recorded PHQ-2 Score 0 08/04/2024 [place] Depression Scale Answer Date Recorded Last [...] Description 08/24/2024 8:20 AM CDT Office Visit [facility] [address] [facility] [address] [place] [address] Isabelle Dumont MD [address] [place] [address] documented as of this encounter Visit Diagnoses Not on filedocumented in this encounter Care Teams Keyboard Operator Relationship Specialty Start Date End Date Sanjuana Ambrocio PA-C [facility] [address] [place] [address] PCP - General stock controller 09/11/23 Isabelle Dumont MD [address] [place] [address] Interventional Cardiology 04/23/24 Isabelle Dumont MD [address] [place] [address] Assigned Heart and Vascular Provider 05/14/24 Lexi Low MBBS [address] [place] [address] [address] [place] [address] Assigned Endocrinology Provider 05/14/24 documented as of this encounter
--- OUTSIDE RECORDS SUMMARY | 2024-08-08 11:40 | XMS_ITS | Clinical Summary ---
Author Organization [place] Address [address] [place] [address] Care Team Providers Care Motor Brakeman Name Role Phone Sanjuana Ambrocio PA-C Primary Care Provide r Isabelle Dumont MD Unavailable [phone] Isabelle Dumont MD Unavailable [phone] Lexi Low Unavailable [phone] Allergies No known active allergies Medications [...] Care Team Description 08/06/2024 [place] [facility] Endocrinology [address] [phone] Paulino Franco 08/04/2024 1:30 PM CDT Virtual Visit [facility] [address] [phone] Lexi Low MBBS Hypothyroidism, unspecified type (Primary Dx); Chronic fatigue 07/20/2024 [place] [facility] [address] [phone] Lexi Low MBBS 07/13/2024 [place] [facility] [address] [place] [phone] Isabelle Dumont MD Heart palpitations (Primary Dx) 05/14/2024 Telephone [facility] End[facility]ology [address] [phone] Lexi Low MBBS Orders 05/11/2024 8:30 AM HOME OFFICE REPRESENTATIVE Lab [facility] [address] [place] [address] Chronic fatigue 05/11/2024 Travel from Last 3 Months Social History Tobacco Use Types Packs/Day Years Used Date Smoking Tobacco: Never Smokeless Tobacco: Never Tobacco Cessation:Counseling Given: Not Answered Alcohol Use Standard Drinks/Week Comments Not Currently 0 (1 standard drink = 0.6 oz pur e alcohol) PHQ-2 Answer Date Recorded PHQ-2 Score 0 08/04/2024 [place] Depression Scale Answer Date Recorded Last EPDS [...] Comments Blood Pressure 122/83 04/28/2024 3:55 PM HOME OFFICE REPRESENTATIVE Pulse 72 04/28/2024 3:55 PM HOME OFFICE REPRESENTATIVE Temperature 36.5 C (97.7 F) 10/25/2022 8:24 AM CDT Respiratory Rate 16 10/25/2022 8:24 AM CDT Oxygen Saturation 98% 04/28/2024 3:55 PM HOME OFFICE REPRESENTATIVE Inhaled Oxygen Concentration - - Weight 80.7 kg (178 lb) 04/28/2024 3:55 PM HOME OFFICE REPRESENTATIVE Height 160 cm (5' 3) 04/28/2024 3:55 PM HOME OFFICE REPRESENTATIVE Body Mass Index 31.53 04/28/2024 3:55 PM HOME OFFICE REPRESENTATIVE Plan of Treatment Upcoming Encounters Date Type Department Care Team (Late st Contact Info) Description 08/24/2024 8:20 AM CDT Office [facility] [address] [facility] [address] [place] [phone] Isabelle Dumont MD [address] [place], [place] [phone] Health Maintenance Due Date Last Done Comments [...] MAIL OUT Routine 06/03/2024 2: 11 PM HOME OFFICE REPRESENTATIVE Heart palpitations ADRENAL CORTICOTROPIN Routine 05/11/2024 8:33 AM HOME OFFICE REPRESENTATIVE Chronic fatigue CORTISOL Routine 05/11/2024 8:33 AM HOME OFFICE REPRESENTATIVE Chronic fatigue GLUCOSE BY METER Routine 08/24/2022 6:02 AM CDT HIV 1&2 ANTIBODY (EXTERNAL RESULT) Routine 08/07/2021 from Last 3 Months or Most Recently Relevant to Health Maintenance Results * Thyroid Stimulating Hormone (TSH) (External Result) (07/27/2024 2:05 PM CDT) TSH (External) 3.800 0.270 - 4.20 uIU/mL [facility] Blood 07/27/2024 2:05 PM CDT Narrative [facility] - 07/27/2024 2:05 PM CDT [facility]- External Lab Results us Provider Outside LAB - HIM EXTERNAL RESULT Final Result [facility] [address] [phone] * Lab Result - HIM Scan (07/27/2024 12:00 AM CDT) 07/27/2024 us Provider Outside NON-BEAKER LAB TESTING Final Result * ZIO PATCH MAIL OUT (06/03/2024 2:11 PM HOME OFFICE REPRESENTATIVE) Zio Prelim Results Patient had a min [...] Region Laterality Modality Other 06/03/2024 2:11 PM HOME OFFICE REPRESENTATIVE Narrative 06/03/2024 4:32 PM HOME OFFICE REPRESENTATIVE Zio monitoring from 05/06/2024 to 05/20/2024 (duration [...] Final Result * Cortisol (05/11/2024 8:33 AM HOME OFFICE REPRESENTATIVE) Cortisol 11.5 ug/dL 05/11/2024 4:24 PM HOME OFFICE REPRESENTATIVE [facility] Comment: 6 months and older: 6 to 10 AM Cortisol Reference Range: 4-22 ug/dL 4 to 8 PM Cortisol Reference Range: 3-17 ug/dL Blood BLOOD SPECIMEN / Unknown Venipuncture / Unknown 05/11/2024 8:33 AM HOME OFFICE REPRESENTATIVE 05/11/2024 8:36 AM HOME OFFICE REPRESENTATIVE [facility] - BLOOD ORDERABLES Final Re sult [facility] [address] [facility], [address] * Adrenal corticotropin (05/11/2024 8:33 AM HOME OFFICE REPRESENTATIVE) Adrenal Corticotropin 12 <47 pg/mL 05/12/2024 11:58 AM HOME OFFICE REPRESENTATIVE [facility]/PROT/END O Blood BLOOD SPECIMEN / Unknown Venipuncture / Unknown 05/11/2024 8:33 AM HOME OFFICE REPRESENTATIVE 05/11/2024 8:36 AM HOME OFFICE REPRESENTATIVE Result [facility] LAB - BLOOD ORDERABLES Final Re sult [facility] CORE/PROT/ENDO [facility] Core/Prot/Endo [address] [facility] [address], [address] * (ABNORMAL) Glucose by meter (08/24/2022 6:02 AM CDT) GLUCOSE BY METER POCT 127(H) 70 - 99 mg/dL 08/24/2022 6:09 AM CDT [facility] POCT RESULTS Blood, Capillary BLOOD SPECIMEN / Unknown 08/24/2022 6:02 AM CDT 08/24/2022 6:09 AM CDT us Mtaheus Gordillo MD LAB - BEAKER POCT Fi nal Result [facility] POCT RESULTS [address] [place] [address] * HIV-1 Antibody (External Result) (08/07/2021) HIV 1&2 Antibody (External) Nonreactive Nonreactive EXTERNAL LAB 08/07/2021 us Patient Reported LAB - HIM EXTERNAL RESULT Final Result EXTERNAL LAB External Lab from Last 3 Months or Most Recently Relevant to Health Maintenance Insurance [employer] [facility] Address: [address] [place] [address] [employer] [facility] Address: [address], [place] [address] Advance Directives For more information, please contact: [phone] * Full Code (Latest Code Status on [...] by: Other (please docslickn t) Care Teams Motor Brakeman Relationship Specialty Start Date End Date Sanjuana Ambrocio PA-C [facility] [address] [place] [address] PCP - General garment manufacturing supervisor 09/11/23 Isabelle Dumont MD [address] [place] [address] Interventional Cardiology 04/23/24 Isabelle Dumont MD [address] [place] [address] Assigned Heart and Vascular Provider 05/14/24 Lexi Low MBBS [address] [place] [address] Assigned Endocrinology Provider 05/14/24
--- OUTSIDE RECORDS SUMMARY | 2024-08-08 11:40 | XMS_ITS | Encounter Summary ---
Author Organization [place] Address [address] [place] [address] Care Team Providers Care Bus Inspector Name Role Phone Luan Inman MD Primary Care Provide r Sanjuana Ambrocio PA-C Primary Care Provide r Isabelle Dumont MD Unavailable [phone] Isabelle Dumont MD Unavailable [phone] Lexi Low Unavailable [phone] Encounter Details Date Type Department Care Team (Late st Contact Info) Description 11/17/2020 Documentation Only INTERFACED REPORT Unknown, Provider Social History Tobacco Use Types Packs/Day Years Used Date Smoking Tobacco: Never Smokeless Tobacco: Never Alcohol Use Standard Drinks/Week Comments Not Currently 0 (1 standard drink = 0.6 oz pur e alcohol) PHQ-2 Answer Date Recorded PHQ-2 Score 0 08/04/2024 [place] Depression Scale Answer Date Recorded Last EPDS [...] Description 08/24/2024 8:20 AM CDT Office Visit [facility] [address] [facility] [address] [place] [address] Isabelle Dumont MD [address] [place] [address] documented as of this encounter Visit Diagnoses Not on filedocumented in this encounter Care Teams Bus Inspector Relationship Specialty Start Date End Date Luan Inman MD [address] [place] [address] [address] [place] [address] PCP - General box truck owner operator 04/07/18 09/10/23 Sanjuana Ambrocio PA-C [facility] [address] [place] [address] PCP - General box truck owner operator 09/11/23 Isabelle Dumont MD [address] [place] [address] Interventional Cardiology 04/23/24 Isabelle Dumont MD [address] [place] [address] Assigned Heart and Vascular Provider 05/14/24 Lexi Low MBBS [address] [place] [address] [address] [place] [address] Assigned Endocrinology Provider 05/14/24 documented as of this encounter
--- OUTSIDE RECORDS SUMMARY | 2024-08-08 11:40 | XMS_ITS | Encounter Summary ---
Author Organization [facility] Address [address] [place] [address] Care Team Providers Care Medical Reception Name Role Phone Sanjuana Ambrocio PA-C Primary Care Provide r Isabelle Dumont MD Unavailable [phone] Isabelle Dumont MD Unavailable [phone] Lexi Low Unavailable [phone] Reason for Visit * Reason Comments Video Visit Consult * Consultation (Routine) - Pending Review Specialty Diagnoses / Procedures Referred By Contac t Referred To Contact Endocrinology, Diabetes, and Metabolism Diagnoses Hypothyroidism GENERIC EXTERNAL DATA DEPARTMENT Referral ID Status Reason Start Date Expiration Date V isits Requested Visits Authorized [id number] Pending Review 09/10/2023 09/09/2024 1 1 Encounter Details Date Type Department Care Team (Late st Contact Info) Description 05/05/2024 11:00 AM STEEL HANGER Virtual Visit [facility] [place] [address] [facility] 3rd [place] [address] Lexi Low MBBS [address] [facility] [address] [place], [place] [id number] Chronic fatigue (Primary Dx); Hypothyroidism, unspecified type Social History Tobacco Use Types Packs/Day Years Used Date Smoking Tobacco: Never Smokeless Tobacco: Never Alcohol Use Standard Drinks/Week Comments Not Currently 0 (1 standard drink = 0.6 oz pur e alcohol) PHQ-2 Answer Date Recorded PHQ-2 Score 0 08/04/2024 [place] Depression Scale Answer Date Recorded Last EPDS [...] Lexi Low MBBS - 05/05/2024 11:00 AM STEEL HANGER - To get lab test at 08:00 am - To continue with the current dose of levothyroxine 112 mcg and to change cytomel (liothyronine) to half tablet twice daily. - To get lab test in 3 months to check thyroid hormones do it 1-2 days before the visit. Imaging (DEXA, CT, MRI, XRAY) [facility] ([facility], [facility], [place]) [phone] [facility] ([place], [place]) [phone] [facility] ([facility]) [phone] [facility] ([facility]) [phone] Lab General [facility] [phone] [place] [phone] [facility] [phone] [facility] [phone] [place] [phone] [facility]) [phone] [facility] Walk-In Only [place] [phone] [place] [phone] [place] [phone] [place] [phone] Infusion [facility] [phone] [place] [phone] [place] [phone] [place] [phone] [place] [phone] [place] [phone] [facility] [phone] For any questions, please reach out to the Endocrinology Clinic Number for assistance: [phone]. L HANGER documented in this encounter Progress Notes * Lexi Low MBBS - 05/05/2024 11:00 AM CST Endocrinology Clinic Visit 05/05/2024 Video-Visit Details Type of service: Video Visit Video Start Time (time video started): 11:05 AM Video End Time (time video stopped): 11:47 AM Originating Location (pt. Location): Home Distant Location (provider location): Off-site Mode of Communication: Video Conference via [employer] Physician has received verbal consent for a [...] Procedure: SECTION; Surgeon: Luan Inman MD; Location: [facility] OR; Service: Obstetrics SECTION N/A 04/19/2020 Procedure: SECTION; Surgeon: Luan Inman MD; Location: [facility] OR; Service: Obstetrics SECTION N/A 01/18/2022 Procedure: SECTION; Surgeon: Matheus Gordillo MD; Location: [facility] DILATION AND CURETTAGE DILATION AND CURETTAGE, OPERATIVE HYSTEROSCOPY, COMBINED N/A 08/03/2022 Procedure: HYSTEROSCOPY DILATION AND CURETTAGE WITH SUCTION; Surgeon: Georgia Parks MD; Location: [facility] OR HYSTERECTOMY VAGINAL Bilateral 08/23/2022 Procedure: HYSTERECTOMY, VAGINAL.; Surgeon: Matheus Gordillo MD; Location: [facility] OR LAPAROSCOPY DIAGNOSTIC (CHAIR FINISHER) N/A 08/23/2022 Procedure: LAPAROSCOPY; Surgeon: Matheus Gordillo MD; Location: [facility] OR LAPAROSCOPY DIAGNOSTIC (CHAIR FINISHER) N/A 08/23/2022 Procedure: LAPAROSCOPY; Surgeon: Matheus Gordillo MD; Location: [facility] OR wisdom teeth Social History Social History [...] HDL, LDL, TRIG, CHOLHDLRATIO in the last 94782 hours. No results found for: [id number], [id number], [id number] I personally reviewed the patient's outside records from [facility] EMR, Care Everywhere, and faxed records. Summary of pertinent findings in HPI. Impression / Plan 1. Hypothyroidism: Known history of hypothyroidism since age of [age] years old. She was on Nunica Thyroid for years however started to develop's symptoms of hyperthyroidism after that the dose was reduced developed hypothyroidism then taken off Nunica Thyroid and placed on levothyroxine and later [...] labs [facility] Endocrinology, Diabetes and Metabolism [facility] Note: Chart documentation done in part with [employer] Voice Recognition software. Although reviewed after completion, some word and grammatical errors may remain. Please consider this when interpreting information in this chart L HANGER documented in this encounter Nursing Notes * Jazmin Pastrana - 05/05/2024 11:00 AM CST Current patient location: [place] Is the patient currently in the state of [place]? YES Visit mode: VIDEO If the visit is dropped, the patient can be reconnected by:VIDEO VISIT: Text to cell phone: Telephone Information: Will anyone else be joining the visit? NO (If patient encounters technical issues they should call [phone]) Are changes needed to the allergy or medication list? No Are refills needed on medications prescribed by this physician? NO Rooming Documentation: Questionnaire(s) completed Reason for visit: Video Visit and Consult Jazmin Pastrana VVF L HANGER documented in this encounter Plan of Treatment Upcoming Encounters Date Type Department Care Team (Late st Contact Info) Description 08/24/2024 8:20 AM CDT Office Visit [facility] [address] [facility] [address] [place] [phone] Isabelle Dumont MD [address] [place] [address] Scheduled Orders Name Type Priority Associated Diagnoses Orde r Schedule TSH Lab Routine Hypothyroidism, unspecified type Expected: 08/03/2024 (Approximate), Expires: 05/05/2025 T4 free Lab Routine Hypothyroidism, unspecified type Expected: 08/03/2024 (Approximate), Expires: 05/05/2025 T3 total Lab Routine Hypothyroidism, unspecified type Expected: 08/03/2024 (Approximate), Expires: 05/05/2025 documented as of this encounter Results * Adrenal corticotropin (05/11/2024 8:33 AM STEEL HANGER) Adrenal Corticotropin 12 <47 pg/mL 05/12/2024 11:58 AM STEEL HANGER SPECIALTY CORE/PROT/END O Blood BLOOD SPECIMEN / Unknown Venipuncture / Unknown 05/11/2024 8:33 AM STEEL HANGER 05/11/2024 8:36 AM STEEL HANGER Lexi [facility] - BLOOD ORDERABLES Final Re sult Performing Organization Address City/[facility]/ZIP Co de Phone Number SPECIALTY CORE/PROT/ENDO Specialty Core/Prot/Endo [address] [facility], [address] * Cortisol (05/11/2024 8:33 AM STEEL HANGER) Cortisol 11.5 ug/dL 05/11/2024 4:24 PM STEEL HANGER [facility] Comment: 6 months and older: 6 to 10 AM Cortisol Reference Range: 4-22 ug/dL 4 to 8 PM Cortisol Reference Range: 3-17 ug/dL Blood BLOOD SPECIMEN / Unknown Venipuncture / Unknown 05/11/2024 8:33 AM STEEL HANGER 05/11/2024 8:36 AM STEEL HANGER Lexi [facility] - BLOOD ORDERABLES Final Re sult [facility] [place] [facility] [address] [facility], [address] documented in this encounter Visit Diagnoses Diagnosis Chronic fatigue- Primary Other malaise and fatigue Hypothyroidism, unspecified type documented in this encounter Care Teams Medical Reception Relationship Specialty Start Date End Date Sanjuana Ambrocio PA-C [facility] [address] [place] [address] PCP - General pantograph ii engraver 09/11/23 Isabelle Dumont MD [address] [place] [address] Interventional Cardiology 04/23/24 Isabelle Dumont MD [address] [place] [address] Assigned Heart and Vascular Provider 05/14/24 Lexi Low MBBS [address] [place] [address] [address] [place] [address] Assigned Endocrinology Provider 05/14/24 documented as of this encounter
--- OUTSIDE RECORDS SUMMARY | 2024-08-08 11:40 | XMS_ITS | Encounter Summary ---
Author Organization [facility] Address [address] [place] [address] Care Team Providers Care Swing Frame Grinder Operator Name Role Phone Sanjuana Ambrocio PA-C Primary Care Provide r Isabelle Dumont MD Unavailable [phone] Isabelle Dumont MD Unavailable [phone] Lexi Low Unavailable [phone] Encounter Details Date Type Department Care Team (Late st Contact Info) Description 05/07/2024 MyC Medical Advice [facility] Endocrinology Clinic [place] [address] [facility] 3rd [place] [address] Lexi Low MBBS 420 [facility] 101 [place], [place] [address] Social History Tobacco Use Types Packs/Day Years Used Date Smoking Tobacco: Never Smokeless Tobacco: Never Alcohol Use Standard Drinks/Week Comments Not Currently 0 (1 standard drink = 0.6 oz pur e alcohol) PHQ-2 Answer Date Recorded PHQ-2 Score 0 05/05/2024 [place] Depression Scale Answer Date Recorded Last EPDS [...] Description 08/24/2024 8:20 AM CDT Office Visit [place] [address] [facility] [address] [place] [address] Isabelle Dumont MD [address] [place] [address] documented as of this encounter Visit Diagnoses Not on filedocumented in this encounter Care Teams Swing Frame Grinder Operator Relationship Specialty Start Date End Date Sanjuana Ambrocio PA-C [facility] [address] [facility] [address] PCP - General baling machine operator 09/11/23 Isabelle Dumont MD [address] [place] [address] Interventional Cardiology 04/23/24 Isabelle Dumont MD [address] [place] [address] Assigned Heart and Vascular Provider 05/14/24 Lexi Low MBBS [address] [place] [address] Assigned Endocrinology Provider 05/14/24 documented as of this encounter
--- OUTSIDE RECORDS SUMMARY | 2024-08-08 11:40 | XMS_ITS | Encounter Summary ---
Author Organization [facility] Address [address] [place] [address] Care Team Providers Care Cup Trimming Machine Operator Name Role Phone Sanjuana Ambrocio PA-C Primary Care Provide r Isabelle Dumont MD Unavailable [phone] Isabelle Dumont MD Unavailable [phone] Lexi Low Unavailable [phone] Encounter Details Date Type Department Care Team (Late st Contact Info) Description 07/20/2024 MyC Medical Advice [facility] Endocrinology Clinic [place] [address] [facility] 3rd [place] [address] Lexi Low MBBS 420 [facility] 101 [place], [place] [address] Social History Tobacco Use Types Packs/Day Years Used Date Smoking Tobacco: Never Smokeless Tobacco: Never Alcohol Use Standard Drinks/Week Comments Not Currently 0 (1 standard drink = 0.6 oz pur e alcohol) PHQ-2 Answer Date Recorded PHQ-2 Score 0 05/05/2024 [place] Depression Scale Answer Date Recorded Last EPDS [...] Description 08/24/2024 8:20 AM CDT Office Visit [place] [address] [facility] [address] [place] [address] Isabelle Dumont MD [address] [place] [address] documented as of this encounter Visit Diagnoses Not on filedocumented in this encounter Care Teams Cup Trimming Machine Operator Relationship Specialty Start Date End Date Sanjuana Ambrocio PA-C [facility] [address] [facility] [place] [address] PCP - General contracts officer 09/11/23 Isabelle Dumont MD [address] [place] [address] Interventional Cardiology 04/23/24 Isabelle Dumont MD [address] [place] [address] Assigned Heart and Vascular Provider 05/14/24 Lexi Low MBBS [address] [place] [address] Assigned Endocrinology Provider 05/14/24 documented as of this encounter
--- OUTSIDE RECORDS SUMMARY | 2024-08-08 11:40 | XMS_ITS | Encounter Summary ---
Author Organization [facility] Address [address] [place] [address] Care Team Providers Care Manager Icu Name Role Phone Sanjuana Ambrocio PA-C Primary Care Provide r Isabelle Dumont MD Unavailable [phone] Isabelle Dumont MD Unavailable [phone] Lexi Low Unavailable [phone] Reason for Visit * Reason Comments RECHECK Encounter Details Date Type Department Care Team (Late st Contact Info) Description 08/04/2024 1:30 PM CDT Virtual Visit [facility] Endocrinology Clinic [place] [address] [facility] 3rd [place] [address] Lexi Low MBBS 420 [facility] 101 [place], [place] [address] Hypothyroidism, unspecified type (Primary Dx); Chronic fatigue Social History Tobacco Use Types Packs/Day Years Used Date Smoking Tobacco: Never Smokeless Tobacco: Never Alcohol Use Standard Drinks/Week Comments Not Currently 0 (1 standard drink = 0.6 oz pur e alcohol) PHQ-2 Answer Date Recorded PHQ-2 Score 0 08/04/2024 [place] Depression Scale Answer Date Recorded Last EPDS [...] Off-site Mode of Communication: Video Conference via [facility] Physician has received verbal consent for a [...] cortisol 11.5, ACTH 12, 07/27/2024: Labs at [facility] TSH 3.8 (0.27-4.0), free T4 0.77 (0.7-1.85) [...] Procedure: SECTION; Surgeon: Luan Inman MD; [facility] Service: Obstetrics SECTION N/A 04/19/2020 Procedure: SECTION; Surgeon: Luan Inman MD; Location: [facility] OR; Service: Obstetrics SECTION N/A 01/18/2022 Procedure: SECTION; Surgeon: Matheus Gordillo MD; Location: [facility] OR DILATION AND CURETTAGE DILATION AND CURETTAGE, OPERATIVE HYSTEROSCOPY, COMBINED N/A 08/03/2022 Procedure: HYSTEROSCOPY DILATION AND CURETTAGE WITH SUCTION; Surgeon: Georgia Parks MD; Location: [facility] OR HYSTERECTOMY VAGINAL Bilateral 08/23/2022 Procedure: HYSTERECTOMY, VAGINAL.; Surgeon: Matheus Gordillo MD; Location: [facility] OR LAPAROSCOPY DIAGNOSTIC (HARPOON ENGAGEMENT PLANNING OPERATOR) N/A 08/23/2022 Procedure: LAPAROSCOPY; Surgeon: Matheus Gordillo MD; Location: [facility] OR LAPAROSCOPY DIAGNOSTIC (HARPOON ENGAGEMENT PLANNING OPERATOR) N/A 08/23/2022 Procedure: LAPAROSCOPY; Surgeon: Matheus Gordillo MD; Location: [facility] OR wisdom teeth Social History Social History [...] HDL, LDL, TRIG, CHOLHDLRATIO in the last 07541 hours. No results found for: [id number], [id number], [id number] I personally reviewed the patient's outside records from [facility] EMR, Care Everywhere, and faxed records. Summary [...] visit [facility] Endocrinology, Diabetes and Metabolism [facility] Note: Chart documentation done in part with [employer] Voice Recognition software. Although reviewed after completion, some word and grammatical errors may remain. Please consider this when interpreting information in this chart documented in this encounter Nursing Notes * Jazmin Adam - 08/04/2024 1:30 PM CDT Current patient location: [place] Is the patient currently in the state of [place]? YES Visit mode: VIDEO If the visit is dropped, the patient can be reconnected by:VIDEO VISIT: Text to cell phone: Telephone Information: Will anyone else be joining the visit? NO (If patient encounters technical issues they should call [phone]) Are changes needed to the allergy or medication list? No Are refills needed on medications prescribed by this physician? NO Rooming Documentation: Questionnaire(s) completed Reason for visit: RECHECK Jazmni Adam VVF documented in this encounter Plan of Treatment Upcoming Encounters Date Type Department Care Team (Late st Contact Info) Description 08/24/2024 8:20 AM CDT Office Visit [facility] [address] [facility] [address] [place] [phone] Isabelle Dumont MD [address] [place] [address] Scheduled Orders Name Type Priority Associated Diagnoses [...] fatigue documented in this encounter Care Teams Manager Icu Relationship Specialty Start Date End Date Sanjuana Ambrocio PA-C [facility] [address] [place] [address] PCP - General gas plumbing inspector 09/11/23 Isabelle Dumont MD [address] [place] [address] Interventional Cardiology 04/23/24 Isabelle Dumont MD [address] [place] [address] Assigned Heart and Vascular Provider 05/14/24 Lexi Low MBBS [address] [place] [address] Assigned Endocrinology Provider 05/14/24 documented as of this encounter
--- OUTSIDE RECORDS SUMMARY | 2024-08-08 11:40 | XMS_ITS | Encounter Summary ---
Author Organization [facility] Address [address] [place] [address] Care Team Providers Care Core Drier Name Role Phone Sanjuana Ambrocio PA-C Primary Care Provide r Isabelle Dumont MD Unavailable [phone] Isabelle Dumont MD Unavailable [phone] Lexi Low Unavailable [phone] Encounter Details Date Type Department Care Team (Late st Contact Info) Description 04/28/2024 [facility] [place] [address] [facility] [address] [place] [address] Reported, Patient Social History Tobacco Use Types Packs/Day Years Used Date Smoking Tobacco: Never Smokeless Tobacco: Never Alcohol Use Standard Drinks/Week Comments Not Currently 0 (1 standard drink = 0.6 oz pur e alcohol) PHQ-2 Answer Date Recorded PHQ-2 Score 0 04/28/2024 [place] Depression Scale Answer Date Recorded Last EPDS [...] Description 08/24/2024 8:20 AM CDT Office Visit [facility] [address] [facility] [address] [place] [address] Isabelle Dumont MD [address] [place] [address] documented as of this encounter Procedures Procedure Name Priority Date/Time Associated Diagnosis Comments LAB RESULT - HIM SCAN Routine 04/07/2024 10:28 AM PIE FILLER documented in this encounter Results * Lab Result - HIM Scan (04/07/2024 10:28 AM PIE FILLER) us Patient Reported MH NON-BEAKER LAB TESTING Final Result documented in this encounter Visit Diagnoses Not on filedocumented in this encounter Care Teams Core Drier Relationship Specialty Start Date End Date Sanjuana Ambrocio PA-C [facility] [address] [facility] [place] [address] PCP - General physics professor 09/11/23 Isabelle Dumont MD [address] [place] [address] Interventional Cardiology 04/23/24 Isabelle Dumont MD [address] [place] [address] Assigned Heart and Vascular Provider 05/14/24 Lexi Low MBBS [address] [place] [address], [facility] [address] [place] [address] Assigned Endocrinology Provider 05/14/24 documented as of this encounter
--- OUTSIDE RECORDS SUMMARY | 2024-08-08 11:40 | XMS_ITS | Encounter Summary ---
Author Organization [facility] Address [facility] [place] [address] Care Team Providers Care Dray Driver Name Role Phone Sanjuana Ambrocio PA-C Primary Care Provide r Isabelle Dumont MD Unavailable [phone] Isabelle Dumont MD Unavailable [phone] Lexi Low Unavailable [phone] Reason for Referral * Consultation (Routine) - Pending Review Specialty Diagnoses / Procedures Referred By Contac t Referred To Contact Cardiovascular Disease Diagnoses Heart palpitations Isabelle Dumont MD [address] [place] [address] Phone: tel: fax: Referral ID Status Reason Start Date Expiration Date V isits Requested Visits Authorized [id number] Pending Review 07/20/2024 07/20/2025 1 1 Question Answer Follow-up with: Self Patient Scheduling Instructions: [facility] will call you to coordinate your care as prescribed by your provider. If you have concerns about scheduling, please call [phone]. Comments [facility] will call you to coordinate your care as prescribed by your provider. If you have concerns about scheduling, please call [phone]. Encounter Details Date Type Department Care Team (Latest Contact Info) Description 07/13/2024 MyC Medical Advice M [address] [place] [address] Isabelle Dumont MD [address] [place] [address] Heart palpitations (Primary Dx) Social History Tobacco Use Types Packs/Day Years Used Date Smoking Tobacco: Never Smokeless Tobacco: Never Alcohol Use Standard Drinks/Week Comments Not Currently 0 (1 standard drink = 0.6 oz pur e alcohol) PHQ-2 Answer Date Recorded PHQ-2 Score 0 05/05/2024 [place] Depression Scale Answer Date Recorded Last EPDS [...] Description 08/24/2024 8:20 AM CDT Office Visit [address] [place] [address] Isabelle Dumont MD [address] [place] [address] Scheduled Referrals Name Type Priority Associated Diagnoses Orde r Schedule Follow-Up with Cardiology Referral Routine: Next available opening Heart palpitations Expected: 07/20/2024 (Approximate), Expires: 07/20/2025 documented as of this encounter Visit Diagnoses Diagnosis Heart palpitations- Primary Palpitations documented in this encounter Care Teams Dray Driver Relationship Specialty Start Date End Date Sanjuana Ambrocio PA-C [facility] [address] [place] [address] PCP - General director of regulatory affairs 09/11/23 Isabelle Dumont MD [address] [place] [address] Interventional Cardiology 04/23/24 Isabelle Dumotn MD [address] [place] [address] Assigned Heart and Vascular Provider 05/14/24 Lexi Low MBBS [address] [place] [address] [address] [place] [address] Assigned Endocrinology Provider 05/14/24 documented as of this encounter
--- OUTSIDE RECORDS SUMMARY | 2024-08-08 11:40 | XMS_ITS | Clinical Summary ---
Author Organization [facility] Address [address] [place] [address] Care Team Providers Care Proofer Prepress Name Role Phone Dagoberto Hernández M.D. Primary Care Provider [phone] Source Comments Patient records contain information from all sites at [facility]. For routine questions regarding patient records, call [phone] during business hours, M-F 8:00 AM - 5:00 PM Central Time. Record requests for emergency care only can be directed to [phone] at any time.[facility] Allergies No known active allergies Medications * This document contains information received from the source organization and may not represent a complete record from that organization. ibuprofen (ADVIL,MOTRIN) 800 mg tablet Take 800 mg by mouth. 8 Active NUTRITIONISTS THYROID 120 mg tablet Take 1 tablet (120 mg total) by mouth daily. 90 tablet 3 9 Active medroxyPROGESTE Karlo (PROVERA) 10 mg tablet 0 Active multivitamin (Multiple Vitamins) tablet Take 1 tablet by mouth daily. Active thyroid, pork, (Attalla Thyroid) 120 mg tablet Take 120 mg by mouth. Active estradioL (ESTRACE) 0.1 mg/g (0.01%) vaginal creamIndication s:Atrophy Vagina Due To Estrogen Deficiency Insert 1 g into the vagina as directed. Insert 1 gram vaginally at bedtime on MWF. 42.5 g 3 3 Active cholecalciferol , vitamin D3, 25 mcg (1,000 Unit) tablet Take 1 tablet by mouth daily. Active Attalla Thyroid 30 mg tablet 3 Active Active Problems Problem Noted Date Diagnosed Date Hypothyroidism 09/04/2019 Encounters Date Type Department Care Team Description 06/23/2024 Orders Only [facility] PCP [facility] MNT Dagoberto Hernández M.D. Screening Lipid 06/12/2024 Clinical Communication Department of Family Medicine, [facility], in [address] [phone] Dagoberto Hernández M.D. Health Maintenance from Last [...] THYROID-STIMULATING HORMONE-SENSITIVE (S-TSH) Routine 06/16/2021 3:42 PM [facility] [employer] Hypothyroidism from Last 3 Months or Most Recently Relevant to Health Maintenance Results * S-TSH (Thyroid-Stimulating Hormone - Sensitive) (06/16/2021 3:42 PM [employer]) TSH, Sensitive 0.3 0.3 - 4.2 mIU/L 06/16/2021 4:38 PM [employer] CNFL Blood (Blood, Venous) 06/16/2021 3:42 PM [employer] 06/16/2021 3:44 PM [employer] us Dagoberto Hernández M.D. LAB BLOOD ADD-ON Final Re sult [facility] [address] [place] [id number], [facility] [address] [id number] from Last 3 Months or Most Recently Relevant to Health Maintenance Insurance [facility] [place] [id number] Care Teams Proofer Prepress Relationship Specialty Start Date End Date Dagoberto Hernández M.D. [address] [place] [phone] PCP - General Family Medicine 08/11/18
[2024-08-08] MEDS: KETOROLAC 15 MG/ML inj IVP (11:45)
[2024-08-08] MEDS: 0.9 % SODIUM CHLORIDE 1000 ml 1,000 ML IV (11:45)
[2024-08-08] MEDS: DEXAMETHASONE 10 MG/ML PF IVP (11:53)
[2024-08-08 12:00] LABS: PCR FLU A Negative PCR FLU A (Negative); PCR FLU B Negative PCR FLU B (Negative); PCR RSV Negative PCR RSV (Negative); SARS PCR* Negative SARS-CoV-2 (Negative)
[2024-08-08 12:07] LABS: Chloride* 100 mmol/L (96-114); Potassium* 3.6 mmol/L (3.6-5.1); Sodium* 137 mmol/L (135-149)
[2024-08-08] MEDS: AZITHROMYCIN 250 MG TABLET 500 MG PO (12:09)
[2024-08-08] MEDS: cefTRIAXone 2 GM in 0.9 % SODIUM CHLORIDE Mini-bag 100 ML IVPB (12:09)
[2024-08-08 12:10] LABS: Anion Gap 8 mEq/L (7-15); Blood Urea Nitrogen* 10 mg/dL (5-24); Carbon Dioxide* 29 mmol/L (20-32); Creatinine* 0.8 mg/dL (0.5-1.5); Est. Creatinine Clearance* 75.78; Estimated Glomerular Filt Rate 94 ml/min
[2024-08-08 12:11] LABS: Calcium* 8.9 mg/dL (8.4-10.6); Glucose* 92 mg/dL (60-115)
[2024-08-08 12:13] LABS: Basophils Absolute Auto 0.03 K/uL (0.00-0.30); Basophils Percent Auto 0.4 % (0.0-3.0); Eosinophils Absolute Auto 0.11 K/uL (0.00-0.50); Eosinophils Percent Auto 1.5 % (0.0-7.0); Hematocrit 41.1 % (33.0-51.0); Hemoglobin* 13.9 gm/dL (12.0-16.0); Immature Granulocytes Abs Auto 0.08 K/uL (0.00-0.30); Immature Granulocytes Pct Auto 1.1 %; Lymphocytes Percent Auto 10.7 % (20-44); Mean Corpuscular HGB Conc 34 gm/dL (32-36); Mean Corpuscular Hemoglobin 28 pg (26-34); Mean Corpuscular Volume 84 fL (80-100); Monocytes Percent Auto 11.6 % (0.0-11.0); Neutrophils Percent Auto 74.7 % (42.0-72.0); Platelet Count* 276 K/uL (140-440); RDW Coefficient of Variation % 12.7 % (11.5-15.5); Red Blood Count 4.92 m/uL (4.00-5.20); White Blood Count* 7.57 K/uL (4.50-11.00)
[2024-08-08 12:14] LABS: Slide Review Reflex No
[2024-08-08 13:00] VITALS: BP 123/80; PULSE 80; RESP 18; O2SAT 95
== END 2024-08-08 13:06 | disposition home or self-care (01) ==
PROVIDERS: Emergency Provider Family Medicine
DX: J18.9 Pneumonia, unspecified organism (principal)
CPT/HCPCS: 36415; 71046; 80048; 85025; 87631; 96365; 96375; 99284; 99285; A9270; J0696; J1100; J1885; J7030

== ENCOUNTER 2024-11-16 08:50 | Outpatient (CLI) | payer BC, SELFPAY ==
--- NOTE | 2024-11-16 09:00 | CRLHL7_ITS ---
For Patients: As a result of the Century Cures Act, medical imaging exams and procedure reports are released immediately into your electronic medical record. You may view this report before your referring provider. If you have questions, please contact your health care provider. INDICATION: Left lower quadrant and groin pain for 2 weeks. Palpable bulge. TECHNIQUE: CT abdomen and pelvis acquired with 89 mL Isovue 370 IV contrast. COMPARISON: None available. FINDINGS: Lower chest: No focal consolidation. Liver: No suspicious focal hepatic lesion. Gallbladder and bile ducts: Cholelithiasis. No secondary signs of acute cholecystitis. Pancreas: Unremarkable. Spleen: Unremarkable. Adrenal glands: Unremarkable. Kidneys: Kidneys enhance symmetrically, without hydronephrosis. Retroperitoneum: No lymphadenopathy. Bowel and mesentery: Bowel is not obstructed. No significant ascites, no pneumoperitoneum. Normal appendix. Bladder: Mild circumferential urinary bladder wall thickening. Reproductive organs: Post hysterectomy. Pelvic lymph nodes: No lymphadenopathy. Vessels: Unremarkable. Abdominal wall: No acute abdominal wall abnormality. Specifically, no left inguinal or left femoral hernia is identified. Bones: Mild multilevel degenerative changes of the spine. No suspicious/aggressive focal osseous lesion. IMPRESSION: 1. No acute abdominal wall abnormality. Specifically, no left inguinal or left femoral hernia identified. 2. Mild circumferential urinary bladder wall thickening, may be secondary to cystitis versus underdistention. Recommend correlation with urinalysis. 3. Cholelithiasis. Please note that all CT scans at this facility use dose modulation, iterative reconstruction, and/or weight-based dosing when appropriate to reduce radiation dose to as low as reasonably achievable. Dictated by Verenice Keith MD @ 11/18/2024 1:32:04 PM (Electronically Signed)
== END 2024-11-16 08:51 | disposition home or self-care (01) ==
PROVIDERS: PCP Family Medicine; Visit Provider Family Medicine
DX: R10.32 Left lower quadrant pain (principal); K80.20 Calculus of gallbladder without cholecystitis without obstruction
CPT/HCPCS: 74177; Q9967

== ENCOUNTER 2024-11-20 09:08 | Outpatient (CLI) | payer BC, SELFPAY | END 2024-11-20 09:09 | disposition home or self-care (01) | LOC: NFLDREF 11-25 10:32 | PROVIDERS: PCP Family Medicine; Referring Provider Family Medicine; Visit Provider Surgery | DX: N32.89 Other specified disorders of bladder (principal) | CPT/HCPCS: 87086 ==

== ENCOUNTER 2024-12-01 08:07 | Outpatient (CLI) | payer BC, SELFPAY ==
--- NOTE | 2024-12-01 08:15 | CRLHL7_ITS ---
For Patients: As a result of the Cures Act, medical imaging exams and procedure reports are released immediately into your electronic medical record. You may view this report before your referring provider. If you have questions, please contact your health care provider. Indication: Swelling and pain at left lower quadrant at scar Technique: Grayscale and color Doppler ultrasound of the lower abdominal wall performed. Comparison: CT 11/16/2024 Findings: Sonographic images demonstrate the rectus abdominis muscles bilaterally. No fluid collection or abscess. No abnormal vascularity. The left rectus muscle is slightly larger than the right rectus muscle. No hernia is present. Impression: No suspicious findings. No evidence of hernia or fluid collection. Dictated by Sheng Kc MD @ 12/01/2024 1:03:29 PM (Electronically Signed)
== END 2024-12-01 08:08 | disposition home or self-care (01) ==
LOC: US 08:08
PROVIDERS: PCP Family Medicine; Visit Provider Surgery
DX: R10.32 Left lower quadrant pain (principal)
CPT/HCPCS: 76705